=== PATIENT | female | born 1950 | race Caucasian/White ===

== ENCOUNTER 2019-10-13 07:58 | Outpatient (RCR) | payer OTHER, SELFPAY ==
[2019-10-15 06:27] LABS: Basophils Percent Auto 0.4 % (0.2-1.2); Eosinophils Absolute Auto 0.2 K/mm3 (0-0.3); Eosinophils Percent Auto 3.1 % (0-4.4); Hematocrit 32.9 % (37.0-47.0); Hemoglobin 10.3 g/dL (12.0-15.0); Immature Granulocyte Absolute 0.02 K/mm3 (0.00-0.031); Immature Granulocyte Percent A 0.3 % (0-0.5); Lymphocytes Absolute Auto 2.45 K/mm3 (0.9-3.2); Lymphocytes Percent Auto 36.2 % (18.3-44.2); Mean Corpuscular HGB Conc 31.3 g/dl (32-36); Mean Corpuscular Hemoglobin 23.6 pg (26-34); Mean Corpuscular Volume 75.5 fl (80-100); Mean Platelet Volume 9.4 fl (7.4-10.4); Monocytes Absolute Auto 0.7 K/mm3 (0.1-0.6); Monocytes Percent Auto 10.1 % (2.6-8.5); Neutrophils Absolute Auto 3.4 K/mm3 (1.3-6.7); Neutrophils Percent Auto 49.9 % (45.5-73.1); Platelet Count Result 318 k/mm3 (150-375); Red Blood Count 4.36 M/mm3 (4.2-5.4); Red Cell Distribution Width 18.7 % (11.5-14.5); White Blood Count 6.8 K/mm3 (4.5-10.0)
[2019-10-15 06:41] LABS: Alanine Aminotransferase 51 U/L (4-35); Alkaline Phosphatase 123 U/L (38-126); Aspartate Amino Transferase 41 U/L (14-36); Bilirubin,Total 0.2 mg/dL (0.2-1.3); Blood Urea Nitrogen 9 mg/dL (7-17); Calcium 9.4 mg/dL (8.4-10.2); Carbon Dioxide 25 mmol/L (22-30); Chloride 101 mmol/L (98-107); Cholesterol 102 mg/dL (0-200); Estimated Glomerular Filt Rate 55; Glucose 145 mg/dL (65-105); HDL Direct 30 mg/dL; Potassium 3.3 mmol/L (3.4-5.0); Sodium 139 mmol/L (137-145); Triglycerides 142 mg/dL (<150)
[2019-10-15 06:52] LABS: LDL Cholesterol Direct 54 mg/dL
[2019-10-15 09:14] LABS: Hemoglobin A1C 6.8 % (<5.7)
== END 2020-01-11 23:59 | disposition home or self-care (01) ==
LOC: CAMBRIDGE 07:58
DX: E78.2 Mixed hyperlipidemia (principal); E11.9 Type 2 diabetes mellitus without complications; E03.9 Hypothyroidism, unspecified; I10 Essential (primary) hypertension
CPT/HCPCS: 36415; 80053; 80061; 83036; 84443; 85025

== ENCOUNTER 2020-10-17 14:12 | Inpatient (IN) | payer OTHER, SELFPAY ==
[2020-10-17] VITALS (7 sets, daily range): BP systolic 141–157; BP diastolic 59–70; PULSE 71–82; RESP 18–28; TEMP 36.7–37.1; O2SAT 92–99; BMI 33.7; BMI 33.4
--- NOTE | ~2020-10-17 | XR_ITS ---
EXAMINATION: XR chest 1V portable DATE: 10/19/2020 06:10 INDICATION: Bilateral pleural effusions. Respiratory failure. TECHNIQUE: frontal view of the chest was obtained. COMPARISON: Chest radiograph and CT dated 10/17/2020 FINDINGS: Streaky opacities in the right midlung zone and at the bilateral lung bases. Small more patchy airspa ce opacity in the left lower lung zone. No pneumothorax or evident pleural effusion. Heart size is no rmal. Moderate-sized hiatal hernia. IMPRESSION: 1. Mild opacities in the right mid and bilateral lower lung zones which could represent atelectasis o r pneumonia. Reviewed, dictated and finalized at location A. OPERATOR IMPRESSION: 1. Mild opacities in the right mid and bilateral lower lung zones which could r epresent atelectasis or pneumonia.
--- NOTE | ~2020-10-17 | XR_ITS ---
EXAMINATION: XR chest 2V DATE: 10/17/2020 15:11 INDICATION: Shortness of breath TECHNIQUE: AP and lateral views of the chest are obtained. COMPARISON: 08/07/2019 FINDINGS: Small pleural effusions are present. There are airspace opacities of the lung bases. No pne umothorax is identified. The heart size is normal. There is a moderate-sized sliding hiatal hernia. T here is moderate thoracic spondylosis. IMPRESSION: 1. Small pleural effusions. 2. Minimal bibasilar airspace opacity, consistent with atelectasis versus pneumonia. Reviewed, dictated and finalized at location A. DYEING MACHINE LOADER IMPRESSION: 1. Small pleural effusions. 2. Minimal bibasilar airspace opacity, consistent with atelectasis versus pneum onia.
--- NOTE | ~2020-10-17 | CT_ITS ---
EXAMINATION: CTA chest PE protocol EXAM DATE: 10/17/2020 16:36 INDICATION: Shortness of breath and elevated d-dimer. TECHNIQUE: Spiral CTA of the chest (pulmonary arteries) was performed with 100 cc Omnipaque 350 intr avenous contrast injection. Images were acquired during the pulmonary arterial phase. Coronal maxi mum intensity projection 3D-reconstructions were created by the technologist on dedicated workstation . Axial, coronal and sagittal reformatted images were reviewed. The dose-length product (DLP) for t his examination was 963.26 mGy-cm. The exposure was tailored according to patient size (auto mA exp osure control), and iterative reconstruction (ASIR) was used as additional dose reduction technique. Comparison is made to prior examination from 12/24/2018. FINDINGS: Mild to moderate emphysema. There is some respiratory motion limiting evaluation of the bas ilar segmental pulmonary arteries. There are no intraluminal filling defects identified. Small to mod erate left, and small right pleural effusions. Heart is normal in size. There is pulmonary vascular c ongestion. There is increased basilar reticulation most likely pulmonary edema. Approximately 1 cm re gion of left upper lobe subsolid attenuation, could be edema or infection, but recommend one-month fo llow-up chest CT to exclude cancer. There is also some dependent atelectasis and possibly infection, clinical correlation. There is large gastroesophageal hiatal hernia. There are enlarged mediastinal lymph nodes, with one node or nodes m easuring 1.2 x 2.0 cm. These are new compared to previous examination. Small bilateral renal lesions statistically most likely cysts. Chronic L1 burst fracture unchanged. There are no osteoblastic or os teolytic lesions identified. IMPRESSION: 1. Pulmonary vascular congestion, and probable pulmonary edema. CHF exacerbation? 2. Small to moderate left, small right pleural effusions. Adjacent subsegmental posterior sulcal ate lectasis and probably pneumonia. 3. Indeterminate left upper lobe 1 cm nodular opacity. 4. Development of mediastinal lymphadenopathy, could be reactive. Lymphoma or metastatic disease not excludable. 5. Chronic L1 burst fracture. 6. Large gastroesophageal hiatal hernia. 7. Follow-up chest CT recommended in 1-3 months for the lymphadenopathy and left upper lobe nodular density. 8. No pulmonary emboli suspected. Reviewed, dictated and finalized at location B. RETE POINTER IMPRESSION: 1. Pulmonary vascular congestion, and probable pulmonary edema. CHF exacerbati on? 2. Small to moderate left, small right pleural effusions. Adjacent subsegmenta l posterior sulcal atelectasis and probably pneumonia. 3. Indeterminate left upper lobe 1 cm nodular opacity. 4. Development of mediastinal lymphadenopathy, could be reactive. Lymphoma or metastatic disease not excludable. 5. Chronic L1 burst fracture. 6. Large gastroesophageal hiatal hernia. 7. Follow-up chest CT recommended in 1-3 months for the lymphadenopathy and le ft upper lobe nodular density. 8. No pulmonary emboli suspected.
--- NOTE | 2020-10-17 14:13 | ECG_ITS ---
Measurements Intervals [place] Rate: 78 P: 59 [place]: 170 QRS: 9 QRSD: 89 T: 56 QT: 387 QTc: 443 Interpretive Statements SINUS RHYTHM BASELINE ARTIFACT- I, II, AVR, AVL, AVF, V1-V6 NORMAL ECG Electronically Signed On 10-17-2020 14:36:13 EXCHANGE ADMINISTRATOR by Rio Gannon D.O.
--- NOTE | 2020-10-17 14:56 | ED.SOB ---
HPI - SOB/Dyspnea General Chief Complaint: Shortness of Breath/Dyspnea Stated Complaint: DIFFICULTY BREATHING X1 WEEK Time Seen by Provider: 10/17/20 14:49 Source: patient and EMS Mode of arrival: EMS Limitations: no limitations History of Present Illness HPI Narrative: Patient is 70 years old white female came from [facility] with a chief complaint of shortness of breath over the last few days with hypoxia. The skilled nursing staff is telling me that the account leader staff been tested positive for Covid over the last few days. Including the manager of program.. Patient Covid test was negative 1-week ago, was scheduled to get a Covid test today, but came to the emergency room instead. Related Data Home Medications Medication Instructions Recorded Confirmed albuterol sulfate 90 mcg/actuation 1 puff INHALATION Q4H PRN 06/06/20 aerosol inhaler amlodipine 5 mg tablet 5 mg PO DAILY 06/06/20 atenolol 50 mg tablet 50 mg PO DAILY 06/06/20 buspirone 15 mg tablet 15 mg PO BID 06/06/20 citalopram 20 mg tablet 20 mg PO DAILY 06/06/20 fluoxetine 10 mg capsule 10 mg PO DAILY 06/06/20 fluticasone furoate 50 INHALATION 06/06/20 mcg/actuation blister powder for inhalation hydralazine 50 mg tablet 50 mg PO TID 06/06/20 metformin 1,000 mg tablet 1,000 mg PO DAILY 06/06/20 oxybutynin chloride 5 mg tablet 5 mg PO DAILY 06/06/20 pravastatin 40 mg tablet 40 mg PO DAILY 06/06/20 clonazepam 10/17/20 lactulose [Generlac] 10/17/20 metoclopramide HCl 10 mg PO BID 10/17/20 ranitidine HCl mg 10/17/20 trazodone 10/17/20 Allergies Allergy/AdvReac Type Severity Reaction Status Date / Time No Known Allergies Allergy Verified 10/17/20 18:00 Review of Systems Review of Systems: Narrative: CONSTITUTIONAL: Denies fever, chills, or sweats. EYES: Denies visual changes, redness, or discharge. ENT: Denies rhinorrhea, congestion, sore throat, or otalgia. CARDIOVASCULAR: Denies chest pain, palpitations, or edema. RESPIRATORY: Denies cough or dyspnea. GASTROINTESTINAL: Denies abdominal pain, nausea, vomiting, or diarrhea. GENITOURINARY: Denies dysuria or hematuria. SKIN: Denies rash or itching. MUSCULOSKELETAL: Denies back pain, joint pain, or myalgia. NEUROLOGIC: Denies headache, numbness, or weakness. PSYCHIATRIC: Denies anxiety or depression. PMFSH Past Medical History Medical History Acute sinusitis Acute urinary tract infection Anemia Anxiety Bipolar II disorder Bladder irritability Chest pain Colonoscopy causing post-procedural bleeding Constipation Deep venous thrombosis of lower extremity Essential hypertension GERD (gastroesophageal reflux disease) Hiatal hernia Hyperlipemia Hypothyroidism Irritable bowel syndrome with constipation Knee pain Liver function test abnormality Metabolic syndrome Mixed anxiety and depressive disorder Multiple fracture Multiple nodules of lung Nausea Occult blood in stools Recurrent urinary tract infection Renal failure syndrome Simple renal cyst Type 2 diabetes mellitus Family History Family History Other Diabetes mellitus Family history of alcoholism Family history of arthritis Family history of blood dyscrasia Family history of malignant neoplasm Family history of mental disorder Hypertension Social History Social History Smoking status: Never smoker Alcohol intake: never Exam Narrative: Exam Narrative: General appearance: Well-developed, well-nourished, restless, slight labored breathing Skin: Normal color Head: Normocephalic, nontraumatic Eyes: Clear conjunctiva ENT: Oropharynx normal, ears normal, nose normal Neck: Supp
[2020-10-17 14:58] LABS: Basophils Percent Auto 0.4 % (0.2-1.2); Eosinophils Absolute Auto 0.1 K/mm3 (0-0.3); Eosinophils Percent Auto 1.5 % (0-4.4); Hematocrit 31.2 % (37.0-47.0); Hemoglobin 9.7 g/dL (12.0-15.0); Immature Granulocyte Absolute 0.04 K/mm3 (0.00-0.031); Immature Granulocyte Percent A 0.5 % (0-0.5); Lymphocytes Absolute Auto 1.22 K/mm3 (0.9-3.2); Lymphocytes Percent Auto 14.8 % (18.3-44.2); Mean Corpuscular HGB Conc 31.1 g/dl (32-36); Mean Corpuscular Hemoglobin 25.3 pg (26-34); Mean Corpuscular Volume 81.3 fl (80-100); Monocytes Absolute Auto 0.7 K/mm3 (0.1-0.6); Monocytes Percent Auto 8.5 % (2.6-8.5); Neutrophils Absolute Auto 6.1 K/mm3 (1.3-6.7); Neutrophils Percent Auto 74.3 % (45.5-73.1); Platelet Count Result 326 k/mm3 (150-375); Red Blood Count 3.84 M/mm3 (4.2-5.4); Red Cell Distribution Width 18.4 % (11.5-14.5); White Blood Count 8.3 K/mm3 (4.5-10.0)
[2020-10-17 15:15] LABS: Anion Gap 11 mmol/L (8-16); Blood Urea Nitrogen 16 mg/dL (7-17); Calcium 8.8 mg/dL (8.4-10.2); Carbon Dioxide 19 mmol/L (22-30); Chloride 106 mmol/L (98-107); Estimated CRCL calculation 52 ml/min; Estimated Glomerular Filt Rate 49; Glucose 133 mg/dL (65-105); Potassium 3.9 mmol/L (3.4-5.0); Sodium 136 mmol/L (137-145)
[2020-10-17 15:17] LABS: Alveolar/Arterial O2 Gradient 45.1 mmHg; Base Excess ABG -7.1 mEq/l (+/-2.0); Device ROOM AIR; Fractional Inspired Oxygen 21 %; HCO3 ABG 16.4 mEq/l (22.0-26.0); Modified Allen's Test Pass; Oxygen Content ABG 13.9 %vol (16.0-22.0); Oxygen Saturation ABG 94.9 % (95.0-100.0); Oxyhemoglobin 92.9 % THb (90.0-100.0); PCO2 ABG 27.1 mmHg (35.0-45.0); PO2 ABG 72.2 mmHg (80.0-100.0); PO2 FiO2 Ratio Arterial Blood 3.44 %; Site Drawn RIGHT RADIAL; Total Hemoglobin 10.6 g/dL (12.0-18.0); pH ABG 7.401 (7.350-7.450)
[2020-10-17 16:00] LABS: Prothrombin Time 14.2 Seconds (11.1-14.7)
[2020-10-17 16:03] LABS: D Dimer 0.85 ug/mL (<0.48)
[2020-10-17 16:05] LABS: Alanine Aminotransferase 34 U/L (4-35); Albumin Level 3.9 g/dL (3.5-5.1); Alkaline Phosphatase 127 U/L (38-126); Aspartate Amino Transferase 46 U/L (14-36); Bilirubin,Total 0.4 mg/dL (0.2-1.3); CRP 0.9 mg/dL (<1.0)
[2020-10-17 16:21] LABS: Lactic Acid Reflex 3.8 mmol/L (0.7-2.1)
--- NOTE | 2020-10-17 16:30 | PM.IMHP ---
H&P: HPI History of Present Illness Date/Time: 10/17/20 16:30 Chief Complaint: Shortness of breath. Narrative: Marcela Rayo is a 70-year-old female with type 2 diabetes mellitus, hypertension, chronic anemia, and bipolar disorder who presented to the emergency department earlier today via EMS from [facility] for evaluation of shortness of breath. Over the past week or so she reports progressive shortness of breath, sinus congestion, orthopnea, and cough occasionally productive of clear phlegm. Multiple staff members at [facility] have tested positive for COVID-19 over the past weekend and she was sent in today for evaluation. On EMS arrival her SpO2 was 88% on room air and she was placed on 3 L nasal cannula. Imaging done in the emergency department showed findings consistent with possible congestive heart failure as well as pneumonia, and she is being admitted in this setting. She has no known history of coronary artery disease or congestive heart failure and denies exertional chest pain. She has not had nausea or vomiting. No fever, chills, or sweats. Review of Systems Review of Systems: Narrative: Twelve systems were reviewed with pertinent positives and negatives as per HPI. No headache. She denies anosmia and dysgeusia. No palpitations or racing heart. Mild orthopnea. No significant lower extremity edema. She denies PND. Appetite has been okay. No nausea, vomiting, or diarrhea. No dysuria. Since receiving Lasix in the emergency department she has urinated quite a bit. She believes her diabetes is fairly well controlled. No blurry vision, polydipsia, or polyuria. [facility] Past Medical History Medical History (Updated 10/17/20 @ 23:35 by Radha Wolff PA-C) Anxiety Bipolar II disorder Chronic anemia Essential hypertension Fracture Including fractures of the pelvis, right wrist, foot, and ankle. Gastroesophageal reflux disease Hiatal hernia History of deep venous thrombosis Hyperlipemia Hypothyroidism Irritable bowel syndrome with constipation Metabolic syndrome Mixed anxiety and depressive disorder Multiple nodules of lung Recurrent urinary tract infection Schizophrenia Type 2 diabetes mellitus Hemoglobin A1c was 6.8% in September 2019. Surgical History Surgical History (Updated 10/17/20 @ 23:24 by Radha Wolff PA-C) History of section History of tubal ligation Family History Family History Other Diabetes mellitus Family history of alcoholism Family history of arthritis Family history of blood dyscrasia Family history of malignant neoplasm Family history of mental disorder Hypertension Social History Social History (Updated 10/17/20 @ 23:25 by Radha Wolff PA-C) Social History: The patient is a resident of [facility]. Lifelong nonsmoker. No alcohol or illicit substance use. Her daughter Jing Marinelli is her healthcare power of box finisher and she wishes to be a full code. Substance use: never Gender identity (if verbalized by the patient): Female Spiritual care concerns: No Meds Home Medications and Allergies Home Medications Medication Instructions Recorded Confirmed Type albuterol sulfate 90 mcg/actuation 1 puff INHALATION Q4H PRN 06/06/20 History aerosol inhaler amlodipine 5 mg tablet 5 mg PO DAILY 06/06/20 History atenolol 50 mg tablet 50 mg PO DAILY 06/06/20 History buspirone 15 mg tablet 15 mg PO BID 06/06/20 History citalopram 20 mg tablet 20 mg PO DAILY 06/06/20 History fluoxetine 10 mg capsule 10 mg PO DAILY 06/06/20 History fluticasone furoate 50 INHALATION 06/06/20 History mcg/actuation blister powder for inhalation hydralazine 50 mg tablet 50 mg PO TID 06/06/20 History metformin 1,000 mg tablet 1,000 mg PO DAILY 06/06/20 History oxybutynin chloride 5 mg tablet 5 mg PO DAILY 06/06/20 History pravastatin 40 mg tablet 40 mg PO DAILY 06/06/20 Hi
[2020-10-17 17:45] LABS: NT Pro B Type Natriuretic Pept 1560 PG/ML (5-100)
[2020-10-17] MEDS: NITROGLYCERIN OINTMENT 1 INCH DOSE TRANSDERM (18:40)
[2020-10-17] MEDS: FUROSEMIDE INJ 40 MG/4 ML VIAL 60 MG IV PUSH (18:42)
[2020-10-17 19:06] LABS: Reflex Lactic Acid Yes or No Add Lactic
[2020-10-17 19:29] LABS: Add Urine Microscopic? YES; Appearance Urine Clear (Clear); Bilirubin Urine Negative (Negative); Blood Urine Negative (Negative); Color Urine Colorless (Yellow); Glucose Urine UA Negative (Negative); Ketones Urine Negative (Negative); Leukocyte Esterase Ur 3+ LEU/UL (Negative); Nitrate Urine Negative (Negative); Protein Urine Negative (Negative); RBC Urine 0-2 /hpf (0-2); Renal Epithelial Cells Urine Rare /hpf (None Seen); Specific Grav Ur 1.013 (1.001-1.035); Squamous Epithelial Cell Urine Occasional /hpf (Few); Urobilinogen Urine Negative mg/dL (<2.0); WBC Urine 21-30 /hpf
[2020-10-17 19:40] LABS: Lactic Acid 2.3 mmol/L (0.7-2.1)
[2020-10-17] MEDS: FUROSEMIDE INJ 40 MG/4 ML VIAL 20 MG IV PUSH (20:49)
--- NOTE | 2020-10-17 23:16 | ADMGEN ---
This patient, Marcela Rayo, was admitted to 3 [facility] Surg Room 311-01. Patient/family oriented to hospital policies and general routines including ID bracelet, bed and alarms, visiting hours, pain management, procedures, bathroom and other care routines, personal items, smoking policy, room service/diet, and visiting hours. Information on how to activate the Rapid Response Team has been discussed. Patient/Family are encouraged to report perceived risks to care and to ask questions if they do not understand what they are told or what they should do.
[2020-10-18] VITALS (8 sets, daily range): BP systolic 139–159; BP diastolic 62–80; PULSE 68–88; RESP 16–20; TEMP 36.8–37.1; O2SAT 90–98
[2020-10-18 06:29] LABS: Hemoglobin A1C 5.7 % (<5.7)
[2020-10-18 06:37] LABS: Anion Gap 10 mmol/L (8-16); Blood Urea Nitrogen 14 mg/dL (7-17); Calcium 8.5 mg/dL (8.4-10.2); Carbon Dioxide 26 mmol/L (22-30); Chloride 100 mmol/L (98-107); Estimated CRCL calculation 46 ml/min; Estimated Glomerular Filt Rate 45; Glucose 105 mg/dL (65-105); Magnesium 1.8 mg/dL (1.6-2.3); Sodium 136 mmol/L (137-145)
[2020-10-18] MEDS: POTASSIUM CHLORIDE 20 MEQ TABLET.ER PO (08:15)
[2020-10-18] MEDS: FUROSEMIDE INJ 40 MG/4 ML VIAL 20 MG IV PUSH ×2 (08:16→20:59)
[2020-10-18] MEDS: POTASSIUM CHLORIDE 20 MEQ TABLET PO (08:17)
[2020-10-18 08:27] LABS: Glucose Point of Care 106 (65-105)
[2020-10-18] MEDS: DOCUSATE SODIUM 100 MG CAPSULE PO (10:54)
[2020-10-18] MEDS: busPIRone HCL 10 MG TABLET 30 MG PO ×2 (10:54→17:17)
[2020-10-18] MEDS: metFORMIN HCL 500 MG TABLET 1000 MG PO ×2 (10:54→17:18)
[2020-10-18] MEDS: PANTOPRAZOLE 40 MG TABLET PO (10:54)
[2020-10-18] MEDS: CITALOPRAM HYDROBROMIDE 20 MG TABLET PO (10:54)
[2020-10-18] MEDS: atenoloL 50 MG TABLET PO (10:55)
[2020-10-18] MEDS: FLUoxetine HCL 10 MG CAPSULE PO (10:55)
[2020-10-18] MEDS: OXYBUTYNIN CHLORIDE 5 MG TABLET 10 MG PO (10:55)
[2020-10-18] MEDS: amLODIPine BESYLATE 5 MG TABLET PO (10:55)
[2020-10-18] MEDS: PRAVASTATIN SODIUM 20 MG TABLET 40 MG PO (10:55)
[2020-10-18] MEDS: hydrALAZINE HCL 50 MG TABLET PO ×2 (10:55→17:17)
[2020-10-18 12:27] LABS: Glucose Point of Care 114 (65-105)
--- NOTE | 2020-10-18 13:55 | PM.IMPN ---
Progress Note: A&P Assessment and Plan (1) Acute respiratory failure with hypoxia: Code(s): J96.01 - Acute respiratory failure with hypoxia Status: Acute Assessment and Plan: Suspect may be related to BRAULIO pleural effusion, possible pneumonia, COVID pending. Continue supplemental O2 and wean as tolerated to keep O2 saturations > 90%. (2) Bilateral pleural effusion: Code(s): J90 - Pleural effusion, not elsewhere classified Status: Acute Assessment and Plan: Noted on imaging with adjacent atelectasis and probable pneumonia. Continue diuresis with IV lasix and monitor electrolytes. Continue abx with azithro and rocephin for likely pneumonia while awaiting COVID results. Echocardiogram pending. Repeat chest XR in AM, consider thoracentesis if no improvement. (3) Chronic anemia: Code(s): D64.9 - Anemia, unspecified Status: Chronic Assessment and Plan: Chronic based on review of previous labs. No evidence for acute bleeding. Check iron panel, B12, folate tomorrow. Monitor CBC. (4) Type 2 diabetes mellitus: Qualifiers: Diabetes mellitus group home insulin use: with cuff setter use Diabetes mellitus complication status: without complication Qualified Code(s): E11.9 - Type 2 diabetes mellitus without complications; Z79.4 - dispatch clerk (current) use of insulin Code(s): E11.9 - Type 2 diabetes mellitus without complications Status: Chronic Assessment and Plan: Hgb A1c 5.7%; continue home metformin. Monitor with accu-cheks and cover with SSI. (5) Essential hypertension: Code(s): I10 - Essential (primary) hypertension Status: Chronic Assessment and Plan: Stable, last 139/62. Continue home norvasc, atenolol, hydralazine. (6) Psychiatric illness: Code(s): F99 - Mental disorder, not otherwise specified Status: Chronic Assessment and Plan: Continue her home regimen; citalopram, clonazepam, fluoxetine. (7) Pulmonary nodule: Code(s): R91.1 - Solitary pulmonary nodule Status: Acute Assessment and Plan: Indeterminate left upper lobe 1cm nodule. Recommend follow up CT in 1 to 3 months. (8) Acute hypokalemia: Code(s): E87.6 - Hypokalemia Status: Acute Assessment and Plan: K low at 3.0 this AM and replaced. Monitor K and mag and replace as needed. Subjective Date/time seen: 10/18/20 1200 Interval history: Ms. Rayo is a 70yo F admitted for acute respiratory failure. She tells me her shortness of breath is improved. She denies chest pain. Did not sleep much last night. Tolerated some breakfast without nausea or vomiting. Denies lower extremity swelling. Was a bit agitated with nursing this morning but seems improved this afternoon after getting her medications restarted. Review of Systems Review of Systems: All systems reviewed & are unremarkable except as noted in HPI and below Exam Narrative: Exam Narrative: General: Well-developed female resting comfortably supine in bed in no distress. HEENT: Normocephalic. EOMI. Sclerae anicteric. Oral mucosa moist. Neck: Supple. No lymphadenopathy. Respiratory: Diminished breath sounds BRAULIO ++. Respirations are even and nonlabored. She is speaking in full sentences. Cardiovascular: Regular rate and rhythm. Gastrointestinal: Abdomen is soft, nontender, and nondistended, bowel sounds present. Skin: Warm and dry. Extremities: 2+ radial and pedal pulses BRAULIO. No edema. Neurological: No focal neurologic deficits noted. Speech is clear. Objective Data Vital Signs Vital Signs: Last Vi
[2020-10-18 17:22] LABS: Glucose Point of Care 107 (65-105)
[2020-10-18 18:44] LABS: SARS-CoV-2 RNA PCR Negative
[2020-10-18] MEDS: MAGNESIUM OXIDE 200 MG TABLET PO (21:01)
[2020-10-18] MEDS: traZODone HCL 50 MG TABLET 100 MG PO (21:01)
[2020-10-18 21:14] LABS: Glucose Point of Care 116 (65-105)
[2020-10-19] VITALS (8 sets, daily range): BP systolic 131–142; BP diastolic 45–61; PULSE 70–88; RESP 16–20; TEMP 36.3–36.7; O2SAT 90–99
--- NOTE | 2020-10-19 | ECHO_ITS ---
Patient Info Name: Marcela Rayo Age: 70 years : 1950 Gender: Female Ht: 66 in Wt: 207 lbs BSA: 2.13 m2 HR: 75 bpm BP: 144 / 80 mmHg Heart Rhythm: Sinus Rhythm Technical Quality: Good Exam Date: 10/19/2020 8:15 AM Exam Location: [facility] Patient Status: Inpatient Admit Date: 10/17/2020 Staff Ordering Physician: Radha Wolff PA-C Rotary Adjuster: Tej Lucero RDCS, RT Attending Provider: Brianna Su PA-C Referring Physician: New GUEVARA; Exam Type: CA echo doppler color flow Study Info Indications I10 - Essential (primary) hypertension Complete two-dimensional, color flow and Doppler transthoracic echocardiogram is performed. Strain analysis performed. Summary 1. Complete two-dimensional, color flow and Doppler transthoracic echocardiogram is performed. 2. Left ventricular chamber dimension is normal. 3. Left ventricular systolic function is normal, estimated at 55-60%. 4. Left atrial chamber dimension is mildly enlarged. 5. Trivial jet mitral regurgitation otherwise no significant valvular disease. Left Ventricle Left ventricular chamber dimension is normal. Left ventricular systolic function is normal, estimated at 55-60%. The left ventricular diastolic function is normal. Right Ventricle Right ventricular chamber dimension is normal. Left Atria Left atrial chamber dimension is mildly enlarged. Right Atria Right atrial chamber dimension is normal. Aortic Valve The aortic valve is normal. Pulmonic Valve The pulmonic valve is normal. Mitral Valve The mitral valve has normal leaflets. There is trace mitral valve regurgitation. Tricuspid Valve The tricuspid valve leaflets are normal. Pericardium/Pleural The pericardium appears normal. Aorta The aortic root size at the sinus of Valsalva is normal. Left Ventricular Outflow Tract Name Value Normal LVOT 2D LVOT Diameter 1.9 cm LVOT Doppler LVOT Peak Gradient 4 mmHg LVOT Mean Gradient 2 mmHg LVOT VTI 24 cm LVOT VTI/AV VTI Ratio 0.7 LVOT Stroke Volume 66 ml LVOT CO 4.8 l/min LVOT CI 2.2 l/min/m2 Mitral Valve Name Value Normal MV Doppler MV Decel [place] 496 cm/s2 MV PHT 64 ms MV Area (PHT) 3.4 cm2 4.0-5.0 MV Diastolic Function MV E Peak Velocity 110 cm/s MV A Peak Velocity 95 cm/s MV E/A 1.2 MV Decel Time 222 ms
[2020-10-19 06:11] LABS: Basophils Percent Auto 0.5 % (0.2-1.2); Eosinophils Absolute Auto 0.4 K/mm3 (0-0.3); Eosinophils Percent Auto 4.5 % (0-4.4); Hematocrit 30.5 % (37.0-47.0); Hemoglobin 9.4 g/dL (12.0-15.0); Immature Granulocyte Absolute 0.03 K/mm3 (0.00-0.031); Immature Granulocyte Percent A 0.4 % (0-0.5); Lymphocytes Absolute Auto 1.92 K/mm3 (0.9-3.2); Mean Corpuscular HGB Conc 30.8 g/dl (32-36); Mean Corpuscular Volume 81.1 fl (80-100); Mean Platelet Volume 9.5 fl (7.4-10.4); Monocytes Absolute Auto 0.7 K/mm3 (0.1-0.6); Monocytes Percent Auto 8.1 % (2.6-8.5); Neutrophils Percent Auto 62.5 % (45.5-73.1); Platelet Count Result 291 k/mm3 (150-375); Red Blood Count 3.76 M/mm3 (4.2-5.4); Red Cell Distribution Width 18.1 % (11.5-14.5)
[2020-10-19 06:17] LABS: INR 1.1; Prothrombin Time 14.8 Seconds (11.1-14.7)
[2020-10-19 06:22] LABS: Alanine Aminotransferase 28 U/L (4-35); Albumin Level 3.7 g/dL (3.5-5.1); Alkaline Phosphatase 125 U/L (38-126); Anion Gap 10 mmol/L (8-16); Aspartate Amino Transferase 31 U/L (14-36); Bilirubin,Total 0.4 mg/dL (0.2-1.3); Blood Urea Nitrogen 14 mg/dL (7-17); Calcium 8.5 mg/dL (8.4-10.2); Carbon Dioxide 28 mmol/L (22-30); Chloride 101 mmol/L (98-107); Estimated CRCL calculation 46 ml/min; Estimated Glomerular Filt Rate 45; Glucose 106 mg/dL (65-105); Magnesium 1.9 mg/dL (1.6-2.3); Potassium 3.8 mmol/L (3.4-5.0); Sodium 139 mmol/L (137-145)
[2020-10-19 07:12] LABS: Iron 13 ug/dL (37-170)
[2020-10-19 07:21] LABS: Percent Iron Saturation 3 % (20-50)
[2020-10-19 08:13] LABS: Glucose Point of Care 117 (65-105)
[2020-10-19 08:23] LABS: Folic Acid 16.4 ng/mL (2.76->20)
[2020-10-19] MEDS: POTASSIUM CHLORIDE 20 MEQ TABLET.ER PO (08:43)
[2020-10-19] MEDS: MAGNESIUM OXIDE 200 MG TABLET PO (08:43)
[2020-10-19] MEDS: FLUoxetine HCL 10 MG CAPSULE PO (08:44)
[2020-10-19] MEDS: amLODIPine BESYLATE 5 MG TABLET PO (08:44)
[2020-10-19] MEDS: OXYBUTYNIN CHLORIDE 5 MG TABLET 10 MG PO (08:44)
[2020-10-19] MEDS: PANTOPRAZOLE 40 MG TABLET PO (08:44)
[2020-10-19] MEDS: PRAVASTATIN SODIUM 20 MG TABLET 40 MG PO (08:44)
[2020-10-19] MEDS: DOCUSATE SODIUM 100 MG CAPSULE PO (08:44)
[2020-10-19] MEDS: metFORMIN HCL 500 MG TABLET 1000 MG PO (08:44)
[2020-10-19] MEDS: atenoloL 50 MG TABLET PO (08:45)
[2020-10-19] MEDS: busPIRone HCL 10 MG TABLET 30 MG PO (08:45)
[2020-10-19] MEDS: CITALOPRAM HYDROBROMIDE 20 MG TABLET PO (08:45)
[2020-10-19] MEDS: FUROSEMIDE INJ 40 MG/4 ML VIAL 20 MG IV PUSH (08:45)
[2020-10-19] MEDS: hydrALAZINE HCL 50 MG TABLET PO ×2 (11:32→11:48)
[2020-10-19 11:37] LABS: Glucose Point of Care 127 (65-105)
--- NOTE | 2020-10-19 12:47 | PM.DS ---
DS: Admitting Diagnosis Admitting Diagnosis Admitting Diagnosis: Acute respiratory failure, pleural effusion, pneumonia DS: Discharge Diagnosis Discharge Diagnosis (1) Acute respiratory failure with hypoxia: Code(s): J96.01 - Acute respiratory failure with hypoxia Status: Acute Assessment and Plan: Date of Admission 10/17/20 Date of Discharge/DOS 10/19/20 Ms. Rayo is a 70yo F with history of bipolar disorder, hypertension, chronic anemia, and type-2 diabetes mellitus who presented to the ED from [facility] for evaluation of shortness of breath worsening over 1 week, noted to be 88% O2 on room air by EMS. Imaging demonstrated BRAULIO pleural effusions with a possible adjacent pneumonia. COVID negative. She was treated with IV azithromycin and rocephin for possible pneumonia. She has erythromycin based listed on allergy list however she tolerated azithromycin with no issues while hospitalized. She responded well to diuresis with IV lasix and repeat chest XR was improved without pleural effusions. She was able to be weaned off supplemental O2 after requiring up to 3L/min and was tolerating room air with adequate oxygen saturations on day of discharge. Blood pressures were stable maintained on her home antihypertensive regimen. Mood remained mostly stable on her psychiatric medication regimen without issue. She was hemodynamically stable for discharge back to assisted living on 10/19/20. Imaging did demonstrate a small lung nodule that should be followed up outpatient with repeat CT in 1 to 3 months. Suspect may be related to BRAULIO pleural effusion, possible pneumonia, COVID negative. Resolved, tolerating room air day of discharge. (2) Bilateral pleural effusion: Code(s): J90 - Pleural effusion, not elsewhere classified Status: Acute Assessment and Plan: Improved. Noted on imaging with adjacent atelectasis and probable pneumonia. Diuresis with IV lasix and monitor electrolytes. abx with azithro and rocephin for likely pneumonia. Echocardiogram normal, detailed below. (3) Chronic anemia: Code(s): D64.9 - Anemia, unspecified Status: Chronic Assessment and Plan: Chronic based on review of previous labs. No evidence for acute bleeding. Iron low, start oral supplementation. Monitor CBC. (4) Type 2 diabetes mellitus: Qualifiers: Diabetes mellitus assisted insulin use: with terminal manager use Diabetes mellitus complication status: without complication Qualified Code(s): E11.9 - Type 2 diabetes mellitus without complications; Z79.4 - superintendent container terminal (current) use of insulin Code(s): E11.9 - Type 2 diabetes mellitus without complications Status: Chronic Assessment and Plan: Hgb A1c 5.7%; continue home metformin. (5) Essential hypertension: Code(s): I10 - Essential (primary) hypertension Status: Chronic Assessment and Plan: Stable maintained on home norvasc, atenolol, hydralazine. (6) Psychiatric illness: Code(s): F99 - Mental disorder, not otherwise specified Status: Chronic Assessment and Plan: Continue her home regimen; citalopram, clonazepam, fluoxetine. (7) Pulmonary nodule: Code(s): R91.1 - Solitary pulmonary nodule Status: Acute Assessment and Plan: Indeterminate left upper lobe 1cm nodule. Recommend follow up CT in 1 to 3 months. (8) Acute hypokalemia: Code(s): E87.6 - Hypokalemia Status: Acute Assessment and Plan: K low and replaced, suspect secondary to IV diuresis. DS: S
[2020-10-19 22:37] LABS: Pneumococcal Antigen Urine Not Detected (Not Detected)
[2020-10-20 04:40] LABS: Legionella pneumophila Ag Ur Not Detected (Not Detected)
--- NOTE | 2020-10-20 15:53 | PC.NURSE ---
Received call from Ronit at [facility] ([phone]) regarding zithromax antibiotic on discharge instructions. I discussed this with Brianna and the patient had received the antibiotic here iv prior to discharge and did not have any reaction. The patient had vomiting listed as the reaction. OK for patient to receive zithromax per Brianna. Ronit aware.
== END 2020-10-19 16:10 | DRG 139 ==
LOC: ANHED 18:22 → ANH3MEDSUR 18:43
PROVIDERS: Physician Assistant; Admitting Provider Family Medicine; Emergency Provider Emergency Medicine; PCP Internal Medicine; Visit Provider Physician Assistant
DX: J18.9 Pneumonia, unspecified organism (principal); J91.8 Pleural effusion in other conditions classified elsewhere; J96.01 Acute respiratory failure with hypoxia; E11.9 Type 2 diabetes mellitus without complications; Z20.828 Contact with and (suspected) exposure to other viral communicable diseases; D64.9 Anemia, unspecified; I10 Essential (primary) hypertension; R91.1 Solitary pulmonary nodule; F99 Mental disorder, not otherwise specified; F31.81 Bipolar II disorder; E87.6 Hypokalemia; K21.9 Gastro-esophageal reflux disease without esophagitis; K46.9 Unspecified abdominal hernia without obstruction or gangrene; E78.5 Hyperlipidemia, unspecified; K58.1 Irritable bowel syndrome with constipation; F41.8 Other specified anxiety disorders; Z86.718 Personal history of other venous thrombosis and embolism
CPT/HCPCS: 36415; 36600; 71045; 71046; 71275; 80048; 80053; 80076; 81001; 82607; 82746; 82805; 83036; 83540; 83550; 83605; 83735; 83880; 84443; 85025; 85380; 85610; 85730; 86140; 87040; 87086; 87088; 87449; 87635; 87899; 93005; 93306; 96374; 99285; A9270; C9803; J0131; J0456; J0696; J1940; Q9967; U0003

== ENCOUNTER 2020-11-11 09:14 | Outpatient (CLI) | payer OTHER, SELFPAY | END 2020-11-11 09:15 | disposition home or self-care (01) | LOC: ANHAUDIO 09:16 | PROVIDERS: PCP Internal Medicine; Referring Provider Internal Medicine; Visit Provider Internal Medicine | DX: H91.90 Unspecified hearing loss, unspecified ear (principal) | CPT/HCPCS: 92553; 92555; 92567 ==

== ENCOUNTER 2020-12-15 12:57 | Outpatient (RCR) | payer OTHER, SELFPAY | END 2020-12-15 23:59 | disposition home or self-care (01) | LOC: ANHAUDIO 12:57 | PROVIDERS: PCP Internal Medicine; Visit Provider Internal Medicine | DX: Z46.1 Encounter for fitting and adjustment of hearing aid (principal) | CPT/HCPCS: V5160; V5261; V5264 ==

== ENCOUNTER 2021-02-14 08:35 | Outpatient (CLI) | payer OTHER, SELFPAY ==
--- NOTE | 2021-02-15 09:58 | P.NEURO_ITS ---
Neurology EEG Report General Information Date of Study: 02/14/21 TEST eeg DIAGNOSIS Memory loss CONDITION OF RECORDING awake with constant eye movements throughout the tracing EEG NUMBER [id number] CLINICAL HISTORY patient reported she does not know why she is having this particular test other than to make daughter happy EEG DESCRIPTION basic resting occipital frequency consists of low to medium voltage well- organized 8 to 10 hertz per second alpha admixed with multiple movements artifacts and eye movement artifacts. Hyperventilation not done .photic stimulation produced normal drive . Non paroxysmal. Nonfocal. Nonlateralizing. IMPRESSION No significant abnormalities noted
== END 2021-02-14 08:36 | disposition home or self-care (01) ==
LOC: ANHNEURO 08:35
PROVIDERS: PCP Internal Medicine; Visit Provider Psychiatry & Neurology Neurology
DX: R41.3 Other amnesia (principal)
CPT/HCPCS: 95816

== ENCOUNTER 2022-01-23 12:11 | Outpatient (CLI) | payer OTHER, SELFPAY ==
--- NOTE | ~2022-01-23 | CT_ITS ---
EXAMINATION:CT diagnostic chest wo con DATE: 01/23/2022 12:44 INDICATION: Multiple nodules of lung. TECHNIQUE: Computed tomography (CT) of the chest was performed without intravenous contrast. Automate d exposure control and iterative reconstruction technique were employed. The dose-length product (DLP ) was 170.76 mGy-cm. COMPARISON: Chest CT 10/17/2020 FINDINGS: There is mild atelectasis in the lungs. There is a 9 mm part-solid nodule in left upper lob e with interval improvement. There are mild peripheral groundglass opacities with septal thickening i n the lungs, likely chronic lung disease. No bronchiectasis or honeycombing. No pleural effusion. The heart size is normal. No pericardial effusion. There is a moderate-sized sliding hiatal hernia. Ther e is mild mediastinal lymphadenopathy. There are cysts in the kidneys measuring up to 9 mm on the lef t. There is moderate thoracic spondylosis. There is a chronic compression fracture of T6. There is a chronic burst fracture of L1. IMPRESSION: 1. Part-solid nodule in left lung upper lobe with interval improvement, likely benign. 2. Moderate-sized sliding hiatal hernia. 3. Mild mediastinal lymphadenopathy with interval improvement, likely reactive. Reviewed, dictated and finalized at location A.
== END 2022-01-23 12:12 | disposition home or self-care (01) ==
PROVIDERS: PCP Internal Medicine; Visit Provider Internal Medicine
DX: R91.8 Other nonspecific abnormal finding of lung field (principal); K44.9 Diaphragmatic hernia without obstruction or gangrene
CPT/HCPCS: 71250

== ENCOUNTER 2022-07-29 05:13 | Emergency (ER) | payer OTHER, SELFPAY ==
--- NOTE | ~2022-07-29 | CT_ITS ---
EXAMINATION: CT brain wo con DATE: 07/29/2022 05:58 INDICATION: Status post fall with head trauma. TECHNIQUE: Computed tomography (CT) of the head was performed without intravenous contrast. The dose- length product was 605.33 mGy-cm. Automated exposure control and iterative reconstruction technique w ere employed. COMPARISON: CT dated 07/06/2019 FINDINGS: Mild generalized atrophy. There are scattered mild periventricular and subcortical white ma tter changes, most likely related to small vessel ischemic disease (microangiopathy). No ventriculome jaqui or midline shift. Basilar cisterns are patent. No acute intracranial hemorrhage, infarction, mas s or mass effect. There is mucus or tension cyst in the left sphenoid sinus. Mastoids are pneumatized . No depressed skull fractures. IMPRESSION: 1. No acute intracranial abnormality. Reviewed, dictated and finalized at location A.
--- NOTE | ~2022-07-29 | XR_ITS ---
XR ankle RT min 3V 07/29/2022 06:21 Indication: Right ankle pain Procedure: 4 views right ankle Comparison: Comparison to multiple prior studies sequentially, with oldest reviewed study dated 12/30. Findings: There is a healed distal fibular fracture. There is an osteochondral defect medial aspect o f the talus. Osteopenia. There is a degenerative calcaneal enthesophyte. There is atherosclerosis. Mo derate osteoarthritis of the midfoot. Impression: 1: No acute fracture. 2: Osteochondral defect medial aspect of the talar dome. Reviewed, dictated and finalized at location A. Impression: 1: No acute fracture. 2: Osteochondral defect medial aspect of the talar dome.
--- NOTE | ~2022-07-29 | XR_ITS ---
XR knee RT min 4V 07/29/2022 06:21 Indication: Right knee pain Procedure: 4 views right knee Comparison: No prior studies for comparison. Findings: There is mild tricompartment osteoarthritis of the right knee. No fracture or traumatic mal alignment. No significant joint effusion. No radiopaque foreign bodies. Impression: 1: Mild osteoarthritis of the right knee. Reviewed, dictated and finalized at location A. Impression: 1: Mild osteoarthritis of the right knee.
[2022-07-29 05:10] VITALS: BP 183/101; PULSE 75; RESP 18; TEMP 37; O2SAT 95
--- NOTE | 2022-07-29 05:20 | ED.LOWEXIN ---
HPI - Extremity Injury (Lower) General Chief Complaint: Extremity Injury, Lower Stated Complaint: right knee and ankle pain s/p fall Time Seen by Provider: 07/29/22 05:17 History of Present Illness HPI Narrative: This is a 72-year-old female with past medical history of hypertension, hypothyroidism, brought in by EMS for right ankle and right knee pain after a fall. She states earlier this evening she was walking back from an, when she slipped in the grass with immediate right ankle and knee pain, both described as sharp, 8/10 and not radiating. She states she also struck her head on a car bumper without LOC. She has no other complaints today. Related Data Home Medications Medication Instructions Recorded Confirmed albuterol sulfate 90 mcg/actuation 2 puff inhalation Q4H PRN 06/06/20 01/31/22 aerosol inhaler Shortness Of Breath amlodipine 5 mg tablet 5 mg PO DAILY 06/06/20 01/31/22 fluoxetine 10 mg capsule 10 mg PO DAILY 06/06/20 01/31/22 fluticasone furoate 50 1 mcg inhalation DAILY 06/06/20 01/31/22 mcg/actuation blister powder for inhalation hydralazine 50 mg tablet 50 mg PO TID 06/06/20 01/31/22 metformin 1,000 mg tablet 1,000 mg PO BID 06/06/20 01/31/22 oxybutynin chloride 5 mg tablet 10 mg PO DAILY 06/06/20 01/31/22 pravastatin 40 mg tablet 40 mg PO DAILY 06/06/20 01/31/22 atenolol 50 mg tablet 50 mg PO TID 01/31/21 01/31/22 buspirone 15 mg tablet 15 mg PO BID 01/31/21 01/31/22 levothyroxine 25 mcg tablet 25 mcg PO DAILY 01/31/21 06/21/21 mecobalamin (vitamin B12) 1,000 1,000 mcg PO DAILY 01/31/21 01/31/22 mcg chewable tablet trazodone 100 mg tablet 200 mg PO QHS PRN 01/31/21 01/31/22 Allergies Allergy/AdvReac Type Severity Reaction Status Date / Time aspirin Allergy Unknown Unknown Verified 07/29/22 05:18 erythromycin base Allergy Vomiting Verified 07/29/22 05:18 [From Erythrocin] Review of Systems Review of Systems: CONSTITUTIONAL: Denies fever, chills, or sweats. CARDIOVASCULAR: Denies chest pain, palpitations, or edema. RESPIRATORY: Denies cough or dyspnea. GASTROINTESTINAL: Denies abdominal pain, nausea, vomiting, or diarrhea. GENITOURINARY: Denies dysuria or hematuria. SKIN: Denies rash or itching. MUSCULOSKELETAL: Right knee and ankle pain denies back pain, or myalgia. NEUROLOGIC: Denies headache, numbness, dizziness, or weakness. PSYCHIATRIC: Denies anxiety or depression. [facility] Past Medical History Medical History (Updated 07/29/22 @ 05:25 by Jas Franks MD) Anxiety Bipolar II disorder Chronic anemia Essential hypertension Fracture Including fractures of the pelvis, right wrist, foot, and ankle. Gastroesophageal reflux disease Hiatal hernia History of deep venous thrombosis Hyperlipemia Hypothyroidism Irritable bowel syndrome with constipation Metabolic syndrome Mixed anxiety and depressive disorder Multiple nodules of lung Obese Recurrent urinary tract infection Schizophrenia Type 2 diabetes mellitus Hemoglobin A1c was 6.8% in September 2019. Surgical History Surgical History History of section History of tubal ligation Family History Family History Other Diabetes mellitus Family history of alcoholism Family history of arthritis Family history of blood dyscrasia Family history of malignant neoplasm Family history of mental disorder Hypertension Social History Social History Social History: The patient is a resident of [facility]. Lifelong nonsmoker. No alcohol or illicit substance use. Her daughter Jing Marinelli is her healthcare power of corporate associate attorney and she wishes to be a full code. Alcohol intake: never Substance use: never Gender identity (if verbalized by the patient): Female Spiritual care concerns: No Exam Narrative: GENERAL: Well-appearing, well-nour
[2022-07-29] MEDS: oxyCODONE/ACETAMINOPHEN (*CRX) 5-325 MG TABLET 1 TABLET PO (05:29)
[2022-07-29] MEDS: hydrALAZINE HCL 50 MG TABLET PO (05:30)
== END 2022-07-29 07:19 ==
PROVIDERS: Emergency Provider Preventive Medicine Aerospace Medicine; PCP Internal Medicine
DX: S99.911A Unspecified injury of right ankle, initial encounter (principal); S89.91XA Unspecified injury of right lower leg, initial encounter; I10 Essential (primary) hypertension; E78.5 Hyperlipidemia, unspecified; E88.81 Metabolic syndrome and other insulin resistance; E11.9 Type 2 diabetes mellitus without complications; E03.9 Hypothyroidism, unspecified; K58.1 Irritable bowel syndrome with constipation; K21.9 Gastro-esophageal reflux disease without esophagitis; F41.8 Other specified anxiety disorders; F20.9 Schizophrenia, unspecified; F31.9 Bipolar disorder, unspecified; Z86.718 Personal history of other venous thrombosis and embolism; Z79.84 Long term (current) use of oral hypoglycemic drugs; Z87.440 Personal history of urinary (tract) infections; M17.31 Unilateral post-traumatic osteoarthritis, right knee; W01.0XXA Fall on same level from slipping, tripping and stumbling without subsequent striking against object, initial encounter
CPT/HCPCS: 70450; 73564; 73610; 99284; A9270

== ENCOUNTER 2023-03-11 19:13 | Inpatient (IN) | payer OTHER, SELFPAY ==
[2023-03-11] VITALS (16 sets, daily range): BP systolic 167–190; BP diastolic 88–107; PULSE 74–82; RESP 15–26; TEMP 36.9–37.3; O2SAT 88–97; BMI 37.6
--- NOTE | ~2023-03-11 | XR_ITS ---
XR chest 1V portable 03/13/2023 13:57 Indication: CHF. Shortness of breath. Procedure: AP portable chest Comparison: Comparison to multiple prior studies sequentially, with oldest reviewed study dated 07/28/2019. Findings: Large hiatal hernia. Heart size normal. No focal air space disease, pulmonary edema, pleura l effusion or suspected pneumothorax. No acute osseous abnormality. Impression: 1: No acute cardiopulmonary disease. 2: Large hiatal hernia. Reviewed, dictated and finalized at location B. Impression: 1: No acute cardiopulmonary disease. 2: Large hiatal hernia.
--- NOTE | ~2023-03-11 | XR_ITS ---
EXAMINATION: XR chest 1V portable Exam Date/Time: 03/11/2023 19:36 CDT HISTORY: dyspnea Comparison: 10/19/2020. RESULT: Lines, tubes, and devices: None. Lungs and pleura: Diffuse reticular opacities and Wm B lines. No effusion or focal consolidation . Mid right and bibasilar scar. Cardiomediastinal silhouette: Stable. Large hiatal hernia Other: No acute osseous or upper abdominal finding. IMPRESSION: Mild interstitial pulmonary edema. Reviewed, dictated and finalized at location K.
--- NOTE | 2023-03-11 19:23 | ECG_ITS ---
Measurements Intervals [place] Rate: 78 P: 74 GA: 177 QRS: 13 QRSD: 79 T: 44 QT: 401 QTc: 457 Interpretive Statements SINUS RHYTHM BASELINE WANDER- V1 NORMAL ECG COMPARED TO ECG 10/17/2020 14:16:55 NO SIGNIFICANT CHANGES Electronically Signed On 03-11-2023 21:37:09 CDT by Rio Gannon D.O.
--- NOTE | 2023-03-11 19:39 | ED.GENADULT ---
HPI - General Adult General Chief complaint: Shortness of Breath/Dyspnea Stated complaint: SOB, LOW O2 SATS History of Present Illness HPI narrative: This is a 72-year-old female from [facility] presenting ED for a low oxygen reading. Her oxygen levels at the [place] was found to be 82%. Patient is wearing bright blue nail Lithuanian. The patient is denying fevers chills chest pain difficulty breathing abdominal pain. patient denies history of heart failure Related Data Home Medications Medication Instructions Recorded Confirmed albuterol sulfate 90 mcg/actuation 2 puff inhalation Q4H PRN 06/06/20 01/31/22 aerosol inhaler Shortness Of Breath amlodipine 5 mg tablet 5 mg PO DAILY 06/06/20 01/31/22 fluoxetine 10 mg capsule 10 mg PO DAILY 06/06/20 01/31/22 fluticasone furoate 50 1 mcg inhalation DAILY 06/06/20 01/31/22 mcg/actuation blister powder for inhalation hydralazine 50 mg tablet 50 mg PO TID 06/06/20 01/31/22 metformin 1,000 mg tablet 1,000 mg PO BID 06/06/20 01/31/22 oxybutynin chloride 5 mg tablet 10 mg PO DAILY 06/06/20 01/31/22 pravastatin 40 mg tablet 40 mg PO DAILY 06/06/20 01/31/22 atenolol 50 mg tablet 50 mg PO TID 01/31/21 01/31/22 buspirone 15 mg tablet 15 mg PO BID 01/31/21 01/31/22 levothyroxine 25 mcg tablet 25 mcg PO DAILY 01/31/21 06/21/21 mecobalamin (vitamin B12) 1,000 1,000 mcg PO DAILY 01/31/21 01/31/22 mcg chewable tablet trazodone 100 mg tablet 200 mg PO QHS PRN 01/31/21 01/31/22 Allergies Allergy/AdvReac Type Severity Reaction Status Date / Time aspirin Allergy Unknown Unknown Verified 03/11/23 20:13 erythromycin base Allergy Vomiting Verified 03/11/23 20:13 [From Erythrocin] [facility] Past Medical History Medical History Anxiety Bipolar II disorder Chronic anemia Effusion of knee joint right Essential hypertension Fracture Including fractures of the pelvis, right wrist, foot, and ankle. Gastroesophageal reflux disease Hiatal hernia History of deep venous thrombosis Hyperlipemia Hypothyroidism Irritable bowel syndrome with constipation Metabolic syndrome Mixed anxiety and depressive disorder Multiple nodules of lung Obese Recurrent urinary tract infection Right knee DJD Right knee pain Schizophrenia Type 2 diabetes mellitus Hemoglobin A1c was 6.8% in September 2019. Surgical History Surgical History History of section History of tubal ligation Family History Family History Other Diabetes mellitus Family history of alcoholism Family history of arthritis Family history of blood dyscrasia Family history of malignant neoplasm Family history of mental disorder Hypertension Social History Social History Social History: The patient is a resident of [facility]. Lifelong nonsmoker. No alcohol or illicit substance use. Her daughter Jing Marinelli is her healthcare power of estate planning attorney and she wishes to be a full code. Smoking status: Never smoker Alcohol intake: never Substance use: never Gender identity (if verbalized by the patient): Female Spiritual care concerns: No Exam Narrative: APPEARANCE: No apparent distress. Head: atraumatic. EYES: EOMI, NOSE: Atraumatic NECK: Trachea midline RESPIRATORY: No increased rate of breathing , bibasilar crackles, CARDIOVASCULAR: RRR, +2 pitting edema of the lower extremities ABDOMINAL: Non-distended MUSCULOSKELETAl: No obvious deformities NEURO: Alert. Moving 4/4 extremities SKIN:: Warm, dry. Normal color PSYCHIATRIC: Normal affect Course Vital Signs Vital signs: Vital Signs Temperature 98.4 F 03/11/23 19:45 Pulse Rate 82 03/11/23 19:45 Respiratory Rate 26 H 03/11/23 19:45 Blood Pressure 190/88 H 03/11/23 19:45 Pulse Oximetry 91 03/11/23 19:45 Oxyge
[2023-03-11 19:56] LABS: Basophils Absolute Auto 0.1 K/mm3 (0.0-0.1); Basophils Percent Auto 0.5 % (0.2-1.2); Eosinophils Absolute Auto 0.1 K/mm3 (0-0.3); Eosinophils Percent Auto 0.6 % (0-4.4); Hemoglobin 12.7 g/dL (12.0-15.0); Immature Granulocyte Percent A 0.8 % (0-0.5); Lymphocytes Absolute Auto 1.25 K/mm3 (0.9-3.2); Lymphocytes Percent Auto 9.7 % (18.3-44.2); Mean Corpuscular HGB Conc 34.3 g/dl (32-36); Mean Corpuscular Hemoglobin 30.8 pg (26-34); Mean Corpuscular Volume 89.8 fl (80-100); Monocytes Percent Auto 7.9 % (2.6-8.5); Neutrophils Absolute Auto 10.3 K/mm3 (1.3-6.7); Neutrophils Percent Auto 80.5 % (45.5-73.1); Platelet Count Result 341 k/mm3 (150-375); Red Blood Count 4.12 M/mm3 (4.2-5.4); Red Cell Distribution Width 13.8 % (11.5-14.5); White Blood Count 12.8 K/mm3 (4.5-10.0)
[2023-03-11 20:09] LABS: Alanine Aminotransferase 38 U/L (6-35); Albumin Level 4.5 g/dL (3.5-5.1); Alkaline Phosphatase 100 U/L (38-126); Anion Gap 9 mmol/L (8-16); Aspartate Amino Transferase 37 U/L (14-36); Bilirubin,Total 0.5 mg/dL (0.2-1.3); Blood Urea Nitrogen 14 mg/dL (7-17); Calcium 8.9 mg/dL (8.4-10.2); Carbon Dioxide 26 mmol/L (22-30); Chloride 97 mmol/L (98-107); Estimated CRCL calculation 52 ml/min; Estimated Glomerular Filt Rate > 60; Glucose 121 mg/dL (65-110); Magnesium 1.8 mg/dL (1.6-2.3); Sodium 132 mmol/L (137-145)
[2023-03-11 20:17] LABS: NT Pro B Type Natriuretic Pept 2550 pg/mL (19.9-100); Troponin I < 0.012 ng/mL (0.000-0.034)
--- NOTE | 2023-03-11 20:33 | PC.NURSE ---
EDP aware of oxygen saturation. Respiratory contacted.
[2023-03-11 20:40] LABS: Influenza A QL RT-PCR Negative (Negative); Influenza B QL RT-PCR Negative (Negative); RSV RNA, RT-PCR Negative (Negative); SARS-CoV-2 RNA PCR Negative (Negative)
[2023-03-11] MEDS: FUROSEMIDE INJ 40 MG/4 ML VIAL IV PUSH (21:11)
[2023-03-11] MEDS: CLINDAMYCIN HCL 150 MG CAP 450 MG PO (23:13)
--- NOTE | 2023-03-11 23:36 | ADMGEN ---
This patient, Marcela Rayo, was admitted to Medical Room 242-01. Patient/family oriented to hospital policies and general routines including ID bracelet, bed and alarms, visiting hours, pain management, procedures, bathroom and other care routines, personal items, smoking policy, room service/diet, and visiting hours. Information on how to activate the Rapid Response Team has been discussed. Patient/Family are encouraged to report perceived risks to care and to ask questions if they do not understand what they are told or what they should do.
[2023-03-12] VITALS (12 sets, daily range): BP systolic 150–182; BP diastolic 63–85; PULSE 67–97; RESP 14–18; TEMP 36.1–37; O2SAT 91–98
--- NOTE | 2023-03-12 | ECHO_ITS ---
Patient Info Name: Marcela Rayo Age: 72 years : 1950 Gender: Female Ht: 60 in Wt: 192 lbs BSA: 1.97 m2 HR: 70 bpm BP: 165 / 83 mmHg Heart Rhythm: Sinus Rhythm Technical Quality: Fair Exam Date: 03/12/2023 3:06 PM Exam Location: [facility] Pulmonary Patient Status: Outpatient Admit Date: 03/11/2023 Staff Ordering Physician: Cirilo Awad MD Melter Operator: Juju Mills RDCS Attending Provider: Cirilo Awad MD Referring Physician: Delmi LI; Exam Type: CA echo doppler color flow Study Info Indications - chf Complete two-dimensional, color flow and Doppler transthoracic echocardiogram is performed. Summary 1. Complete two-dimensional, color flow and Doppler transthoracic echocardiogram is performed. 2. Left ventricular chamber dimension is normal. 3. Left ventricular systolic function is normal, estimated at 60-65%. 4. There is mildly increased left ventricular wall thickness. 5. The left ventricular diastolic function is grade I diastolic dysfunction. 6. Right ventricular systolic function is normal. 7. Left atrial chamber dimension is moderately enlarged. 8. There is mild mitral valve regurgitation. 9. There is mild tricuspid valve regurgitation. 10. There is trivial pericardial effusion. Left Ventricle Left ventricular chamber dimension is normal. Left ventricular systolic function is normal, estimated at 60-65%. There is mildly increased left ventricular wall thickness. The left ventricular diastolic function is grade I diastolic dysfunction. Right Ventricle Right ventricular chamber dimension is normal. Right ventricular systolic function is normal. Left Atria Left atrial chamber dimension is moderately enlarged. Right Atria Right atrial chamber dimension is normal. Atrial Septum Intact interatrial septum visualized by color flow imaging. Aortic Valve The aortic valve is probable trileaflet. There is no aortic valve stenosis. There is no aortic valve regurgitation. Pulmonic Valve The pulmonic valve is not well visualized. Mitral Valve There is mild mitral valve regurgitation. Tricuspid Valve There is mild tricuspid valve regurgitation. Pericardium/Pleural There is trivial pericardial effusion. Inferior Vena Cava Normal inferior vena cava with >50% collapse upon inspiration consistent with normal right atrial pressure, 3 mmHg. Aorta The aortic root size at the sinus of Valsalva is normal. Left Ventricular Outflow Tract Name Value Normal LVOT 2D LVOT Diameter 2.0 cm LVOT Doppler LVOT Peak Gradient 3 mmHg LVOT Mean Gradient 2 mmHg LVOT VTI 19 cm LVOT VTI/AV VTI Ratio 0.8 LVOT Stroke Volume 59 ml LVOT CO 4.0 l/min LVOT CI 2.0 l/min/m2 Pulmonic Valve Name Value Normal RVOT Doppler
--- NOTE | 2023-03-12 01:24 | PM.IMHP ---
H&P: HPI History of Present Illness Date/Time: 03/12/23 01:24 Chief Complaint: low oxygen saturation Narrative: This is a 72-year-old female with past medical history significant for morbid obesity, obstructive sleep apnea, on CPAP at home, hypertension, type diabetes mellitus, congestive heart failure, bipolar disorder, generalized anxiety disorder, resides at a [facility]. Patient was brought to the emergency room for evaluation due to pulse ox having low readings. At the time of my visit patient denied any discomfort or shortness of breath. Denies any cough, sputum production, nausea, vomiting, abdominal pain, diarrhea, leg swelling. Preliminary workup was significant for brain atretic peptide of 2550, tested and negative for COVID-19, influenza type A, influenza type B and RSV, a chest x-ray was reported as: EXAMINATION:? XR chest 1V portable Exam Date/Time:? 03/11/2023 19:36 CDT HISTORY: dyspnea ? Comparison:? 10/19/2020. RESULT: Lines, tubes, and devices:? None. Lungs and pleura:? Diffuse reticular opacities and Wm B lines. No effusion or focal consolidation. Mid right and bibasilar scar. Cardiomediastinal silhouette:? Stable. Large hiatal hernia Other:? No acute osseous or upper abdominal finding. ? IMPRESSION: Mild interstitial pulmonary edema. Review of Systems Review of Systems: low reading on pulse oximetry Constitutional: Constitutional: Denies chills, Denies fatigue, Denies fever(s), Denies malaise, Denies night sweats and Denies poor appetite Eyes: Eyes: Denies change in vision ENT: Denies dysphagia and Denies odynophagia Cardiovascular: Cardiovascular: Denies chest pain, Denies leg edema, Denies radiating jaw, neck or arm pain, Denies palpitations and Denies dyspnea Respiratory: Respiratory: Denies chest congestion, Denies cough and Denies excessive phlegm production Gastrointestinal: Gastrointestinal: Denies abdominal pain, Denies dyspepsia, Denies heartburn, Denies diarrhea, Denies nausea and Denies vomiting Genitourinary: Genitourinary: Denies dysuria Musculoskeletal: Musculoskeletal: Denies joint swelling and Denies limited range of motion Integumentary/Breasts: Skin/Breast: Denies rash Neurologic: Denies focal weakness and Denies Sensory deficit (Neuro) Psychiatric: Psychiatric: Reports no additional psychiatric complaints and Reports as per HPI Endocrine: Endocrine: Denies cold intolerance, Denies flushing, Denies heat intolerance, Denies polyphagia, Denies polydipsia and Denies palpitations Hematologic/Lymphatic: Hematologic/Lymphatic: Reports no additional hematologic/lymphatic complaints and Reports as per HPI Allergic/Immunologic: Allergic/Immunologic: Reports no additional allergic/immunologic complaints and Reports as per HPI PMFSH Past Medical History Medical History Anxiety Bipolar II disorder Chronic anemia Effusion of knee joint right Essential hypertension Fracture Including fractures of the pelvis, right wrist, foot, and ankle. Gastroesophageal reflux disease Hiatal hernia History of deep venous thrombosis Hyperlipemia Hypothyroidism Irritable bowel syndrome with constipation Metabolic syndrome Mixed anxiety and depressive disorder Multiple nodules of lung Obese Recurrent urinary tract infection Right knee DJD Right knee pain Schizophrenia Type 2 diabetes mellitus Hemoglobin A1c was 6.8% in September 2019. Surgical History Surgical History History of section History of tubal ligation Family History Family History Other Diabetes mellitus Family history of alcoholism Family history of arthritis Family history of blood dyscrasia Family history of malignant neoplasm Family history of mental disorder Hypertension Social History Social History (Review
[2023-03-12] MEDS: CLINDAMYCIN HCL 150 MG CAP 450 MG PO ×3 (06:04→20:16)
[2023-03-12] MEDS: LEVOTHYROXINE SODIUM 25 MCG TABLET PO (06:05)
[2023-03-12] MEDS: atenoloL 50 MG TABLET PO ×3 (06:05→20:15)
[2023-03-12] MEDS: HYDROcodone/acetaminophen (*CRX) 5-325 MG TABLET 1 TAB PO (06:07)
[2023-03-12 08:39] LABS: Glucose Point of Care 189 mg/dl (65-105)
[2023-03-12 09:00] LABS: Basophils Percent Auto 0.3 % (0.2-1.2); Eosinophils Percent Auto 0.4 % (0-4.4); Hematocrit 35.3 % (37.0-47.0); Hemoglobin 12.1 g/dL (12.0-15.0); Immature Granulocyte Absolute 0.04 K/mm3 (0.00-0.031); Immature Granulocyte Percent A 0.4 % (0-0.5); Lymphocytes Absolute Auto 1.07 K/mm3 (0.9-3.2); Mean Corpuscular HGB Conc 34.3 g/dl (32-36); Mean Corpuscular Hemoglobin 30.8 pg (26-34); Mean Corpuscular Volume 89.8 fl (80-100); Monocytes Absolute Auto 0.7 K/mm3 (0.1-0.6); Monocytes Percent Auto 8.3 % (2.6-8.5); Neutrophils Percent Auto 78.6 % (45.5-73.1); Platelet Count Result 288 k/mm3 (150-375); Red Blood Count 3.93 M/mm3 (4.2-5.4); Red Cell Distribution Width 13.6 % (11.5-14.5); White Blood Count 8.9 K/mm3 (4.5-10.0)
[2023-03-12 09:09] LABS: Alanine Aminotransferase 32 U/L (6-35); Albumin Level 4.1 g/dL (3.5-5.1); Alkaline Phosphatase 87 U/L (38-126); Anion Gap 11 mmol/L (8-16); Aspartate Amino Transferase 33 U/L (14-36); Bilirubin,Total 0.6 mg/dL (0.2-1.3); Blood Urea Nitrogen 12 mg/dL (7-17); Calcium 8.3 mg/dL (8.4-10.2); Carbon Dioxide 27 mmol/L (22-30); Chloride 95 mmol/L (98-107); Estimated CRCL calculation 50 ml/min; Estimated Glomerular Filt Rate > 60; Glucose 179 mg/dL (65-110); Potassium 3.2 mmol/L (3.4-5.0); Sodium 133 mmol/L (137-145)
[2023-03-12] MEDS: hydrALAZINE HCL 50 MG TABLET PO ×3 (09:49→18:32)
[2023-03-12] MEDS: busPIRone HCL 5 MG TABLET 15 MG PO ×2 (09:50→18:31)
[2023-03-12] MEDS: FAMOTIDINE 20 MG TABLET 40 MG PO ×2 (09:50→18:31)
[2023-03-12] MEDS: FUROSEMIDE INJ 40 MG/4 ML VIAL IV PUSH ×2 (09:50→18:31)
[2023-03-12] MEDS: ENOXAPARIN 40 MG/0.4 ML SYRINGE SUB-Q (09:51)
[2023-03-12] MEDS: CYANOCOBALAMIN 1,000 MCG TABLET 1000 MCG PO (09:52)
[2023-03-12] MEDS: FLUTICASONE PROPIONATE 0.05% NA SPR 16 GM BTL (*BKC) 2 SPRAY NASAL (09:52)
[2023-03-12] MEDS: DOCUSATE SODIUM 100 MG CAPSULE PO (09:52)
[2023-03-12] MEDS: oxyBUTYnin CHLORIDE 5 MG TABLET 10 MG PO (09:52)
[2023-03-12] MEDS: lisinopriL 10 MG TABLET PO (09:52)
[2023-03-12] MEDS: amLODIPine BESYLATE 5 MG TABLET PO (09:52)
[2023-03-12] MEDS: LACTULOSE 20 GM/30 ML UDC PO (09:53)
--- NOTE | 2023-03-12 12:01 | PM.IMPN ---
Progress Note: A&P Assessment and Plan (1) CHF (congestive heart failure): Code(s): I50.9 - Heart failure, unspecified Status: Acute Assessment and Plan: Patient presented with increased shortness of breath. Chest x-ray revealing Wm B lines and pulmonary edema. Patient requiring oxygen supplementation of 2L. Ween O2 to maintain >90%. 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 She was evaluated and found to have erythema and induration with drainage and her gluteal cleft POC ultrasound did not reveal any fluid collection Patient started on clindamycin 450 mg p.o. q.8 hours. Starting on 03/12/2023. Plan Patient with a past medical history of hypertension, anemia, GERD, neuropathy, chronic pain, schizophrenia, bipolar 2 disorder, IBS, hypothyroidism, B12 deficiency, hyperlipidemia and spastic bladder. Continue home medications. Time Spent With Patient Time with patient: Greater than 35 minutes Subjective Date/time seen: 03/12/23 12:01 Interval history: Patient lying in bed and is skittish to talk to me 1st but soon opens up. Patient is still requiring oxygen and states that she continues to have shortness of breath although it has improved since arrival. She denies lower extremity edema and cough. No body aches or chills and no active signs of infection at this time. Consider repeat chest x-ray in a day or 2 if patient's shortness of breath does not continue to improve. Review of Systems Review of Systems: All systems reviewed & are unremarkable except as noted in HPI and below Exam Narrative: GENERAL: Comfortable, no acute distress HENMT: moist mucous membranes EYES: EOM intact b/l NECK: no lymphadenopathy RESPIRATORY: Bibasilar crackles CARDIO: RRR GI: soft, nontender, bowel sounds present SKIN: no rashes EXTREMITIES: no edema, redness or tenderness Objective Data Vital Signs Vital Signs: Vital Signs - 24 hr 03/11/23 19:45 03/11/23 20:14 03/11/23 20:33 Temperature 98.4 F Pulse Rate 82 82 78 Respiratory Rate 26 H 16 Blood Pressure 190/88 H Pulse Oximetry 91 88 L Oxygen Delivery Room Air Oxygen Flow Rate 03/11/23 21:19 03/11/23 21:21 03/11/23 21:22 Temperature Pulse Rate 77 81 81 Respiratory Rate 15 19 21 H Blood Pressure 169/93 H Pulse Oximetry 96 95 96 Oxygen Delivery Oxygen Flow Rate 03/11/23 21:32 03/11/23 21:45 03/11/23 22:01 Temperature Pulse Rate 77 74 Respiratory Rate 21 H 24 H Blood Pressure 174/107 H Pulse Oximetry 91 97 Oxygen Delivery Oxygen Flow Rate 03/11/23 22:25 03/11/23 22:30 03/11/23 22:48 Temperature Pulse Rate 79 Respiratory Rate 22 H Blood Pressure Pulse Oximetry 90 96 Oxygen Delivery Oxygen Flow Rate 03/11/23 23:00 03/11/23 23:42 03/11/23 23:28 Temperature Pulse Rate 78 Respiratory Rate 16 16 Blood Pressure 176/94 H Pulse Oximetry 94 95 95 Oxygen De
[2023-03-12 12:26] LABS: Glucose Point of Care 199 mg/dl (65-105)
[2023-03-12] MEDS: SILVERGEL (ELTA) 45 ML 1 APPLIC TOPICAL (12:56)
[2023-03-12 16:14] LABS: Glucose Point of Care 127 mg/dl (65-105)
[2023-03-12] MEDS: POTASSIUM CHLORIDE 20 MEQ PACKET (FOR LIQUID) 40 MEQ PO (18:35)
[2023-03-12] MEDS: INSULIN ASPART (*BKC) 100 UNITS/ML SUB-Q (18:40)
[2023-03-12] MEDS: GABAPENTIN 100 MG CAPSULE PO (20:12)
[2023-03-12] MEDS: FLUoxetine HCL 10 MG CAPSULE 30 MG PO (20:13)
[2023-03-12] MEDS: traZODone HCL 50 MG TABLET 200 MG PO (20:13)
[2023-03-12] MEDS: PRAVASTATIN SODIUM 20 MG TABLET 40 MG PO (20:13)
[2023-03-12 20:25] LABS: Glucose Point of Care 131 mg/dl (65-105)
[2023-03-13] VITALS (9 sets, daily range): BP systolic 102–150; BP diastolic 58–92; PULSE 62–104; RESP 16–18; TEMP 36.2–36.8; O2SAT 93–97
[2023-03-13] MEDS: CLINDAMYCIN HCL 150 MG CAP 450 MG PO ×3 (05:13→21:02)
[2023-03-13] MEDS: atenoloL 50 MG TABLET PO ×3 (05:14→21:02)
[2023-03-13] MEDS: LEVOTHYROXINE SODIUM 25 MCG TABLET PO (05:14)
[2023-03-13 05:51] LABS: Basophils Percent Auto 0.4 % (0.2-1.2); Eosinophils Absolute Auto 0.2 K/mm3 (0-0.3); Hematocrit 37.6 % (37.0-47.0); Hemoglobin 12.7 g/dL (12.0-15.0); Immature Granulocyte Absolute 0.04 K/mm3 (0.00-0.031); Immature Granulocyte Percent A 0.5 % (0-0.5); Lymphocytes Absolute Auto 1.53 K/mm3 (0.9-3.2); Lymphocytes Percent Auto 19.3 % (18.3-44.2); Mean Corpuscular HGB Conc 33.8 g/dl (32-36); Mean Corpuscular Hemoglobin 30.8 pg (26-34); Mean Platelet Volume 9.1 fl (7.4-10.4); Monocytes Percent Auto 12.4 % (2.6-8.5); Neutrophils Absolute Auto 5.2 K/mm3 (1.3-6.7); Neutrophils Percent Auto 65.4 % (45.5-73.1); Platelet Count Result 307 k/mm3 (150-375); Red Blood Count 4.13 M/mm3 (4.2-5.4); Red Cell Distribution Width 13.9 % (11.5-14.5); White Blood Count 7.9 K/mm3 (4.5-10.0)
[2023-03-13 06:10] LABS: Alanine Aminotransferase 29 U/L (6-35); Albumin Level 3.9 g/dL (3.5-5.1); Alkaline Phosphatase 87 U/L (38-126); Anion Gap 7 mmol/L (8-16); Aspartate Amino Transferase 29 U/L (14-36); Bilirubin,Total 0.5 mg/dL (0.2-1.3); Blood Urea Nitrogen 16 mg/dL (7-17); Calcium 8.3 mg/dL (8.4-10.2); Carbon Dioxide 30 mmol/L (22-30); Chloride 95 mmol/L (98-107); Estimated CRCL calculation 38 ml/min; Estimated Glomerular Filt Rate 44; Glucose 109 mg/dL (65-110); Potassium 3.7 mmol/L (3.4-5.0); Sodium 132 mmol/L (137-145)
[2023-03-13] MEDS: FLUTICASONE PROPIONATE 0.05% NA SPR 16 GM BTL (*BKC) 2 SPRAY NASAL (08:26)
[2023-03-13] MEDS: ENOXAPARIN 40 MG/0.4 ML SYRINGE SUB-Q (08:26)
[2023-03-13] MEDS: FAMOTIDINE 20 MG TABLET 40 MG PO ×2 (08:26→17:10)
[2023-03-13] MEDS: oxyBUTYnin CHLORIDE 5 MG TABLET 10 MG PO (08:26)
[2023-03-13] MEDS: FUROSEMIDE INJ 40 MG/4 ML VIAL IV PUSH ×2 (08:26→17:10)
[2023-03-13] MEDS: CYANOCOBALAMIN 1,000 MCG TABLET 1000 MCG PO (08:27)
[2023-03-13] MEDS: busPIRone HCL 5 MG TABLET 15 MG PO ×2 (08:27→17:10)
[2023-03-13] MEDS: DOCUSATE SODIUM 100 MG CAPSULE PO (08:27)
[2023-03-13] MEDS: amLODIPine BESYLATE 5 MG TABLET PO (08:27)
[2023-03-13] MEDS: LACTULOSE 20 GM/30 ML UDC PO (08:30)
[2023-03-13 08:31] LABS: Glucose Point of Care 125 mg/dl (65-105)
[2023-03-13] MEDS: SILVERGEL (ELTA) 45 ML 1 APPLIC TOPICAL (08:37)
--- NOTE | 2023-03-13 10:08 | P.CDI_ITS ---
CDI Query Clarification Request Documented history of CHF. CHF noted on the assessment and plan. Elevated BNP on 03/11/23 lab work. Patient receiving Lasix. Patient with complaints of shortness of breath. Pulmonary edema noted on the 03/11 chest xray Please specify type and acuity of heart failure if known. * Acute * Chronic * Acute on Chronic * Unknown * Systolic * Diastolic * Combined Systolic and Diastolic * Unknown
[2023-03-13] MEDS: hydrALAZINE HCL 50 MG TABLET PO ×3 (10:09→17:10)
[2023-03-13] MEDS: lisinopriL 20 MG TABLET PO (10:43)
[2023-03-13 12:09] LABS: Glucose Point of Care 104 mg/dl (65-105)
--- NOTE | 2023-03-13 13:23 | PM.IMPN ---
Progress Note: A&P Assessment and Plan (1) CHF (congestive heart failure): Qualifiers: Heart failure type: combined systolic and diastolic Heart failure chronicity: chronic Qualified Code(s): I50.42 - Chronic combined systolic (congestive) and diastolic (congestive) heart failure Code(s): I50.9 - Heart failure, unspecified Status: Acute Assessment and Plan: Patient presented with increased shortness of breath. Chest x-ray revealing Wm B lines and pulmonary edema. Patient requiring oxygen supplementation of 2L. Ween O2 to maintain >90%. IV Lasix 40 mg BID Echocardiogram revealing EF of 55-60%, mildly enlarged left atrial chamber, trivial MR Daily intake and output, Daily weights 03/13 repeat chest x-ray ordered. Echocardiogram with EF of 60 65%, grade 1 diastolic dysfunction, mild LVH, mild valvular disease (2) Acute respiratory failure with hypoxia: Code(s): J96.01 - Acute respiratory failure with hypoxia Status: Acute Assessment and Plan: on supplemental oxygen by nasal cannula continue to monitor pulse oximeter (3) Type 2 diabetes mellitus: Qualifiers: Diabetes mellitus complication status: without complication Diabetes mellitus care home insulin use: with terminal operator use Qualified Code(s): E11.9 - Type 2 diabetes mellitus without complications; Z79.4 - intermediate manager (current) use of insulin Code(s): E11.9 - Type 2 diabetes mellitus without complications Status: Chronic Assessment and Plan: holding metformin insulin sliding scale as needed hypoglycemic protocol initiated (4) Boil of buttock: Code(s): L02.32 - Furuncle of buttock Status: Acute Assessment and Plan: Patient was having pain on her buttock. She was evaluated and found to have erythema and induration with drainage and her gluteal cleft POC ultrasound did not reveal any fluid collection Patient started on clindamycin 450 mg p.o. q.8 hours. Starting on 03/12/2023. Wound care consulted. Plan Patient with a past medical history of hypertension, anemia, GERD, neuropathy, chronic pain, schizophrenia, bipolar 2 disorder, IBS, hypothyroidism, B12 deficiency, hyperlipidemia and spastic bladder. Continue home medications. Subjective Date/time seen: 03/13/23 13:23 Interval history: Patient resting In bed doing well today. Patient shortness of breath at rest has improved although she still short of breath with ambulation. She denies cough chest pain, nausea vomiting. She is still requiring 2 L oxygen. Attempts have been made to wean patient down she has failed to these symptoms dropping into the mid 80s. Plan to repeat chest x-ray today. patient's creatinine did bump up to 1.2 today. If chest x-ray looks improved will wean down on Lasix use. Review of Systems Review of Systems: All systems reviewed & are unremarkable except as noted in HPI and below Exam Narrative: GENERAL: Comfortable, no acute distress HENMT: moist mucous membranes EYES: EOM intact b/l NECK: no lymphadenopathy RESPIRATORY: Clear to auscultation CARDIO: RRR GI: soft, nontender, bowel sounds present SKIN: no rashes EXTREMITIES: no edema, redness or tenderness Objective Data Vital Signs Vital Signs: Vital Signs - 24 hr 03/12/23 13:49 03/12/23 18:45 03/12/23 20:15 Temperature 97 F L Pulse Rate 97 68 70 Respiratory Rate 18 14 Blood Pressure 182/71 H 154/70 H Pulse Oximetry 91 97 Oxygen Delivery Oxygen Flow Rate Fraction of Inspired Oxygen 03/12/23 20:00 03/12/23 22:27 03/12/23 20:00 Temperature 97.5 F L Pulse Rate 67 69 Respiratory Rate 16 16 Blood Pressure 150/66 H Pulse Oximetry 97 94 97 Oxygen Delivery Nasal Cannula Nasal Cannula Oxygen Flow Rate 2 2 Fraction of Inspired Oxygen 28 03/13/23 05:14 03/13/23 06:00 03/13/23 09:53 Temperature 97.2 F L Pulse Rate 62 104 H Respirator
[2023-03-13] MEDS: HYOSCYAMINE SULFATE 0.125 MG TABLET PO (14:51)
[2023-03-13 17:06] LABS: Glucose Point of Care 172 mg/dl (65-105)
[2023-03-13] MEDS: INSULIN ASPART (*BKC) 100 UNITS/ML SUB-Q (17:10)
[2023-03-13] MEDS: FLUoxetine HCL 10 MG CAPSULE 30 MG PO (21:01)
[2023-03-13] MEDS: PRAVASTATIN SODIUM 20 MG TABLET 40 MG PO (21:01)
[2023-03-13] MEDS: traZODone HCL 50 MG TABLET 200 MG PO (21:01)
[2023-03-13] MEDS: GABAPENTIN 100 MG CAPSULE PO (21:02)
[2023-03-14 00:21] LABS: Glucose Point of Care 162 mg/dl (65-105)
[2023-03-14 05:14] VITALS: PULSE 70
[2023-03-14] MEDS: CLINDAMYCIN HCL 150 MG CAP 450 MG PO (05:14)
[2023-03-14] MEDS: atenoloL 50 MG TABLET PO (05:14)
[2023-03-14] MEDS: CALCIUM CARBONATE (TUMS) 500 MG (200 MG ELEMENTAL) PO (05:14)
[2023-03-14 05:20] LABS: Basophils Percent Auto 0.5 % (0.2-1.2); Eosinophils Absolute Auto 0.2 K/mm3 (0-0.3); Eosinophils Percent Auto 2.5 % (0-4.4); Hematocrit 37.9 % (37.0-47.0); Immature Granulocyte Absolute 0.04 K/mm3 (0.00-0.031); Immature Granulocyte Percent A 0.5 % (0-0.5); Lymphocytes Absolute Auto 1.53 K/mm3 (0.9-3.2); Mean Corpuscular HGB Conc 34.3 g/dl (32-36); Mean Corpuscular Hemoglobin 30.7 pg (26-34); Mean Corpuscular Volume 89.4 fl (80-100); Mean Platelet Volume 9.2 fl (7.4-10.4); Monocytes Percent Auto 12.1 % (2.6-8.5); Neutrophils Absolute Auto 5.3 K/mm3 (1.3-6.7); Neutrophils Percent Auto 65.4 % (45.5-73.1); Platelet Count Result 323 k/mm3 (150-375); Red Blood Count 4.24 M/mm3 (4.2-5.4); Red Cell Distribution Width 13.7 % (11.5-14.5)
[2023-03-14 05:40] LABS: Alanine Aminotransferase 28 U/L (6-35); Alkaline Phosphatase 89 U/L (38-126); Anion Gap 10 mmol/L (8-16); Aspartate Amino Transferase 26 U/L (14-36); Bilirubin,Total 0.4 mg/dL (0.2-1.3); Blood Urea Nitrogen 19 mg/dL (7-17); Calcium 8.4 mg/dL (8.4-10.2); Carbon Dioxide 25 mmol/L (22-30); Chloride 95 mmol/L (98-107); Estimated CRCL calculation 36 ml/min; Estimated Glomerular Filt Rate 49; Glucose 113 mg/dL (65-110); Potassium 3.5 mmol/L (3.4-5.0); Sodium 130 mmol/L (137-145)
[2023-03-14 05:41] LABS: NT Pro B Type Natriuretic Pept 604 pg/mL (19.9-100)
[2023-03-14 06:00] VITALS: BP 155/63; PULSE 57; RESP 20; TEMP 36.3; O2SAT 98
[2023-03-14] MEDS: LEVOTHYROXINE SODIUM 25 MCG TABLET PO (06:08)
[2023-03-14] MEDS: ACETAMINOPHEN 500 MG TABLET 1000 MG PO (07:52)
[2023-03-14 08:41] LABS: Glucose Point of Care 125 mg/dl (65-105)
[2023-03-14] MEDS: oxyBUTYnin CHLORIDE 5 MG TABLET 10 MG PO (09:02)
[2023-03-14] MEDS: hydrALAZINE HCL 50 MG TABLET PO (09:02)
[2023-03-14] MEDS: lisinopriL 20 MG TABLET PO (09:02)
[2023-03-14] MEDS: DOCUSATE SODIUM 100 MG CAPSULE PO (09:02)
[2023-03-14] MEDS: amLODIPine BESYLATE 5 MG TABLET PO (09:02)
[2023-03-14] MEDS: CYANOCOBALAMIN 1,000 MCG TABLET 1000 MCG PO (09:02)
[2023-03-14] MEDS: FUROSEMIDE 40 MG TABLET PO (09:02)
[2023-03-14] MEDS: busPIRone HCL 5 MG TABLET 15 MG PO (09:02)
[2023-03-14] MEDS: FLUTICASONE PROPIONATE 0.05% NA SPR 16 GM BTL (*BKC) 2 SPRAY NASAL (09:03)
[2023-03-14] MEDS: FAMOTIDINE 20 MG TABLET 40 MG PO (09:03)
[2023-03-14] MEDS: ENOXAPARIN 40 MG/0.4 ML SYRINGE SUB-Q (09:03)
[2023-03-14] MEDS: LACTULOSE 20 GM/30 ML UDC PO (09:03)
[2023-03-14] MEDS: SILVERGEL (ELTA) 45 ML 1 APPLIC TOPICAL (11:05)
--- NOTE | 2023-03-14 11:49 | PM.DS ---
DS: Admitting Diagnosis Discharge Date 03/14/23 Admitting Diagnosis CHF exacerbation DS: Discharge Diagnosis Discharge Diagnosis (1) CHF (congestive heart failure): Qualifiers: Heart failure chronicity: chronic Heart failure type: combined systolic and diastolic Qualified Code(s): I50.42 - Chronic combined systolic (congestive) and diastolic (congestive) heart failure Code(s): I50.9 - Heart failure, unspecified Status: Acute Assessment and Plan: Patient presented with increased shortness of breath. Chest x-ray revealing Wm B lines and pulmonary edema. Patient requiring oxygen supplementation of 2L and was eventually able to be weaned off oxygen.. IV Lasix 40 mg BID While in the hospital Daily intake and output, Daily weights Repeat chest x-ray revealing no acute cardiopulmonary process and a large hiatal hernia Echocardiogram with EF of 60 65%, grade 1 diastolic dysfunction, mild LVH, mild valvular disease (2) Acute respiratory failure with hypoxia: Code(s): J96.01 - Acute respiratory failure with hypoxia Status: Acute Assessment and Plan: on supplemental oxygen by nasal cannula continue to monitor pulse oximeter (3) Type 2 diabetes mellitus: Qualifiers: Diabetes mellitus retirement insulin use: with senior biostatistician/group leader use Diabetes mellitus complication status: without complication Qualified Code(s): E11.9 - Type 2 diabetes mellitus without complications; Z79.4 - group home (current) use of insulin Code(s): E11.9 - Type 2 diabetes mellitus without complications Status: Chronic Assessment and Plan: holding metformin insulin sliding scale as needed hypoglycemic protocol initiated (4) Boil of buttock: Code(s): L02.32 - Furuncle of buttock Status: Acute Assessment and Plan: Patient was having pain on her buttock. She was evaluated and found to have erythema and induration with drainage and her gluteal cleft POC ultrasound did not reveal any fluid collection Patient started on clindamycin 450 mg p.o. q.8 hours. Starting on 03/12/2023. Wound care consulted. Plan Patient with a past medical history of hypertension, anemia, GERD, neuropathy, chronic pain, schizophrenia, bipolar 2 disorder, IBS, hypothyroidism, B12 deficiency, hyperlipidemia and spastic bladder. Continue home medications. DS: Summary Hospital Course Hospital Course: This is a 72-year-old female with past medical history of EDEN on a CPAP at home, hypertension, diabetes, CHF, bipolar disorder, generalized anxiety disorder that currently lives at assisted living the presented to the ED on 03/12/2023 with chief complaint shortness of breath. Patient did not have a cough, lower extremity edema, abdominal pain nausea or vomiting. Her BNP was elevated at 2550. Patient tested negative for COVID and flu. patient requires supplemental oxygen have 2 L due to having oxygen saturation in the mid 80s on presentation. Patient does not normally wear oxygen at home. Chest x-ray revealing mild interstitial pulmonary edema with Wm B lines. Patient was admitted started on IV Lasix. echocardiogram revealing EF of 55-60% with mildly enlarged right atrial chamber and trivial MR. Patient was able to be weaned off her oxygen and her breath sounds improved. Patient had repeat x-ray on 03/13/2023 revealing no acute cardiopulmonary process. While in the ER patient complained of buttock pain and she was found to have erythema and induration with drainage of her gluteal cleft. Patient was started on clindamycin for her per 10 mg every 8 hours for total of 7 days. Wound care was consulted on the patient. Patient was able to be weaned off oxygen, lung sounds improved, labs and vital signs stabilize and she is medically cleared for discharge. Time Spent with Patient Time attestation: Total time spent providing and/or coordinating discharge serv
[2023-03-14 12:30] LABS: Glucose Point of Care 118 mg/dl (65-105)
== END 2023-03-14 13:45 | DRG 194 ==
LOC: ANHED 21:08 → ANH2MED 23:54
PROVIDERS: Admitting Provider Internal Medicine; Emergency Provider Emergency Medicine; PCP Internal Medicine; Visit Provider Internal Medicine Critical Care Medicine
DX: I11.0 Hypertensive heart disease with heart failure (principal); J96.01 Acute respiratory failure with hypoxia; E66.01 Morbid (severe) obesity due to excess calories; F20.9 Schizophrenia, unspecified; E11.9 Type 2 diabetes mellitus without complications; L02.32 Furuncle of buttock; I50.43 Acute on chronic combined systolic (congestive) and diastolic (congestive) heart failure; E03.9 Hypothyroidism, unspecified; E78.5 Hyperlipidemia, unspecified; K21.9 Gastro-esophageal reflux disease without esophagitis; K44.9 Diaphragmatic hernia without obstruction or gangrene; K58.1 Irritable bowel syndrome with constipation; M17.11 Unilateral primary osteoarthritis, right knee; G47.33 Obstructive sleep apnea (adult) (pediatric); F41.1 Generalized anxiety disorder; F31.9 Bipolar disorder, unspecified; Z20.822 Contact with and (suspected) exposure to COVID-19; Z86.718 Personal history of other venous thrombosis and embolism
CPT/HCPCS: 36415; 71045; 80053; 82948; 83735; 83880; 84484; 85025; 87637; 93005; 93306; 96372; 96374; 97161; 97165; 99285; A9270; G0378; G0379; J1650; J1815; J1940

== ENCOUNTER 2023-04-10 05:48 | Emergency (ER) | payer OTHER, SELFPAY ==
--- NOTE | ~2023-04-10 | CT_ITS ---
CT of the Abdomen and Pelvis: Indication: Abdominal pain Technique: 2.5 mm axial scans were obtained through the abdomen and pelvis following intravenous adm inistration of 100 cc of Omnipaque 350. Dose reduction technique was used on this scan by utilizing a utomated exposure control and iterative reconstruction technique. The dose-length product (DLP) was 8 79.81 mGy-cm. COMPARISON: 07/28/2019 Findings: Scans through the lung bases demonstrate moderate to large hiatal hernia, essentially unch anged. The liver, spleen, pancreas, gallbladder, and adrenal glands are within normal limits. Numerous small bilateral renal cysts are present. No evidence of aortic aneurysm. No lymphadenopathy. There is wall thickening and adjacent inflammatory change of the mid to distal sigmoid colon with und erlying diverticular disease, consistent with acute diverticulitis. No abscess or free air evident. Images through the pelvis were performed. Urinary bladder unremarkable. No adnexal mass seen. No asci isaak. Chronic compression fracture deformities of L1 and L4 present, unchanged. Impression: Acute sigmoid diverticulitis. No abscess or free air. Moderate to large hiatal hernia, unchanged. Knee Stable chronic compression fractures of L1 and L4. Reviewed, dictated and finalized at location . Impression: Acute sigmoid diverticulitis. No abscess or free air. Moderate to large hiatal hernia, unchanged. Knee Stable chronic compression fractures of L1 and L4.
--- NOTE | ~2023-04-10 | XR_ITS ---
Supine and upright views of the abdomen Clinical history: Abdominal pain, constipation Findings: Bowel gas pattern is nonspecific. No evidence for obstruction or free air. No abnormal mass lesion or calcification is seen. L1 compression fracture present. Chronic fracture deformities of th e right superior and inferior pubic rami noted. Impression: Nonspecific bowel gas pattern. Chronic L1 compression fracture and chronic fracture deformities of the right superior and inferior p ubic rami. Reviewed, dictated and finalized at location M. Impression: Nonspecific bowel gas pattern. Chronic L1 compression fracture and chronic fracture deformities of the right s uperior and inferior pubic rami.
[2023-04-10 05:23] VITALS: BP 164/85; PULSE 74; RESP 16; TEMP 36.3; O2SAT 96
--- NOTE | 2023-04-10 05:23 | ED.ABDPAIN ---
HPI - Abdominal Pain General Chief Complaint: Abdominal Pain <Kassy Acevedo MD - Last Filed: 04/10/23 07:22> Stated Complaint: abd pain <Kassy Acevedo MD - Last Filed: 04/10/23 07:22> Time Seen by Provider: 04/10/23 07:45 <Kassy Acevedo MD - Last Filed: 04/10/23 07:22> Source: patient and EMS <Kassy Acevedo MD - Last Filed: 04/10/23 07:22> Mode of arrival: EMS <Kassy Acevedo MD - Last Filed: 04/10/23 07:22> Limitations: no limitations <Kassy Acevedo MD - Last Filed: 04/10/23 07:22> History of Present Illness HPI narrative: The patient is a 72-year-old female with type 2 diabetes mellitus, hypertension, chronic anemia, and bipolar disorder presenting to the emergency department for evaluation of lower abdominal pain. Patient reports a 4-day history of worsening lower abdominal pain as well as dysuria, urinary frequency and urgency. Patient reports of burning sensation with urination. She denies upper abdominal pain, fever, chills, nausea or vomiting. She denies flank pain. Patient denies any recent constipation, states she had normal bowel movements yesterday. Denies diarrhea, black or bloody bowel movements. She denies malodorous urine. No known history of kidney stones. Patient denies any chest pain, cough, shortness of breath. She denies vaginal discharge or bleeding. <Kassy Acevedo MD - Last Filed: 04/10/23 07:22> Related Data Home Medications: Home Medications Medication Instructions Recorded Confirmed albuterol sulfate 90 mcg/actuation 2 puff inhalation Q4H PRN 06/06/20 03/11/23 aerosol inhaler Shortness Of Breath amlodipine 5 mg tablet 5 mg PO DAILY 06/06/20 03/11/23 fluoxetine 10 mg capsule 30 mg PO HS 06/06/20 03/12/23 fluticasone furoate 50 1 mcg inhalation BID 06/06/20 03/12/23 mcg/actuation blister powder for inhalation hydralazine 50 mg tablet 50 mg PO TID 06/06/20 03/12/23 metformin 1,000 mg tablet 1,000 mg PO BID 06/06/20 03/12/23 oxybutynin chloride 5 mg tablet 10 mg PO DAILY 06/06/20 03/12/23 pravastatin 40 mg tablet 40 mg PO HS 06/06/20 03/12/23 atenolol 50 mg tablet 50 mg PO TID 01/31/21 03/11/23 buspirone 15 mg tablet 15 mg PO BID 01/31/21 03/11/23 levothyroxine 25 mcg tablet 25 mcg PO DAILY 01/31/21 03/12/23 mecobalamin (vitamin B12) 1,000 1,000 mcg PO DAILY 01/31/21 03/12/23 mcg chewable tablet trazodone 100 mg tablet 200 mg PO QHS 01/31/21 03/12/23 gabapentin 100 mg capsule 100 mg PO HS 03/11/23 03/12/23 hydrocodone 5 mg-acetaminophen 325 1 tablet PO Q4H PRN Pain (Scale 03/11/23 03/12/23 mg tablet Score 4-6) hydroxyzine pamoate 25 mg capsule 25 mg PO HS PRN Sleep 03/11/23 03/12/23 ibuprofen 800 mg tablet 800 mg PO TID PRN Pain (Scale 03/11/23 03/12/23 Score 7-10) lactulose 10 gram/15 mL oral 30 ml PO BID PRN Constipation 03/11/23 03/11/23 solution (Enulose) lisinopril 10 mg tablet 10 mg PO DAILY 03/11/23 03/12/23 acetaminophen 500 mg tablet 1,000 mg PO Q8H PRN Pain (Scale 03/12/23 03/11/23 Score 1-3) metoclopramide HCl 10 mg tablet 10 mg PO BID 03/12/23 03/12/23 <Kassy Acevedo MD - Last Filed: 04/10/23 07:22> Allergies/Adverse Reactions: Allergies Allergy/AdvReac Type Severity Reaction Status Date / Time aspirin Allergy Unknown Unknown Verified 04/10/23 05:30 erythromycin base Allergy Vomiting Verified 04/10/23 05:30 [From Erythrocin] <Kassy Acevedo MD - Last Filed: 04/10/23 07:22> Review of Systems Review of Systems: CONSTITUTIONAL: Denies fever, chills, or sweats. EYES: Denies visual changes, redness, or discharge. ENT: Denies rhinorrhea, congestion, sore throat, or otalgia. CARDIOVASCULAR: Denies chest pain, palpitations, or edema. RESPIRATORY: Denies cough or dyspnea. GASTROINTESTINAL: Patient reports lower abdominal pain, denies nausea, vomiting or diarrhea GENITOURINARY: She reports dysuria without hematuria, reports urinary frequency and urgency SKIN: Denies rash or itch
[2023-04-10 05:52] LABS: Appearance Urine Clear (Clear); Bacteria Urine None Seen /hpf; Bilirubin Urine Negative (Negative); Blood Urine Negative (Negative); Color Urine Yellow (Yellow); Glucose Urine UA Negative (Negative); Ketones Urine Trace mg/dL (Negative); Leukocyte Esterase Ur 1+ LEU/UL (Negative); Nitrate Urine Negative (Negative); Protein Urine 2+ mg/dL (Negative); RBC Urine 0-2 /hpf (0-2); Specific Grav Ur 1.024 (1.001-1.035); Squamous Epithelial Cell Urine Occasional /hpf (Few)
[2023-04-10 06:00] LABS: Add Urine Microscopic? YES
[2023-04-10] MEDS: SODIUM CHLORIDE 0.9% IV 1,000 ML 999 ML IV CONT (06:19)
[2023-04-10] MEDS: ONDANSETRON INJ 4 MG/2 ML VIAL IV PUSH (06:20)
[2023-04-10] MEDS: MORPHINE SULFATE (*CRX) 4 MG/ML INJ IV PUSH (06:20)
[2023-04-10 06:28] LABS: Basophils Percent Auto 0.2 % (0.2-1.2); Eosinophils Percent Auto 0.2 % (0-4.4); Hematocrit 39.2 % (37.0-47.0); Hemoglobin 13.3 g/dL (12.0-15.0); Immature Granulocyte Absolute 0.04 K/mm3 (0.00-0.031); Immature Granulocyte Percent A 0.3 % (0-0.5); Lymphocytes Absolute Auto 0.87 K/mm3 (0.9-3.2); Lymphocytes Percent Auto 6.9 % (18.3-44.2); Mean Corpuscular HGB Conc 33.9 g/dl (32-36); Mean Corpuscular Hemoglobin 30.4 pg (26-34); Mean Corpuscular Volume 89.7 fl (80-100); Mean Platelet Volume 9.3 fl (7.4-10.4); Monocytes Absolute Auto 1.1 K/mm3 (0.1-0.6); Monocytes Percent Auto 8.9 % (2.6-8.5); Neutrophils Absolute Auto 10.5 K/mm3 (1.3-6.7); Neutrophils Percent Auto 83.5 % (45.5-73.1); Platelet Count Result 298 k/mm3 (150-375); Red Blood Count 4.37 M/mm3 (4.2-5.4); Red Cell Distribution Width 13.3 % (11.5-14.5); White Blood Count 12.5 K/mm3 (4.5-10.0)
[2023-04-10 06:38] LABS: Alanine Aminotransferase 20 U/L (6-35); Albumin Level 4.4 g/dL (3.5-5.1); Alkaline Phosphatase 90 U/L (38-126); Anion Gap 8 mmol/L (8-16); Aspartate Amino Transferase 25 U/L (14-36); Bilirubin,Total 0.5 mg/dL (0.2-1.3); Blood Urea Nitrogen 15 mg/dL (7-17); Calcium 8.8 mg/dL (8.4-10.2); Carbon Dioxide 25 mmol/L (22-30); Chloride 100 mmol/L (98-107); Estimated CRCL calculation 41 ml/min; Estimated Glomerular Filt Rate 40; Glucose 129 mg/dL (65-110); Lipase 121 U/L (23-300); Potassium 3.4 mmol/L (3.4-5.0); Sodium 133 mmol/L (137-145)
[2023-04-10 06:54] VITALS: BP 160/62; PULSE 68; RESP 20; O2SAT 96
== END 2023-04-10 08:24 ==
PROVIDERS: Emergency Medicine; Emergency Provider Emergency Medicine; PCP Internal Medicine
DX: K57.32 Diverticulitis of large intestine without perforation or abscess without bleeding (principal); E11.9 Type 2 diabetes mellitus without complications; I10 Essential (primary) hypertension; E78.5 Hyperlipidemia, unspecified; E88.81 Metabolic syndrome and other insulin resistance; D64.9 Anemia, unspecified; K21.9 Gastro-esophageal reflux disease without esophagitis; K58.1 Irritable bowel syndrome with constipation; M17.11 Unilateral primary osteoarthritis, right knee; F20.9 Schizophrenia, unspecified; F41.8 Other specified anxiety disorders; F31.81 Bipolar II disorder; Z87.440 Personal history of urinary (tract) infections; Z86.718 Personal history of other venous thrombosis and embolism; Z79.84 Long term (current) use of oral hypoglycemic drugs; K44.9 Diaphragmatic hernia without obstruction or gangrene
CPT/HCPCS: 36415; 74018; 74177; 80053; 81001; 83690; 85025; 87086; 96361; 96374; 96375; 99284; J2270; J2405; J7030; Q9967

== ENCOUNTER 2023-04-22 12:29 | Emergency (ER) | payer OTHER, SELFPAY ==
--- NOTE | ~2023-04-22 | CT_ITS ---
EXAMINATION: CT abdomen pelvis w con DATE: 04/22/2023 14:36 INDICATION: Left lower quadrant abdominal pain. Recent diverticulitis. TECHNIQUE: Computed tomography (CT) of the abdomen and pelvis was performed with 100 mL Omnipaque-350 intravenous contrast. Automated exposure control and iterative reconstruction technique were employe d. The dose-length product was 1025.90 mGy-cm. COMPARISON: 04/10/2023 FINDINGS: Again seen is a moderate to large sliding-type hiatal hernia. Tiny posterior layering right pleural e ffusion. Heart size is normal. No pericardial effusion. Liver, gallbladder, spleen, pancreas and righ t adrenal gland are normal. 1 cm left adrenal nodule most likely representing an adenoma. Numerous sm all bilateral renal cysts the largest on the right measuring 1.7 cm. Moderate diverticulosis along th e sigmoid colon. Persistent but decreased wall thickening and surrounding inflammatory stranding at t he mid sigmoid colon consistent with improving diverticulitis. No abscess or free intraperitoneal gas .. Trace amount of likely reactive free fluid in the pelvis. Small bowel and appendix are normal. Todd dder, anteverted uterus and bilateral adnexa are unremarkable. No pathologically enlarged abdominal o r pelvic lymphadenopathy. Severe lumbar and lower thoracic spondylosis with stable appearance of menhaden fishing crew member nagelia L1 and L4 burst fractures. IMPRESSION: 1. Decreased inflammatory changes consistent with improving sigmoid diverticulitis. No abscess or lincoln e intraperitoneal gas. 2. Moderate to large hiatal hernia. Reviewed, dictated and finalized at location B. IMPRESSION: 1. Decreased inflammatory changes consistent with improving sigmoid diverticuli tis. No abscess or free intraperitoneal gas. 2. Moderate to large hiatal hernia.
[2023-04-22 12:34] VITALS: BP 160/111; PULSE 88; RESP 16; TEMP 36.8; O2SAT 94
[2023-04-22 13:38] LABS: Basophils Absolute Auto 0.1 K/mm3 (0.0-0.1); Basophils Percent Auto 0.5 % (0.2-1.2); Eosinophils Absolute Auto 0.1 K/mm3 (0-0.3); Eosinophils Percent Auto 0.5 % (0-4.4); Hematocrit 36.5 % (37.0-47.0); Hemoglobin 12.2 g/dL (12.0-15.0); Immature Granulocyte Absolute 0.05 K/mm3 (0.00-0.031); Immature Granulocyte Percent A 0.5 % (0-0.5); Mean Corpuscular HGB Conc 33.4 g/dl (32-36); Mean Corpuscular Volume 89.7 fl (80-100); Monocytes Absolute Auto 0.6 K/mm3 (0.1-0.6); Monocytes Percent Auto 5.6 % (2.6-8.5); Neutrophils Absolute Auto 8.9 K/mm3 (1.3-6.7); Neutrophils Percent Auto 81.9 % (45.5-73.1); Platelet Count Result 331 k/mm3 (150-375); Red Blood Count 4.07 M/mm3 (4.2-5.4); Red Cell Distribution Width 13.5 % (11.5-14.5); White Blood Count 10.9 K/mm3 (4.5-10.0)
[2023-04-22 13:48] LABS: Alanine Aminotransferase 23 U/L (6-35); Alkaline Phosphatase 84 U/L (38-126); Anion Gap 10 mmol/L (8-16); Aspartate Amino Transferase 26 U/L (14-36); Bilirubin,Total 0.3 mg/dL (0.2-1.3); Blood Urea Nitrogen 11 mg/dL (7-17); Calcium 8.7 mg/dL (8.4-10.2); Carbon Dioxide 24 mmol/L (22-30); Chloride 100 mmol/L (98-107); Estimated CRCL calculation 43 ml/min; Estimated Glomerular Filt Rate 44; Glucose 108 mg/dL (65-110); Lipase 78 U/L (23-300); Potassium 3.7 mmol/L (3.4-5.0); Sodium 134 mmol/L (137-145)
--- NOTE | 2023-04-22 14:12 | ED.ABDPAIN ---
HPI - Abdominal Pain General Chief Complaint: Abdominal Pain Stated Complaint: abdominal pain Time Seen by Provider: 04/22/23 13:56 History of Present Illness HPI narrative: Patient is a 72-year-old female presenting with abdominal pain. Patient states that she was diagnosed with diverticulitis a couple of weeks ago. She was treated with antibiotics and pain pills and improved until 2 days ago when the pain returned. States that she has pain in her left and right lower quadrants as well as the suprapubic area. No dysuria. No vomiting or diarrhea. Denies further complaints. Related Data Home Medications Medication Instructions Recorded Confirmed albuterol sulfate 90 mcg/actuation 2 puff inhalation Q4H PRN 06/06/20 03/11/23 aerosol inhaler Shortness Of Breath amlodipine 5 mg tablet 5 mg PO DAILY 06/06/20 03/11/23 fluoxetine 10 mg capsule 30 mg PO HS 06/06/20 03/12/23 fluticasone furoate 50 1 mcg inhalation BID 06/06/20 03/12/23 mcg/actuation blister powder for inhalation hydralazine 50 mg tablet 50 mg PO TID 06/06/20 03/12/23 metformin 1,000 mg tablet 1,000 mg PO BID 06/06/20 03/12/23 oxybutynin chloride 5 mg tablet 10 mg PO DAILY 06/06/20 03/12/23 pravastatin 40 mg tablet 40 mg PO HS 06/06/20 03/12/23 atenolol 50 mg tablet 50 mg PO TID 01/31/21 03/11/23 buspirone 15 mg tablet 15 mg PO BID 01/31/21 03/11/23 levothyroxine 25 mcg tablet 25 mcg PO DAILY 01/31/21 03/12/23 mecobalamin (vitamin B12) 1,000 1,000 mcg PO DAILY 01/31/21 03/12/23 mcg chewable tablet trazodone 100 mg tablet 200 mg PO QHS 01/31/21 03/12/23 gabapentin 100 mg capsule 100 mg PO HS 03/11/23 03/12/23 hydrocodone 5 mg-acetaminophen 325 1 tablet PO Q4H PRN Pain (Scale 03/11/23 03/12/23 mg tablet Score 4-6) hydroxyzine pamoate 25 mg capsule 25 mg PO HS PRN Sleep 03/11/23 03/12/23 ibuprofen 800 mg tablet 800 mg PO TID PRN Pain (Scale 03/11/23 03/12/23 Score 7-10) lactulose 10 gram/15 mL oral 30 ml PO BID PRN Constipation 03/11/23 03/11/23 solution (Enulose) lisinopril 10 mg tablet 10 mg PO DAILY 03/11/23 03/12/23 acetaminophen 500 mg tablet 1,000 mg PO Q8H PRN Pain (Scale 03/12/23 03/11/23 Score 1-3) metoclopramide HCl 10 mg tablet 10 mg PO BID 03/12/23 03/12/23 Allergies Allergy/AdvReac Type Severity Reaction Status Date / Time aspirin Allergy Unknown Unknown Verified 04/22/23 13:47 erythromycin base Allergy Vomiting Verified 04/22/23 13:47 [From Erythrocin] Review of Systems Review of Systems: All systems reviewed & are unremarkable except as noted in HPI and below PMFSH Past Medical History Medical History Anxiety Bipolar II disorder Chronic anemia Effusion of knee joint right Essential hypertension Fracture Including fractures of the pelvis, right wrist, foot, and ankle. Gastroesophageal reflux disease Hiatal hernia History of deep venous thrombosis Hyperlipemia Hypothyroidism Irritable bowel syndrome with constipation Metabolic syndrome Mixed anxiety and depressive disorder Multiple nodules of lung Obese Recurrent urinary tract infection Right knee DJD Right knee pain Schizophrenia Type 2 diabetes mellitus Hemoglobin A1c was 6.8% in September 2019. Surgical History Surgical History History of section History of tubal ligation Family History Family History Other Diabetes mellitus Family history of alcoholism Family history of arthritis Family history of blood dyscrasia Family history of malignant neoplasm Family history of mental disorder Hypertension Social History Social History Social History: The patient is a resident of [facility]. Lifelong nonsmoker. No alcohol or illicit substance use. Her daughter Jing Marinelli is her healthcare power of associate attorney and she
[2023-04-22] MEDS: KETOROLAC 15 MG/ML VIAL (*BKC) IV PUSH (14:24)
[2023-04-22] MEDS: SODIUM CHLORIDE 0.9% IV 1,000 ML 999 ML IV CONT (14:24)
[2023-04-22] MEDS: MORPHINE SULFATE (*CRX) 2 MG/ML INJ IV PUSH (14:24)
[2023-04-22 14:26] LABS: Add Urine Microscopic? YES; Appearance Urine Cloudy (Clear); Bacteria Urine None Seen /hpf; Bilirubin Urine Negative (Negative); Blood Urine Negative (Negative); Color Urine Yellow (Yellow); Glucose Urine UA Negative (Negative); Ketones Urine Negative (Negative); Leukocyte Esterase Ur 1+ LEU/UL (Negative); Need Manual Microscopic Reviewed; Nitrate Urine Negative (Negative); Non Pathogenic Casts 0-2; Protein Urine Negative (Negative); RBC Urine 0-2 /hpf (0-2); Specific Grav Ur 1.006 (1.001-1.035); Squamous Epithelial Cell Urine None seen /hpf (Few); Urobilinogen Urine 0.2 mg/dL (<2.0); WBC Urine 0-5 /hpf; pH Urine 7.5 (5.0-9.0)
[2023-04-22 15:39] VITALS: BP 166/77; PULSE 73; RESP 18; O2SAT 95
[2023-04-22] MEDS: FAMOTIDINE 20 MG TABLET PO (15:56)
== END 2023-04-22 17:09 ==
PROVIDERS: Emergency Medicine; Emergency Provider Emergency Medicine; PCP Internal Medicine
DX: K57.32 Diverticulitis of large intestine without perforation or abscess without bleeding (principal); I10 Essential (primary) hypertension; E11.9 Type 2 diabetes mellitus without complications; E78.5 Hyperlipidemia, unspecified; E03.9 Hypothyroidism, unspecified; E88.81 Metabolic syndrome and other insulin resistance; D64.9 Anemia, unspecified; K21.9 Gastro-esophageal reflux disease without esophagitis; K44.9 Diaphragmatic hernia without obstruction or gangrene; K58.1 Irritable bowel syndrome with constipation; M17.11 Unilateral primary osteoarthritis, right knee; F31.81 Bipolar II disorder; F20.9 Schizophrenia, unspecified; F41.9 Anxiety disorder, unspecified; Z86.718 Personal history of other venous thrombosis and embolism; Z87.440 Personal history of urinary (tract) infections; Z79.84 Long term (current) use of oral hypoglycemic drugs
CPT/HCPCS: 36415; 74177; 80053; 81001; 83690; 85025; 96361; 96374; 96375; 99284; A9270; J1885; J2270; J7030; Q9967

== ENCOUNTER 2023-04-30 01:41 | Inpatient (IN) | payer OTHER, SELFPAY ==
[2023-04-30] VITALS (22 sets, daily range): BP systolic 142–184; BP diastolic 61–84; PULSE 64–80; RESP 13–20; TEMP 36.3–37; O2SAT 83–98
--- NOTE | ~2023-04-30 | XR_ITS ---
Clinical Indication: Shortness of breath PA and lateral views of the chest: Comparison: 03/13/2023 Findings: Mild bibasilar haziness is present. Possible COPD. Cardiomediastinal silhouette is within normal limits. Compression fracture of L1 noted. Impression: Probable minimal bibasilar pulmonary edema. Suspected underlying COPD. L1 compression fracture. Reviewed, dictated and finalized at location . Impression: Probable minimal bibasilar pulmonary edema. Suspected underlying COPD. L1 compression fracture.
--- NOTE | ~2023-04-30 | XR_ITS ---
Portable chest x-ray Comparison: 04/30/2023 Clinical History: Shortness of breath Findings: Lungs are clear, without focal consolidation or pleural effusion. Cardiomediastinal silho uette is stable. Bones and soft tissues are unremarkable. Impression: Clear lungs. Reviewed, dictated and finalized at location . Impression: Clear lungs.
--- NOTE | 2023-04-30 01:49 | ECG_ITS ---
Measurements Intervals [place] Rate: 67 P: 96 [place]: 172 QRS: 26 QRSD: 90 T: 49 QT: 424 QTc: 450 Interpretive Statements SINUS RHYTHM BASELINE ARTIFACT- I, III, AVR, AVL NORMAL ECG COMPARED TO ECG 03/11/2023 20:11:22 NO SIGNIFICANT CHANGES Electronically Signed On 04-30-2023 6:56:20 CDT by Rio Gannon D.O.
[2023-04-30 01:58] LABS: Basophils Percent Auto 0.6 % (0.2-1.2); Eosinophils Absolute Auto 0.1 K/mm3 (0-0.3); Eosinophils Percent Auto 1.3 % (0-4.4); Hematocrit 34.6 % (37.0-47.0); Hemoglobin 11.5 g/dL (12.0-15.0); Immature Granulocyte Absolute 0.02 K/mm3 (0.00-0.031); Immature Granulocyte Percent A 0.3 % (0-0.5); Lymphocytes Absolute Auto 1.21 K/mm3 (0.9-3.2); Lymphocytes Percent Auto 17.3 % (18.3-44.2); Mean Corpuscular HGB Conc 33.2 g/dl (32-36); Mean Corpuscular Hemoglobin 29.9 pg (26-34); Mean Corpuscular Volume 90.1 fl (80-100); Mean Platelet Volume 9.1 fl (7.4-10.4); Monocytes Absolute Auto 0.7 K/mm3 (0.1-0.6); Monocytes Percent Auto 10.3 % (2.6-8.5); Neutrophils Absolute Auto 4.9 K/mm3 (1.3-6.7); Neutrophils Percent Auto 70.2 % (45.5-73.1); Platelet Count Result 286 k/mm3 (150-375); Red Blood Count 3.84 M/mm3 (4.2-5.4); Red Cell Distribution Width 13.9 % (11.5-14.5)
[2023-04-30 02:08] LABS: Alanine Aminotransferase 27 U/L (6-35); Albumin Level 3.8 g/dL (3.5-5.1); Alkaline Phosphatase 87 U/L (38-126); Anion Gap 5 mmol/L (8-16); Aspartate Amino Transferase 29 U/L (14-36); Bilirubin,Total 0.5 mg/dL (0.2-1.3); Blood Urea Nitrogen 14 mg/dL (7-17); Carbon Dioxide 25 mmol/L (22-30); Chloride 103 mmol/L (98-107); Estimated CRCL calculation 48 ml/min; Estimated Glomerular Filt Rate 49; Glucose 110 mg/dL (65-110); Potassium 3.4 mmol/L (3.4-5.0); Sodium 133 mmol/L (137-145)
--- NOTE | 2023-04-30 02:15 | ED.GENADULT ---
HPI - General Adult General Chief complaint: Shortness of Breath/Dyspnea Stated complaint: short of breath Time Seen by Provider: 04/30/23 01:54 History of Present Illness HPI narrative: Patient 73-year-old female who presents the emergency department chief complaint of shortness of breath. The patient reports that she has prior history of congestive heart failure reports that she was recently in the hospital and was discharged after being diuresed in the hospital the patient states she is currently not on any diuretic and reports that she started having increasing shortness of breath and her oxygen levels were somewhat low today the patient reports that she has had no weight gain reports no peripheral edema Related Data Home Medications Medication Instructions Recorded Confirmed albuterol sulfate 90 mcg/actuation 2 puff inhalation Q4H PRN 06/06/20 03/11/23 aerosol inhaler Shortness Of Breath amlodipine 5 mg tablet 5 mg PO DAILY 06/06/20 03/11/23 fluoxetine 10 mg capsule 30 mg PO HS 06/06/20 03/12/23 fluticasone furoate 50 1 mcg inhalation BID 06/06/20 03/12/23 mcg/actuation blister powder for inhalation hydralazine 50 mg tablet 50 mg PO TID 06/06/20 03/12/23 metformin 1,000 mg tablet 1,000 mg PO BID 06/06/20 03/12/23 oxybutynin chloride 5 mg tablet 10 mg PO DAILY 06/06/20 03/12/23 pravastatin 40 mg tablet 40 mg PO HS 06/06/20 03/12/23 atenolol 50 mg tablet 50 mg PO TID 01/31/21 03/11/23 buspirone 15 mg tablet 15 mg PO BID 01/31/21 03/11/23 levothyroxine 25 mcg tablet 25 mcg PO DAILY 01/31/21 03/12/23 mecobalamin (vitamin B12) 1,000 1,000 mcg PO DAILY 01/31/21 03/12/23 mcg chewable tablet trazodone 100 mg tablet 200 mg PO QHS 01/31/21 03/12/23 gabapentin 100 mg capsule 100 mg PO HS 03/11/23 03/12/23 hydrocodone 5 mg-acetaminophen 325 1 tablet PO Q4H PRN Pain (Scale 03/11/23 03/12/23 mg tablet Score 4-6) hydroxyzine pamoate 25 mg capsule 25 mg PO HS PRN Sleep 03/11/23 03/12/23 ibuprofen 800 mg tablet 800 mg PO TID PRN Pain (Scale 03/11/23 03/12/23 Score 7-10) lactulose 10 gram/15 mL oral 30 ml PO BID PRN Constipation 03/11/23 03/11/23 solution (Enulose) lisinopril 10 mg tablet 10 mg PO DAILY 03/11/23 03/12/23 acetaminophen 500 mg tablet 1,000 mg PO Q8H PRN Pain (Scale 03/12/23 03/11/23 Score 1-3) metoclopramide HCl 10 mg tablet 10 mg PO BID 03/12/23 03/12/23 Allergies Allergy/AdvReac Type Severity Reaction Status Date / Time aspirin Allergy Unknown Unknown Verified 04/30/23 01:50 erythromycin base Allergy Vomiting Verified 04/30/23 01:50 [From Erythrocin] Review of Systems Review of Systems: A 10 system review of systems was completed on the patient and is negative except for what is stated in the HPI. Nursing and ancillary documentation was reviewed. [facility] Past Medical History Medical History Anxiety Bipolar II disorder Chronic anemia Effusion of knee joint right Essential hypertension Fracture Including fractures of the pelvis, right wrist, foot, and ankle. Gastroesophageal reflux disease Hiatal hernia History of deep venous thrombosis Hyperlipemia Hypothyroidism Irritable bowel syndrome with constipation Metabolic syndrome Mixed anxiety and depressive disorder Multiple nodules of lung Obese Recurrent urinary tract infection Right knee DJD Right knee pain Schizophrenia Type 2 diabetes mellitus Hemoglobin A1c was 6.8% in September 2019. Surgical History Surgical History History of section History of tubal ligation Family History Family History Other Diabetes mellitus Family history of alcoholism Family history of arthritis Family history of blood dyscrasia Family history of malignant neoplasm Family history of mental disorder Hypertension Social History Social Hist
[2023-04-30 02:32] LABS: Appearance Urine Clear (Clear); Bacteria Urine None Seen /hpf; Bilirubin Urine Negative (Negative); Blood Urine Negative (Negative); Color Urine Yellow (Yellow); Glucose Urine UA Negative (Negative); Ketones Urine Negative (Negative); Lactic Acid Reflex 1.4 mmol/L (0.7-2.0); Leukocyte Esterase Ur Negative LEU/UL (Negative); Nitrate Urine Negative (Negative); Non Pathogenic Casts 0-2; Protein Urine 1+ mg/dL (Negative); RBC Urine 0-2 /hpf (0-2); Specific Grav Ur 1.006 (1.001-1.035); Squamous Epithelial Cell Urine None seen /hpf (Few); Urobilinogen Urine 0.2 mg/dL (<2.0); WBC Urine 0-5 /hpf; pH Urine 7.5 (5.0-9.0)
[2023-04-30 02:34] LABS: INR 1.1; Magnesium 1.6 mg/dL (1.6-2.3); Prothrombin Time 14.4 Seconds (11.1-14.7)
[2023-04-30 02:35] LABS: Partial Thromboplastin Time 31.1 SECONDS (22.3-36.8)
[2023-04-30 02:36] LABS: Add Urine Microscopic? YES
[2023-04-30 02:47] LABS: NT Pro B Type Natriuretic Pept 2320 pg/mL (19.9-100); Troponin I < 0.012 ng/mL (0.000-0.034)
[2023-04-30 02:55] LABS: Procalcitonin 0.1 ng/mL
[2023-04-30] MEDS: FUROSEMIDE INJ 40 MG/4 ML VIAL IV PUSH ×3 (03:05→20:35)
[2023-04-30 05:42] LABS: Troponin I 0.016 ng/mL (0.000-0.034)
--- NOTE | 2023-04-30 06:45 | ADMGEN ---
This patient, Marcela Rayo, was admitted to [facility] Surg Room 321-01. Patient/family oriented to hospital policies and general routines including ID bracelet, bed and alarms, visiting hours, pain management, procedures, bathroom and other care routines, personal items, smoking policy, room service/diet, and visiting hours. Information on how to activate the Rapid Response Team has been discussed. Patient/Family are encouraged to report perceived risks to care and to ask questions if they do not understand what they are told or what they should do.
[2023-04-30] MEDS: ACETAMINOPHEN 500 MG TABLET 1000 MG PO (10:19)
[2023-04-30] MEDS: LACTULOSE 20 GM/30 ML UDC 30 GM PO (10:20)
[2023-04-30] MEDS: METOCLOPRAMIDE HCL 10 MG TABLET PO (10:21)
[2023-04-30] MEDS: hydrALAZINE HCL 50 MG TABLET PO ×3 (10:21→17:19)
[2023-04-30] MEDS: CYANOCOBALAMIN 1,000 MCG TABLET 1000 MCG PO (10:21)
[2023-04-30] MEDS: oxyBUTYnin CHLORIDE 5 MG TABLET 10 MG PO (10:22)
[2023-04-30] MEDS: FLUoxetine HCL 20 MG CAPSULE PO (10:22)
[2023-04-30] MEDS: LEVOTHYROXINE SODIUM 25 MCG TABLET PO (10:22)
[2023-04-30] MEDS: metFORMIN HCL 500 MG TABLET 1000 MG PO ×2 (10:22→17:19)
[2023-04-30] MEDS: busPIRone HCL 5 MG TABLET 15 MG PO ×2 (10:22→17:19)
[2023-04-30] MEDS: FAMOTIDINE 20 MG TABLET PO ×2 (10:22→20:34)
[2023-04-30] MEDS: DOCUSATE SODIUM 100 MG CAPSULE PO (10:23)
[2023-04-30] MEDS: amLODIPine BESYLATE 5 MG TABLET PO (10:23)
[2023-04-30] MEDS: FERROUS SULFATE 324 MG TABLET PO (10:23)
[2023-04-30] MEDS: ENOXAPARIN 40 MG/0.4 ML SYRINGE SUB-Q (10:23)
[2023-04-30] MEDS: lisinopriL 10 MG TABLET PO (10:23)
[2023-04-30] MEDS: FLUTICASONE PROPIONATE 0.05% NA SPR 16 GM BTL (*BKC) 1 SPRAY NASAL ×2 (10:24→20:34)
[2023-04-30] MEDS: POTASSIUM CHLORIDE 20 MEQ PACKET (FOR LIQUID) 40 MEQ PO (10:32)
[2023-04-30] MEDS: ALBUTEROL SULFATE (*SP) AEROSOL 1 PUFF 2 PUFF INHALATION (10:41)
--- NOTE | 2023-04-30 13:09 | PM.IMHP ---
H&P: HPI History of Present Illness Date/Time: 04/30/23 13:09 Chief Complaint: shortness of breath Narrative: ED-HPI narrative: Patient 73-year-old female who presents the emergency department chief complaint of shortness of breath.? The patient reports that she has prior history of congestive heart failure reports that she was recently in the hospital and was discharged after being diuresed in the hospital the patient states she is currently not on any diuretic and reports that she started having increasing shortness of breath and her oxygen levels were somewhat low today the patient reports that she has had no weight gain reports no peripheral edema patient presented with C/O shortness of breath with history of diastolic congestive heart failure most likely patient has acute on chronic diastolic congstive heart failure, patient has not been taking any diruetics and had been drinking more fluids at home, patient wasl started on Lasix 40mg IV BID and stats feels better compared to when she arrived, will continue to diurese the patient and monitor, Will have PT/OT evaluate the patient, patient admitted as observation status Review of Systems Review of Systems: A 10 system review of systems was completed on the patient and is negative except for what is stated in the HPI. Nursing and ancillary documentation was reviewed. [facility] Past Medical History Medical History Anxiety Bipolar II disorder Chronic anemia Effusion of knee joint right Essential hypertension Fracture Including fractures of the pelvis, right wrist, foot, and ankle. Gastroesophageal reflux disease Hiatal hernia History of deep venous thrombosis Hyperlipemia Hypothyroidism Irritable bowel syndrome with constipation Metabolic syndrome Mixed anxiety and depressive disorder Multiple nodules of lung Obese Recurrent urinary tract infection Right knee DJD Right knee pain Schizophrenia Type 2 diabetes mellitus Hemoglobin A1c was 6.8% in September 2019. Surgical History Surgical History History of section History of tubal ligation Family History Family History Other Diabetes mellitus Family history of alcoholism Family history of arthritis Family history of blood dyscrasia Family history of malignant neoplasm Family history of mental disorder Hypertension Social History Social History Social History: The patient is a resident of [facility]. Lifelong nonsmoker. No alcohol or illicit substance use. Her daughter Jing Marinelli is her healthcare power of mass spectroscopist and she wishes to be a full code. Smoking status: Never smoker Second hand tobacco smoke exposure: No Alcohol intake: never Substance use: never Lack of Transportation: No Lack of Food: Never True Current Housing: I Have Housing Concerned About Future Housing: No Difficulty Paying Gas/Electric Bills: No Difficulty Paying for Meds: No Currently Unemployed: No Education: High School Diploma/GED Difficulty w/ Childcare or Family Care: No Gender identity (if verbalized by the patient): Female Spiritual care concerns: No Meds Home Medications and Allergies Home Medications Medication Instructions Recorded Confirmed Type albuterol sulfate 90 mcg/actuation 2 puff inhalation Q4H PRN 06/06/20 04/30/23 History aerosol inhaler Shortness Of Breath amlodipine 5 mg tablet 5 mg PO DAILY 06/06/20 04/30/23 History fluoxetine 10 mg capsule 30 mg PO HS 06/06/20 04/30/23 History fluticasone furoate 50 1 inh inhalation BID 06/06/20 04/30/23 History mcg/actuation blister powder for inhalation hydralazine 50 mg tablet 50 mg PO TID 06/06/20 04/30/23 History metformin 1,000 mg tablet 1,000 mg
[2023-04-30] MEDS: atenoloL 50 MG TABLET PO ×2 (14:03→21:20)
[2023-04-30] MEDS: CALCIUM CARBONATE (TUMS) 500 MG (200 MG ELEMENTAL) 1000 MG PO (15:14)
[2023-04-30] MEDS: FLUoxetine HCL 10 MG CAPSULE 30 MG PO (20:34)
[2023-04-30] MEDS: traZODone HCL 50 MG TABLET 200 MG PO (20:34)
[2023-04-30] MEDS: GABAPENTIN 100 MG CAPSULE PO (20:34)
[2023-04-30] MEDS: PRAVASTATIN SODIUM 20 MG TABLET 40 MG PO (20:35)
--- NOTE | 2023-04-30 22:31 | PC.NURSE ---
Addendum entered by Aster Mcgovern RN 04/30/23 22:32: transferred to Med surg 323 from IMU 205 Original Note: This patient, Marcela Rayo, was admitted to 3 Med Surg Room 321-01. Patient/family oriented to hospital policies and general routines including ID bracelet, bed and alarms, visiting hours, pain management, procedures, bathroom and other care routines, personal items, smoking policy, room service/diet, and visiting hours. Information on how to activate the Rapid Response Team has been discussed. Patient/Family are encouraged to report perceived risks to care and to ask questions if they do not understand what they are told or what they should do.
--- NOTE | 2023-04-30 22:32 | PC.NURSE ---
This patient, Marcela Rayo, was transferred to [facility] Room 321-01 from IMU 205. Patient/family oriented to hospital policies and general routines including ID bracelet, bed and alarms, visiting hours, pain management, procedures, bathroom and other care routines, personal items, smoking policy, room service/diet, and visiting hours. Information on how to activate the Rapid Response Team has been discussed. Patient/Family are encouraged to report perceived risks to care and to ask questions if they do not understand what they are told or what they should do.
[2023-05-01] VITALS (9 sets, daily range): BP systolic 141–185; BP diastolic 68–83; PULSE 60–69; RESP 16–20; TEMP 36.1–36.6; O2SAT 95–97
[2023-05-01] MEDS: atenoloL 50 MG TABLET PO ×3 (05:02→20:22)
[2023-05-01] MEDS: LEVOTHYROXINE SODIUM 25 MCG TABLET PO (06:05)
[2023-05-01 06:41] LABS: Hematocrit 36.6 % (37.0-47.0); Hemoglobin 12.1 g/dL (12.0-15.0); Mean Corpuscular HGB Conc 33.1 g/dl (32-36); Mean Corpuscular Hemoglobin 29.8 pg (26-34); Mean Corpuscular Volume 90.1 fl (80-100); Platelet Count Result 287 k/mm3 (150-375); Red Blood Count 4.06 M/mm3 (4.2-5.4); Red Cell Distribution Width 14.1 % (11.5-14.5); White Blood Count 6.3 K/mm3 (4.5-10.0)
[2023-05-01 06:48] LABS: Sodium 132 mmol/L (137-145)
[2023-05-01 06:49] LABS: Anion Gap 4 mmol/L (8-16); Blood Urea Nitrogen 17 mg/dL (7-17); Calcium 9.2 mg/dL (8.4-10.2); Carbon Dioxide 31 mmol/L (22-30); Chloride 97 mmol/L (98-107); Estimated CRCL calculation 44 ml/min; Estimated Glomerular Filt Rate 44; Glucose 106 mg/dL (65-110); Magnesium 1.7 mg/dL (1.6-2.3); Potassium 3.5 mmol/L (3.4-5.0)
[2023-05-01] MEDS: oxyBUTYnin CHLORIDE 5 MG TABLET 10 MG PO (08:17)
[2023-05-01] MEDS: FERROUS SULFATE 324 MG TABLET PO (08:17)
[2023-05-01] MEDS: busPIRone HCL 5 MG TABLET 15 MG PO ×2 (08:17→16:40)
[2023-05-01] MEDS: FLUoxetine HCL 20 MG CAPSULE PO (08:17)
[2023-05-01] MEDS: DOCUSATE SODIUM 100 MG CAPSULE PO (08:17)
[2023-05-01] MEDS: lisinopriL 10 MG TABLET PO (08:17)
[2023-05-01] MEDS: FAMOTIDINE 20 MG TABLET PO ×2 (08:17→20:15)
[2023-05-01] MEDS: hydrALAZINE HCL 50 MG TABLET PO ×3 (08:18→16:40)
[2023-05-01] MEDS: FUROSEMIDE INJ 40 MG/4 ML VIAL IV PUSH ×2 (08:18→20:14)
[2023-05-01] MEDS: metFORMIN HCL 500 MG TABLET 1000 MG PO ×2 (08:18→16:41)
[2023-05-01] MEDS: amLODIPine BESYLATE 5 MG TABLET PO (08:18)
[2023-05-01] MEDS: ENOXAPARIN 40 MG/0.4 ML SYRINGE SUB-Q (08:18)
[2023-05-01] MEDS: CYANOCOBALAMIN 1,000 MCG TABLET 1000 MCG PO (08:18)
[2023-05-01] MEDS: FLUTICASONE PROPIONATE 0.05% NA SPR 16 GM BTL (*BKC) 1 SPRAY NASAL ×2 (08:19→20:14)
[2023-05-01] MEDS: POTASSIUM CHLORIDE 20 MEQ PACKET (FOR LIQUID) 40 MEQ PO (09:00)
--- NOTE | 2023-05-01 12:21 | WPDPN ---
Progress Note: A&P Assessment and Plan (1) Acute on chronic diastolic (congestive) heart failure: Code(s): I50.33 - Acute on chronic diastolic (congestive) heart failure Status: Acute Assessment and Plan: ED-HPI narrative: Patient 73-year-old female who presents the emergency department chief complaint of shortness of breath.? The patient reports that she has prior history of congestive heart failure reports that she was recently in the hospital and was discharged after being diuresed in the hospital the patient states she is currently not on any diuretic and reports that she started having increasing shortness of breath and her oxygen levels were somewhat low today the patient reports that she has had no weight gain reports no peripheral edema 05/01/2023 interval history: patient presented with C/O shortness of breath with history of diastolic congestive heart failure most likely patient has acute on chronic diastolic congstive heart failure, patient has not been taking any diruetics and had been drinking more fluids at home, patient was started on Lasix 40mg IV BID and stats feels better compared to when she arrived, patient net urine out put is not significant and she is still short of breath, will place patient on fluids restriction, will continue to diurese the patient and monitor, Will have PT/OT evaluate the patient, (2) Bipolar II disorder: Code(s): F31.81 - Bipolar II disorder Status: Chronic Assessment and Plan: will continue home regimen and monitor (3) GERD (gastroesophageal reflux disease): Code(s): K21.9 - Gastro-esophageal reflux disease without esophagitis Status: Acute Assessment and Plan: will continue PPI (4) Essential hypertension: Code(s): I10 - Essential (primary) hypertension Status: Chronic Assessment and Plan: will continue home regimen and monitor (5) Type 2 diabetes mellitus: Qualifiers: Diabetes mellitus custodial insulin use: with custodial use Diabetes mellitus complication status: without complication Qualified Code(s): E11.9 - Type 2 diabetes mellitus without complications; Z79.4 - terminal gauger (current) use of insulin Code(s): E11.9 - Type 2 diabetes mellitus without complications Status: Chronic Assessment and Plan: will continue home regimen and monitor with sliding scale Subjective Date/time seen: 05/01/23 12:21 Interval history: ED-HPI narrative: Patient 73-year-old female who presents the emergency department chief complaint of shortness of breath.? The patient reports that she has prior history of congestive heart failure reports that she was recently in the hospital and was discharged after being diuresed in the hospital the patient states she is currently not on any diuretic and reports that she started having increasing shortness of breath and her oxygen levels were somewhat low today the patient reports that she has had no weight gain reports no peripheral edema 05/01/2023 interval history: patient presented with C/O shortness of breath with history of diastolic congestive heart failure most likely patient has acute on chronic diastolic congstive heart failure, patient has not been taking any diruetics and had been drinking more fluids at home, patient was started on Lasix 40mg IV BID and stats feels better compared to when she arrived, patient net urine out put is not significant and she is still short of breath, will place patient on fluids restriction, will continue to diurese the patient and monitor, Will have PT/OT evaluate the patient, Review of Systems Review of Systems: A 10 system review of systems was completed on the patient and is negative except for what is stated in the HPI. Nursing and ancillary documentation was reviewed. Exam Narrative: morbidly obese Patient is comfortable, NAD HEENT: eyes are clear and none icteric LUNGS: bilateral fair a
[2023-05-01] MEDS: traZODone HCL 50 MG TABLET 200 MG PO (20:14)
[2023-05-01] MEDS: GABAPENTIN 100 MG CAPSULE PO (20:15)
[2023-05-01] MEDS: FLUoxetine HCL 10 MG CAPSULE 30 MG PO (20:18)
[2023-05-01] MEDS: PRAVASTATIN SODIUM 20 MG TABLET 40 MG PO (20:19)
[2023-05-02] VITALS (7 sets, daily range): BP systolic 139–187; BP diastolic 60–76; PULSE 63–81; RESP 14–18; TEMP 36.3–36.6; O2SAT 92–97
[2023-05-02] MEDS: atenoloL 50 MG TABLET PO ×3 (06:01→20:12)
[2023-05-02] MEDS: LEVOTHYROXINE SODIUM 25 MCG TABLET PO (06:02)
[2023-05-02 06:32] LABS: Hematocrit 37.4 % (37.0-47.0); Hemoglobin 12.3 g/dL (12.0-15.0); Mean Corpuscular HGB Conc 32.9 g/dl (32-36); Mean Corpuscular Volume 91.2 fl (80-100); Mean Platelet Volume 9.1 fl (7.4-10.4); Platelet Count Result 294 k/mm3 (150-375); White Blood Count 7.2 K/mm3 (4.5-10.0)
[2023-05-02 06:55] LABS: Anion Gap 4 mmol/L (8-16); Blood Urea Nitrogen 19 mg/dL (7-17); Calcium 8.9 mg/dL (8.4-10.2); Carbon Dioxide 30 mmol/L (22-30); Chloride 96 mmol/L (98-107); Estimated CRCL calculation 48 ml/min; Estimated Glomerular Filt Rate 49; Glucose 96 mg/dL (65-110); Magnesium 1.7 mg/dL (1.6-2.3); Potassium 3.6 mmol/L (3.4-5.0); Sodium 130 mmol/L (137-145)
[2023-05-02] MEDS: ENOXAPARIN 40 MG/0.4 ML SYRINGE SUB-Q (09:11)
[2023-05-02] MEDS: hydrALAZINE HCL 50 MG TABLET PO ×3 (09:11→17:43)
[2023-05-02] MEDS: busPIRone HCL 5 MG TABLET 15 MG PO ×2 (09:11→17:43)
[2023-05-02] MEDS: metFORMIN HCL 500 MG TABLET 1000 MG PO ×2 (09:11→17:43)
[2023-05-02] MEDS: FAMOTIDINE 20 MG TABLET PO ×2 (09:12→20:11)
[2023-05-02] MEDS: oxyBUTYnin CHLORIDE 5 MG TABLET 10 MG PO (09:12)
[2023-05-02] MEDS: FERROUS SULFATE 324 MG TABLET PO (09:12)
[2023-05-02] MEDS: amLODIPine BESYLATE 5 MG TABLET PO (09:12)
[2023-05-02] MEDS: FLUoxetine HCL 20 MG CAPSULE PO (09:12)
[2023-05-02] MEDS: FUROSEMIDE INJ 40 MG/4 ML VIAL IV PUSH ×2 (09:12→20:05)
[2023-05-02] MEDS: DOCUSATE SODIUM 100 MG CAPSULE PO (09:12)
[2023-05-02] MEDS: FLUTICASONE PROPIONATE 0.05% NA SPR 16 GM BTL (*BKC) 1 SPRAY NASAL ×2 (09:13→20:11)
[2023-05-02] MEDS: CYANOCOBALAMIN 1,000 MCG TABLET 1000 MCG PO (09:13)
[2023-05-02] MEDS: lisinopriL 10 MG TABLET PO (09:13)
--- NOTE | 2023-05-02 13:12 | WPDPN ---
Progress Note: A&P Assessment and Plan (1) Acute on chronic diastolic (congestive) heart failure: Code(s): I50.33 - Acute on chronic diastolic (congestive) heart failure Status: Acute Assessment and Plan: ED-HPI narrative: Patient 73-year-old female who presents the emergency department chief complaint of shortness of breath.? The patient reports that she has prior history of congestive heart failure reports that she was recently in the hospital and was discharged after being diuresed in the hospital the patient states she is currently not on any diuretic and reports that she started having increasing shortness of breath and her oxygen levels were somewhat low today the patient reports that she has had no weight gain reports no peripheral edema 05/02/2023 interval history: patient presented with C/O shortness of breath with history of diastolic congestive heart failure most likely patient has acute on chronic diastolic congstive heart failure, patient has not been taking any diruetics and had been drinking more fluids at home, patient was started on Lasix 40mg IV BID and stats feels better compared to when she arrived, patient net urine out put is not significant and she is still short of breath, placed patient on fluids restriction, patient is requiring oxygen and gets short of breath with exertion, will continue to diurese the patient and monitor, Will have PT/OT evaluate the patient, (2) Bipolar II disorder: Code(s): F31.81 - Bipolar II disorder Status: Chronic Assessment and Plan: will continue home regimen and monitor (3) GERD (gastroesophageal reflux disease): Code(s): K21.9 - Gastro-esophageal reflux disease without esophagitis Status: Acute Assessment and Plan: will continue PPI (4) Essential hypertension: Code(s): I10 - Essential (primary) hypertension Status: Chronic Assessment and Plan: will continue home regimen and monitor (5) Type 2 diabetes mellitus: Qualifiers: Diabetes mellitus jail insulin use: with intermediate manager use Diabetes mellitus complication status: without complication Qualified Code(s): E11.9 - Type 2 diabetes mellitus without complications; Z79.4 - assisted (current) use of insulin Code(s): E11.9 - Type 2 diabetes mellitus without complications Status: Chronic Assessment and Plan: will continue home regimen and monitor with sliding scale Subjective Date/time seen: 05/02/23 13:13 Interval history: ED-HPI narrative: Patient 73-year-old female who presents the emergency department chief complaint of shortness of breath.? The patient reports that she has prior history of congestive heart failure reports that she was recently in the hospital and was discharged after being diuresed in the hospital the patient states she is currently not on any diuretic and reports that she started having increasing shortness of breath and her oxygen levels were somewhat low today the patient reports that she has had no weight gain reports no peripheral edema 05/02/2023 interval history: patient presented with C/O shortness of breath with history of diastolic congestive heart failure most likely patient has acute on chronic diastolic congstive heart failure, patient has not been taking any diruetics and had been drinking more fluids at home, patient was started on Lasix 40mg IV BID and stats feels better compared to when she arrived, patient net urine out put is not significant and she is still short of breath, placed patient on fluids restriction, patient is requiring oxygen and gets short of breath with exertion, will continue to diurese the patient and monitor, Will have PT/OT evaluate the patient, Review of Systems Review of Systems: A 10 system review of systems was completed on the patient and is negative except for what is stated in the HPI. Nursing and ancillary documentation was reviewed. Exam
--- NOTE | 2023-05-02 13:40 | PCPTNOTE ---
On 05/02/23, the student, ALIREZA Hernández, provided care and completed [facility] documentation on this patient. I have reviewed the student's documentation and agree with the findings.
[2023-05-02] MEDS: FLUoxetine HCL 10 MG CAPSULE 30 MG PO (20:11)
[2023-05-02] MEDS: traZODone HCL 50 MG TABLET 200 MG PO (20:12)
[2023-05-02] MEDS: GABAPENTIN 100 MG CAPSULE PO (20:12)
[2023-05-02] MEDS: PRAVASTATIN SODIUM 20 MG TABLET 40 MG PO (20:12)
[2023-05-03] VITALS (10 sets, daily range): BP systolic 151; BP diastolic 71; PULSE 60–89; RESP 18; TEMP 36; O2SAT 86–99
[2023-05-03] MEDS: atenoloL 50 MG TABLET PO (06:12)
[2023-05-03] MEDS: LEVOTHYROXINE SODIUM 25 MCG TABLET PO (06:12)
[2023-05-03 06:30] LABS: Hematocrit 36.6 % (37.0-47.0); Hemoglobin 12.2 g/dL (12.0-15.0); Mean Corpuscular HGB Conc 33.3 g/dl (32-36); Mean Corpuscular Hemoglobin 30.1 pg (26-34); Mean Corpuscular Volume 90.4 fl (80-100); Mean Platelet Volume 8.9 fl (7.4-10.4); Platelet Count Result 290 k/mm3 (150-375); Red Blood Count 4.05 M/mm3 (4.2-5.4); Red Cell Distribution Width 14.1 % (11.5-14.5); White Blood Count 6.8 K/mm3 (4.5-10.0)
[2023-05-03 06:42] LABS: Anion Gap 7 mmol/L (8-16); Blood Urea Nitrogen 25 mg/dL (7-17); Calcium 9.1 mg/dL (8.4-10.2); Carbon Dioxide 26 mmol/L (22-30); Chloride 98 mmol/L (98-107); Estimated CRCL calculation 44 ml/min; Estimated Glomerular Filt Rate 44; Glucose 97 mg/dL (65-110); Magnesium 1.9 mg/dL (1.6-2.3); Sodium 131 mmol/L (137-145)
[2023-05-03] MEDS: CALCIUM CARBONATE (TUMS) 500 MG (200 MG ELEMENTAL) 400 MG PO (06:49)
[2023-05-03] MEDS: FLUTICASONE PROPIONATE 0.05% NA SPR 16 GM BTL (*BKC) 1 SPRAY NASAL (08:39)
[2023-05-03] MEDS: lisinopriL 10 MG TABLET PO (08:40)
[2023-05-03] MEDS: FUROSEMIDE INJ 40 MG/4 ML VIAL IV PUSH (08:40)
[2023-05-03] MEDS: DOCUSATE SODIUM 100 MG CAPSULE PO (08:40)
[2023-05-03] MEDS: FERROUS SULFATE 324 MG TABLET PO (08:40)
[2023-05-03] MEDS: oxyBUTYnin CHLORIDE 5 MG TABLET 10 MG PO (08:40)
[2023-05-03] MEDS: busPIRone HCL 5 MG TABLET 15 MG PO (08:40)
[2023-05-03] MEDS: FAMOTIDINE 20 MG TABLET PO (08:41)
[2023-05-03] MEDS: hydrALAZINE HCL 50 MG TABLET PO ×2 (08:41→13:05)
[2023-05-03] MEDS: metFORMIN HCL 500 MG TABLET 1000 MG PO (08:41)
[2023-05-03] MEDS: ENOXAPARIN 40 MG/0.4 ML SYRINGE SUB-Q (08:41)
[2023-05-03] MEDS: CYANOCOBALAMIN 1,000 MCG TABLET 1000 MCG PO (08:41)
[2023-05-03] MEDS: FLUoxetine HCL 20 MG CAPSULE PO (08:42)
[2023-05-03] MEDS: amLODIPine BESYLATE 5 MG TABLET PO (08:42)
--- NOTE | 2023-05-03 11:17 | HOMEO2EVAL ---
Evaluation was performed at [facility] Home Oxygen Evaluation RC: Home Oxygen (O2) Evaluation Start: 05/03/23 10:30 Freq: ONCE Status: Active Protocol: RPE Activity Type Activity Date Activity User E-sign Co-sign Detail Recorded Client Recorded Date Recorded By Document 05/03/23 10:45 [email or web address] [email or web address] 05/03/23 11:17 DJO Document 05/03/23 10:50 [email or web address] [email or web address] 05/03/23 11:17 DJO Document 05/03/23 10:55 [email or web address] [email or web address] 05/03/23 11:17 DJO Document 05/03/23 11:00 [email or web address] [email or web address] 05/03/23 11:17 DJO Document 05/03/23 11:15 [email or web address] [email or web address] 05/03/23 11:17 DJO 05/03/23 05/03/23 05/03/23 10:45 10:50 10:55 Home O2 Evaluation [Oxygen] -Test Phase Resting Exercise Exercise -Oxygen Delivery Room Air Room Air Nasal Cannula -Oxygen Flow Rate (L/min) 1 [Pulse Oximetry] -Pulse Oximetry (90-100 %) 94 86 L 88 L [Pulse Rate] -Pulse Rate (60-100 beats/min) 83 89 88 [Evaluation] -Activity Tolerance [Exercise] -Ambulation Distance (feet) -Ambulation Distance (meters) [Charges] -Treatment Charges O2 Evaluation - Inpatient 05/03/23 05/03/23 11:00 11:15 Home O2 Evaluation [Oxygen] -Test Phase Exercise Resting -Oxygen Delivery Nasal Cannula Room Air -Oxygen Flow Rate (L/min) 2 [Pulse Oximetry] -Pulse Oximetry (90-100 %) 91 93 [Pulse Rate] -Pulse Rate (60-100 beats/min) 87 77 [Evaluation] -Activity Tolerance Good [Exercise] -Ambulation Distance (feet) 750 -Ambulation Distance (meters) 228.58 [Charges] -Treatment Charges
--- NOTE | 2023-05-03 11:19 | PM.DS ---
DS: Admitting Diagnosis Discharge Date 05/03/2023 Admitting Diagnosis shortness of breath DS: Discharge Diagnosis Discharge Diagnosis (1) Acute on chronic diastolic (congestive) heart failure: Code(s): I50.33 - Acute on chronic diastolic (congestive) heart failure Status: Acute Assessment and Plan: ED-HPI narrative: Patient 73-year-old female who presents the emergency department chief complaint of shortness of breath.? The patient reports that she has prior history of congestive heart failure reports that she was recently in the hospital and was discharged after being diuresed in the hospital the patient states she is currently not on any diuretic and reports that she started having increasing shortness of breath and her oxygen levels were somewhat low today the patient reports that she has had no weight gain reports no peripheral edema 05/02/2023 interval history: patient presented with C/O shortness of breath with history of diastolic congestive heart failure most likely patient has acute on chronic diastolic congstive heart failure, patient has not been taking any diruetics and had been drinking more fluids at home, patient was started on Lasix 40mg IV BID and stats feels better compared to when she arrived, patient net urine out put is not significant and she is still short of breath, placed patient on fluids restriction, patient is requiring oxygen and gets short of breath with exertion, will continue to diurese the patient and monitor, Will have PT/OT evaluate the patient, (2) Bipolar II disorder: Code(s): F31.81 - Bipolar II disorder Status: Chronic Assessment and Plan: will continue home regimen and monitor (3) GERD (gastroesophageal reflux disease): Code(s): K21.9 - Gastro-esophageal reflux disease without esophagitis Status: Acute Assessment and Plan: will continue PPI (4) Essential hypertension: Code(s): I10 - Essential (primary) hypertension Status: Chronic Assessment and Plan: will continue home regimen and monitor (5) Type 2 diabetes mellitus: Qualifiers: Diabetes mellitus 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 The patient reports that she has prior history of congestive heart failure reports that she was recently in the hospital and was discharged after being diuresed in the hospital the patient states she is currently not on any diuretic and reports that she started having increasing shortness of breath and her oxygen levels were somewhat low today the patient reports that she has had no weight gain reports no peripheral edema patient presented with C/O shortness of breath with history of diastolic congestive heart failure most likely patient has acute on chronic diastolic congstive heart failure, patient has not been taking any diruetics and had been drinking more fluids at home, patient wasl started on Lasix 40mg IV BID and stats feels better compared to when she arrived, will continue to diurese the patient and monitor,? Will have PT/OT evaluate the patient, Hospital Course: patient presented with C/O shortness of breath with history of diastolic congestive heart failure most likely patient has acute on chronic diastolic congstive heart failure, patient has not been taking any diruetics and had been drinking more fluids at home, patient was started on Lasix 40mg
--- NOTE | 2023-05-03 12:47 | PCRCNOTE ---
HOME OXYGEN SET UP WITH [facility]. PHONE NUMBER [phone]. TANK IN ROOM FOR DISCHARGE.
== END 2023-05-03 13:50 | DRG 194 ==
LOC: ANHED 03:26 → ANH3MEDSUR 06:39
PROVIDERS: Admitting Provider Internal Medicine; Emergency Provider Emergency Medicine; PCP Internal Medicine; Visit Provider Family Medicine
DX: I11.0 Hypertensive heart disease with heart failure (principal); E11.9 Type 2 diabetes mellitus without complications; E03.9 Hypothyroidism, unspecified; I50.33 Acute on chronic diastolic (congestive) heart failure; E78.5 Hyperlipidemia, unspecified; K21.9 Gastro-esophageal reflux disease without esophagitis; K44.9 Diaphragmatic hernia without obstruction or gangrene; K58.1 Irritable bowel syndrome with constipation; M17.11 Unilateral primary osteoarthritis, right knee; Z86.718 Personal history of other venous thrombosis and embolism; F41.9 Anxiety disorder, unspecified
CPT/HCPCS: 36415; 71045; 71046; 80048; 80053; 81001; 83605; 83735; 83880; 84145; 84484; 85025; 85027; 85610; 85730; 93005; 94618; 96372; 96374; 96376; 97161; 97165; 99285; A9270; G0378; G0379; J1650; J1940

== ENCOUNTER 2023-08-28 14:19 | Inpatient (IN) | payer MEDICAID, SELFPAY ==
[2023-08-28] VITALS (11 sets, daily range): BP systolic 149–179; BP diastolic 79–91; PULSE 71–87; RESP 16–24; TEMP 36.6–37; O2SAT 88–98; BMI 30.4
--- NOTE | ~2023-08-28 | XR_ITS ---
EXAMINATION: XR chest 1V portable DATE: 08/28/2023 16:15 INDICATION: Shortness of breath. TECHNIQUE: A single frontal view of the chest was obtained. COMPARISON: Chest single view 05/02/2023 FINDINGS: The patient is rotated to her right. There are interstitial opacities in right lung and lef t lower lung zone. No pleural effusion or pneumothorax. The heart size is normal. There is a large hi atal hernia. IMPRESSION: 1. Interstitial opacities in right lung and left lower lung zone, consistent with mild atelectasis ve rsus mild pulmonary edema versus atypical pneumonia. 2. Large hiatal hernia. Reviewed, dictated and finalized at location E. [employer] IMPRESSION: 1. Interstitial opacities in right lung and left lower lung zone, consistent wi th mild atelectasis versus mild pulmonary edema versus atypical pneumonia. 2. Large hiatal hernia.
--- NOTE | 2023-08-28 15:41 | PC.NURSE ---
Patient assisted to bathroom by this RN. Patient request supplemental oxygen be discontinued. Patient stated, I don't need it .
[2023-08-28] MEDS: IPRATROPIUM BR 0.02% INH SOLN 0.5 MG/2.5 ML VIAL INHALATION (16:17)
[2023-08-28] MEDS: ALBUTEROL SULFATE NEB 2.5 MG/3 ML INH INHALATION ×2 (16:17→23:26)
[2023-08-28 17:00] LABS: Basophils Percent Auto 0.5 % (0.2-1.2); Eosinophils Percent Auto 0.1 % (0-4.4); Hematocrit 32.6 % (37.0-47.0); Hemoglobin 10.6 g/dL (12.0-15.0); Immature Granulocyte Absolute 0.07 K/mm3 (0.00-0.031); Immature Granulocyte Percent A 0.8 % (0-0.5); Lymphocytes Absolute Auto 0.63 K/mm3 (0.9-3.2); Lymphocytes Percent Auto 7.2 % (18.3-44.2); Mean Corpuscular HGB Conc 32.5 g/dl (32-36); Mean Corpuscular Hemoglobin 29.7 pg (26-34); Mean Corpuscular Volume 91.3 fl (80-100); Mean Platelet Volume 9.2 fl (7.4-10.4); Monocytes Absolute Auto 0.6 K/mm3 (0.1-0.6); Monocytes Percent Auto 7.2 % (2.6-8.5); Neutrophils Absolute Auto 7.4 K/mm3 (1.3-6.7); Neutrophils Percent Auto 84.2 % (45.5-73.1); Platelet Count Result 217 k/mm3 (150-375); Red Blood Count 3.57 M/mm3 (4.2-5.4); White Blood Count 8.7 K/mm3 (4.5-10.0)
[2023-08-28 17:11] LABS: INR 1.1; Prothrombin Time 14.9 Seconds (11.1-14.7)
[2023-08-28 17:12] LABS: Partial Thromboplastin Time 26.1 SECONDS (22.3-36.8)
--- NOTE | 2023-08-28 17:25 | ED.SOB ---
HPI - SOB/Dyspnea General Chief Complaint: Shortness of Breath/Dyspnea Stated Complaint: COVID+ 08/28 Time Seen by Provider: 08/28/23 16:00 History of Present Illness HPI Narrative: Patient is a 73-year-old female who presents ER with reports of viral illness 2 days ago patient began having cough. She then developed headache and fevers and chills. Today she has been more short of breath. She has a prescription for oxygen at home that she is to wear at night. She is currently satting 87 to 88% on room air. No chest pain or chest pressure. Patient was diagnosed as COVID-positive. Related Data Home Medications Medication Instructions Recorded Confirmed albuterol sulfate 90 mcg/actuation 2 puff inhalation Q4H PRN 06/06/20 04/30/23 aerosol inhaler Shortness Of Breath amlodipine 5 mg tablet 5 mg PO DAILY 06/06/20 04/30/23 fluoxetine 10 mg capsule 30 mg PO HS 06/06/20 04/30/23 fluticasone furoate 50 1 inh inhalation BID 06/06/20 04/30/23 mcg/actuation blister powder for inhalation hydralazine 50 mg tablet 50 mg PO TID 06/06/20 04/30/23 metformin 1,000 mg tablet 1,000 mg PO BID 06/06/20 04/30/23 oxybutynin chloride 5 mg tablet 10 mg PO DAILY 06/06/20 04/30/23 pravastatin 40 mg tablet 40 mg PO HS 06/06/20 04/30/23 atenolol 50 mg tablet 50 mg PO TID 01/31/21 04/30/23 buspirone 15 mg tablet 15 mg PO BID 01/31/21 04/30/23 levothyroxine 25 mcg tablet 25 mcg PO DAILY 01/31/21 04/30/23 mecobalamin (vitamin B12) 1,000 1,000 mcg PO DAILY 01/31/21 04/30/23 mcg chewable tablet trazodone 100 mg tablet 200 mg PO QHS 01/31/21 04/30/23 gabapentin 100 mg capsule 100 mg PO HS 03/11/23 04/30/23 hydrocodone 5 mg-acetaminophen 325 1 tablet PO Q4H PRN Pain (Scale 03/11/23 04/30/23 mg tablet Score 4-6) hydroxyzine pamoate 25 mg capsule 25 mg PO HS PRN Sleep 03/11/23 04/30/23 ibuprofen 800 mg tablet 800 mg PO TID PRN Pain (Scale 03/11/23 04/30/23 Score 7-10) lactulose 10 gram/15 mL oral 30 ml PO BID PRN Constipation 03/11/23 04/30/23 solution (Enulose) lisinopril 10 mg tablet 10 mg PO DAILY 03/11/23 04/30/23 acetaminophen 500 mg tablet 1,000 mg PO BID PRN Pain (Scale 03/12/23 04/30/23 Score 1-3) calcium carbonate 500 mg calcium 1,000 mg PO PRN PRN Indigestion 04/30/23 04/30/23 (1,250 mg) chewable tablet ferrous sulfate 325 mg (65 mg 325 mg PO DAILY 04/30/23 04/30/23 iron) tablet fluoxetine 20 mg capsule 20 mg PO BID 04/30/23 04/30/23 hyoscyamine sulfate 0.125 mg tablet 0.125 mg PO QID PRN dyspepsia 04/30/23 04/30/23 Allergies Allergy/AdvReac Type Severity Reaction Status Date / Time aspirin Allergy Unknown Unknown Verified 08/28/23 15:59 erythromycin base Allergy Vomiting Verified 08/28/23 15:59 [From Erythrocin] Review of Systems Review of Systems: All systems reviewed & are unremarkable except as noted in HPI and below Constitutional: Constitutional: Reports chills, Reports fatigue and Reports fever(s) ENT: Reports nasal congestion and Reports sore throat Cardiovascular: Cardiovascular: Denies chest pain, Denies rapid heart rate and Denies radiating jaw, neck or arm pain Respiratory: Respiratory: Reports cough, Reports dyspnea and Denies wheezing Gastrointestinal: Gastrointestinal: Reports no additional gastrointestinal complaints Genitourinary: Genitourinary: Reports no additional female genitourinary complaints Musculoskeletal: Musculoskeletal: Reports no additional musculoskeletal complaints [facility] Past Medical History Medical History Anxiety Bipolar II disorder Chronic anemia Effusion of knee joint right Essential hypertension Fracture Including fractures of the pelvis, right wrist, foot, and ankle. Gastroesophageal reflux disease Hiatal hernia History of deep venous thrombosis Hyperlipemia Hypothyroidism Irritable bowel syndrome with constipation Metabolic syndrome Mixed anxiety and depressive disorder Multiple nodules of lung Obese R
[2023-08-28 18:06] LABS: Alanine Aminotransferase 30 U/L (6-35); Albumin Level 4.1 g/dL (3.5-5.1); Alkaline Phosphatase 88 U/L (38-126); Anion Gap 7 mmol/L (8-16); Aspartate Amino Transferase 29 U/L (14-36); Bilirubin,Total 0.7 mg/dL (0.2-1.3); Blood Urea Nitrogen 16 mg/dL (7-17); Calcium 8.8 mg/dL (8.4-10.2); Carbon Dioxide 28 mmol/L (22-30); Chloride 99 mmol/L (98-107); Estimated CRCL calculation 40 ml/min; Estimated Glomerular Filt Rate 40; Glucose 113 mg/dL (65-110); Potassium 2.7 mmol/L (3.4-5.0); Sodium 134 mmol/L (137-145)
[2023-08-28 18:08] LABS: NT Pro B Type Natriuretic Pept 5850 pg/mL (19.9-100)
[2023-08-28] MEDS: POTASSIUM CHLORIDE 20 MEQ ER TABLET 40 MEQ PO (18:38)
[2023-08-28] MEDS: MORPHINE SULFATE (*CRX) 2 MG/ML INJ IV PUSH (18:38)
--- NOTE | 2023-08-28 18:41 | PC.NURSE ---
This RN went into room to give pt meds. Pt was eating with all of her leads and oxygen off and is refusing to allow me to place them on while she eats.
--- NOTE | 2023-08-28 20:08 | PM.IMHP ---
H&P: HPI History of Present Illness Date/Time: 08/28/23 20:08 Chief Complaint: Generalized weakness Narrative: Or this is a 73-year-old female with past medical history significant for COPD/asthma, hypertension, anxiety, neuropathy, type diabetes mellitus, hypertension, hypothyroidism, bipolar disorder, GERD. Patient presents to the emergency room due to generalized body aches and pains malaise poor appetite cough shortness of breath chills fevers. Patient states that she tested positive for COVID. Preliminary workup was significant for chest x-ray with infiltrates. Patient has been admitted for further evaluation management and treatment. EXAMINATION: CT abdomen pelvis w con INDICATION: Generalized abdominal pain TECHNIQUE: Computed tomographic images of the abdomen and pelvis were obtained after the administration of 100 cc of Omnipaque 350 intravenous contrast. The dose-length product (DLP) was 1007.98 mGy-cm. Automated exposure control and iterative reconstruction technique were employed. COMPARISON: 07/30/2015 FINDINGS: Minimal dependent atelectasis is present in the lung bases. The heart size is normal. The gallbladder is surgically absent. There is mild enlargement of the common bile duct and central intrahepatic ducts which is likely due to post cholecystectomy state. Calcified coronary artery atherosclerosis is noted. There is a posterior diverticulum of the gastric fundus. The liver, spleen, pancreas, and adrenal glands are normal. There is severe atrophy of the right kidney and moderate atrophy of the left kidney. There is calcified atherosclerosis of the aorta and many of the other arteries. There is mild left hydroureter with a possible soft tissue lesion at the distal ureter near the ureterovesicular junction. There is a left inguinal hernia containing a short segment of nonobstructed small bowel. Colonic diverticulosis is present without evidence of diverticulitis. There is a small amount of soft tissue inflammation overlying the left hip. There is severe thoracic and lumbar spondylosis.? There is vertebroplasty change at L5. IMPRESSION: 1. No CT correlate for the patient's symptoms. 2. Left inguinal hernia containing a short segment of nonobstructed small bowel. 3. Mild left hydroureter with possible soft tissue lesion at the ureterovesicular junction. Review of Systems Review of Systems: Fevers, rigors, chills generalized body aches and pains, generalized malaise shortness of breath cough tested positive for COVID Constitutional: Constitutional: Reports chills, Reports fatigue, Reports fever(s), Reports malaise and Reports weakness Eyes: Eyes: Denies change in vision ENT: Denies dysphagia, Denies vertigo, Denies dizziness and Denies odynophagia Cardiovascular: Cardiovascular: Denies chest pain, Denies radiating jaw, neck or arm pain and Denies palpitations Respiratory: Respiratory: Reports cough and Reports dyspnea Gastrointestinal: Gastrointestinal: Denies abdominal pain, Denies dyspepsia, Denies heartburn, Denies diarrhea, Denies nausea and Denies vomiting Genitourinary: Genitourinary: Denies dysuria Musculoskeletal: Musculoskeletal: Reports myalgias and Reports muscle weakness Integumentary/Breasts: Skin/Breast: Denies rash Neurologic: Denies focal weakness and Denies Sensory deficit (Neuro) Psychiatric: Psychiatric: Reports no additional psychiatric complaints and Reports as per HPI Endocrine: Endocrine: Denies cold intolerance, Denies flushing, Denies heat intolerance, Denies polyphagia, Denies polydipsia and Denies palpitations Hematologic/Lymphatic: Hematologic/Lymphatic: Reports no additional hematologic/lymphatic complaints and Reports as per HPI Allergic/Immunologic: Allergic/Immunologic: Reports no additional allergic/immunologic complaints and Reports as per HPI [facility] Past Medical History Medical History Anxiety Bipolar
[2023-08-28] MEDS: HYDROcodone/acetaminophen (*CRX) 5-325 MG TABLET 1 TAB PO (21:53)
--- NOTE | 2023-08-28 21:57 | ADMGEN ---
This patient, Marcela Rayo, was admitted to Medical Room 344-01. Patient/family oriented to hospital policies and general routines including ID bracelet, bed and alarms, visiting hours, pain management, procedures, bathroom and other care routines, personal items, smoking policy, room service/diet, and visiting hours. Information on how to activate the Rapid Response Team has been discussed. Patient/Family are encouraged to report perceived risks to care and to ask questions if they do not understand what they are told or what they should do.
[2023-08-29] VITALS (15 sets, daily range): BP systolic 140–149; BP diastolic 64–82; PULSE 66–87; RESP 16–18; TEMP 36.5–37.2; O2SAT 92–95
[2023-08-29] MEDS: cefTRIAXone 2 GM/NS 100 ML 2 GM/100 ML BAG IVPB (03:21)
[2023-08-29] MEDS: AZITHROMYCIN 500 MG/NS 250 ML 500 MG/250 ML BAG 250 MG IVPB (03:24)
[2023-08-29] MEDS: hydrALAZINE HCL 50 MG TABLET PO ×3 (05:43→22:00)
[2023-08-29] MEDS: LEVOTHYROXINE SODIUM 25 MCG TABLET PO (05:43)
[2023-08-29] MEDS: HYDROcodone/acetaminophen (*CRX) 5-325 MG TABLET 1 TAB PO ×2 (05:43→17:32)
[2023-08-29] MEDS: ALBUTEROL SULFATE (*SP) AEROSOL 1 PUFF 2 PUFF INHALATION ×3 (07:45→21:40)
[2023-08-29 08:32] LABS: Glucose Point of Care 110 mg/dl (65-105)
[2023-08-29 09:13] LABS: Basophils Percent Auto 0.4 % (0.2-1.2); Eosinophils Absolute Auto 0.2 K/mm3 (0-0.3); Eosinophils Percent Auto 2.7 % (0-4.4); Hematocrit 28.6 % (37.0-47.0); Immature Granulocyte Absolute 0.03 K/mm3 (0.00-0.031); Immature Granulocyte Percent A 0.5 % (0-0.5); Lymphocytes Absolute Auto 0.66 K/mm3 (0.9-3.2); Mean Corpuscular HGB Conc 31.5 g/dl (32-36); Mean Corpuscular Hemoglobin 28.9 pg (26-34); Mean Platelet Volume 8.9 fl (7.4-10.4); Monocytes Absolute Auto 0.6 K/mm3 (0.1-0.6); Neutrophils Absolute Auto 4.1 K/mm3 (1.3-6.7); Neutrophils Percent Auto 74.4 % (45.5-73.1); Platelet Count Result 175 k/mm3 (150-375); Red Blood Count 3.11 M/mm3 (4.2-5.4); Red Cell Distribution Width 15.1 % (11.5-14.5); White Blood Count 5.5 K/mm3 (4.5-10.0)
[2023-08-29 09:25] LABS: Alanine Aminotransferase 26 U/L (6-35); Albumin Level 3.7 g/dL (3.5-5.1); Alkaline Phosphatase 72 U/L (38-126); Anion Gap 8 mmol/L (8-16); Aspartate Amino Transferase 32 U/L (14-36); Bilirubin,Total 0.5 mg/dL (0.2-1.3); Blood Urea Nitrogen 14 mg/dL (7-17); Calcium 8.5 mg/dL (8.4-10.2); Carbon Dioxide 26 mmol/L (22-30); Chloride 100 mmol/L (98-107); Estimated CRCL calculation 38 ml/min; Estimated Glomerular Filt Rate 37; Glucose 106 mg/dL (65-110); Potassium 2.8 mmol/L (3.4-5.0); Sodium 134 mmol/L (137-145)
[2023-08-29] MEDS: lisinopriL 10 MG TABLET PO (09:49)
[2023-08-29] MEDS: oxyBUTYnin CHLORIDE 5 MG TABLET 10 MG PO (09:49)
[2023-08-29] MEDS: DOCUSATE SODIUM 100 MG CAPSULE PO (09:50)
[2023-08-29] MEDS: amLODIPine BESYLATE 5 MG TABLET PO (09:50)
[2023-08-29 11:28] LABS: Iron 25 ug/dL (37-170)
[2023-08-29 11:36] LABS: Transferrin 232 mg/dL (206-381)
[2023-08-29 11:38] LABS: Percent Iron Saturation 8 % (20-50)
[2023-08-29] MEDS: POTASSIUM CHLORIDE INJ 40 MEQ in SODIUM CHLORIDE 0.9% IV 500 ML 130 MEQ IVPB (11:39)
[2023-08-29] MEDS: busPIRone HCL 5 MG TABLET 15 MG PO ×2 (11:39→17:31)
[2023-08-29] MEDS: FAMOTIDINE 20 MG TABLET 40 MG PO ×2 (11:40→17:31)
[2023-08-29] MEDS: ENOXAPARIN 40 MG/0.4 ML SYRINGE SUB-Q (11:43)
[2023-08-29 12:37] LABS: Folic Acid > 20.0 ng/mL (2.76->20); Vitamin B12 > 1000.0 pg/mL (239-931)
[2023-08-29] MEDS: FUROSEMIDE INJ 40 MG/4 ML VIAL IV PUSH (13:03)
[2023-08-29] MEDS: atenoloL 50 MG TABLET PO ×2 (13:04→17:30)
[2023-08-29] MEDS: POTASSIUM CHLORIDE 20 MEQ ER TABLET PO (13:04)
[2023-08-29 13:11] LABS: Glucose Point of Care 134 mg/dl (65-105)
--- NOTE | 2023-08-29 14:20 | PM.IMPN ---
Progress Note: A&P Assessment and Plan (1) Pneumonia due to 2019-nCoV: Code(s): U07.1 - COVID-19; J12.82 - Pneumonia due to coronavirus disease 2019 Status: Acute Assessment and Plan: Patient is started on Rocephin and Zithromax for antibacterial and typical coverage. Consider remdesivir as needed. Dexamethasone 6 mg daily. Breathing treatments scheduled. (2) Hypokalemia: Code(s): E87.6 - Hypokalemia Status: Acute Assessment and Plan: Replace as needed Add daily potassium (3) GERD (gastroesophageal reflux disease): Code(s): K21.9 - Gastro-esophageal reflux disease without esophagitis Status: Acute Assessment and Plan: On PPI (4) Bipolar II disorder: Code(s): F31.81 - Bipolar II disorder Status: Chronic Assessment and Plan: Patient is on buspirone, fluoxetine, trazodone. (5) Type 2 diabetes mellitus: Qualifiers: Diabetes mellitus extermination supervisor insulin use: with extermination supervisor use Diabetes mellitus complication status: without complication Qualified Code(s): E11.9 - Type 2 diabetes mellitus without complications; Z79.4 - long term care social worker (current) use of insulin Code(s): E11.9 - Type 2 diabetes mellitus without complications Status: Chronic Assessment and Plan: Holding metformin Insulin sliding scale as needed Subjective Date/time seen: 08/29/23 14:20 Interval history: Patient doing well today. She has some mild discomfort with breathing the could be related to CHF or COVID symptoms. She does not appear in acute CHF exacerbation. Plan to continue replace her potassium. Plan to check potassium 1 hour after infusion. She denies chest pain, nausea, vomiting, diarrhea and lower extremity edema. She does have a cough but it is chronic. Exam Narrative: GENERAL: Comfortable, no acute distress HENMT: moist mucous membranes EYES: EOM intact b/l NECK: no lymphadenopathy RESPIRATORY: clear to auscultation CARDIO: RRR GI: soft, nontender, bowel sounds present SKIN: no rashes EXTREMITIES: no edema, redness or tenderness Objective Data Vital Signs Vital Signs: Vital Signs - 24 hr 08/28/23 14:35 08/28/23 15:54 08/28/23 15:57 Temperature 98.6 F Pulse Rate 82 74 Respiratory Rate 20 18 Blood Pressure 149/79 H 173/91 H Pulse Oximetry 98 88 L 96 Oxygen Delivery Nasal Cannula Oxygen Flow Rate 4 08/28/23 16:01 08/28/23 16:06 08/28/23 16:17 Temperature Pulse Rate 71 Respiratory Rate 16 Blood Pressure Pulse Oximetry 92 Oxygen Delivery Room Air Nasal Cannula Oxygen Flow Rate 2 08/28/23 16:27 08/28/23 20:07 08/28/23 21:08 Temperature 97.8 F Pulse Rate 71 87 79 Respiratory Rate 17 19 24 H Blood Pressure 179/85 H Pulse Oximetry 90 94 Oxygen Delivery Oxygen Flow Rate 08/28/23 23:00 08/29/23 00:00 08/28/23 23:30 Temperature Pulse Rate 78 83 Respiratory Rate Blood Pressure Pulse Oximetry 94 Oxygen Delivery Nasal Cannula Oxygen Flow Rate 2 08/28/23 23:30 08/29/23 04:16 08/29/23 04:00 Temperature 97.9 F Pulse Rate 79 67 68 Respiratory Rate 18 18 Blood Pressure 149/82 H Pulse Oximetry 95 Oxygen Delivery Oxygen Flow Rate 08/29/23 05:06 08/29/23 05:18 08/28/23 23:43 Temperature Pulse Rate 66 67 82 Respiratory Rate 18 18 18 Blood Pressure Pulse Oximetry Oxygen Delivery Oxygen Flow Rate 08/29/23 07:47 08/29/23 08:00 08/29/23 08:00 Temperature Pulse Rate 71 67 Respiratory Rate 18 Blood Pressure Pulse Oximetry 95 95 Oxygen Delivery Nasal Cannula Nasal Cannula Oxygen Flow Rate 2 2 08/29/23 13:04 08/29/23 12:00 08/29/23 14:00 Temperature 98.9 F Pulse Rate 67 78 87 Respiratory Rate 16 Blood Pressure 145/64 H Pulse Oximetry 92 Oxygen Delivery Oxygen Flow Rate Intake/Output Intake/Output: Intake & Output 08/26/23
[2023-08-29 14:48] LABS: SARS-CoV-2 RNA PCR Positive (Negative)
[2023-08-29] MEDS: LACTULOSE 20 GM/30 ML UDC PO (15:49)
[2023-08-29 17:06] LABS: Potassium 3.5 mmol/L (3.4-5.0)
[2023-08-29 17:28] LABS: Glucose Point of Care 138 mg/dl (65-105)
[2023-08-29] MEDS: GABAPENTIN 100 MG CAPSULE PO (22:00)
[2023-08-29] MEDS: traZODone HCL 50 MG TABLET 200 MG PO ×2 (22:36)
[2023-08-30] VITALS (12 sets, daily range): BP systolic 134–153; BP diastolic 60–88; PULSE 61–81; RESP 16–18; TEMP 36.1–36.6; O2SAT 94–98
[2023-08-30] MEDS: cefTRIAXone 2 GM/NS 100 ML 2 GM/100 ML BAG IVPB (03:30)
--- NOTE | 2023-08-30 03:57 | PCRCNOTE ---
Patient refused her 0200 mdi due to not wanting to be awakened. RN aware.
[2023-08-30] MEDS: LEVOTHYROXINE SODIUM 25 MCG TABLET PO (04:54)
[2023-08-30] MEDS: AZITHROMYCIN 500 MG/NS 250 ML 500 MG/250 ML BAG 250 MG IVPB (04:54)
[2023-08-30] MEDS: hydrALAZINE HCL 50 MG TABLET PO ×3 (04:54→20:26)
[2023-08-30 05:52] LABS: Basophils Percent Auto 0.2 % (0.2-1.2); Hematocrit 28.8 % (37.0-47.0); Hemoglobin 8.9 g/dL (12.0-15.0); Immature Granulocyte Absolute 0.02 K/mm3 (0.00-0.031); Immature Granulocyte Percent A 0.4 % (0-0.5); Lymphocytes Absolute Auto 0.91 K/mm3 (0.9-3.2); Lymphocytes Percent Auto 20.2 % (18.3-44.2); Mean Corpuscular HGB Conc 30.9 g/dl (32-36); Mean Corpuscular Hemoglobin 29.4 pg (26-34); Mean Platelet Volume 9.2 fl (7.4-10.4); Monocytes Absolute Auto 0.6 K/mm3 (0.1-0.6); Monocytes Percent Auto 13.1 % (2.6-8.5); Neutrophils Percent Auto 66.1 % (45.5-73.1); Platelet Count Result 166 k/mm3 (150-375); Red Blood Count 3.03 M/mm3 (4.2-5.4); Red Cell Distribution Width 14.8 % (11.5-14.5); White Blood Count 4.5 K/mm3 (4.5-10.0)
[2023-08-30 06:02] LABS: Alanine Aminotransferase 28 U/L (6-35); Albumin Level 3.4 g/dL (3.5-5.1); Alkaline Phosphatase 68 U/L (38-126); Anion Gap 9 mmol/L (8-16); Aspartate Amino Transferase 31 U/L (14-36); Bilirubin,Total 0.3 mg/dL (0.2-1.3); Blood Urea Nitrogen 19 mg/dL (7-17); Calcium 8.3 mg/dL (8.4-10.2); Carbon Dioxide 24 mmol/L (22-30); Chloride 106 mmol/L (98-107); Estimated CRCL calculation 35 ml/min; Estimated Glomerular Filt Rate 34; Glucose 105 mg/dL (65-110); Potassium 3.1 mmol/L (3.4-5.0); Sodium 139 mmol/L (137-145)
[2023-08-30] MEDS: ALBUTEROL SULFATE (*SP) AEROSOL 1 PUFF 2 PUFF INHALATION ×3 (08:04→20:33)
[2023-08-30 09:08] LABS: Glucose Point of Care 107 mg/dl (65-105)
[2023-08-30] MEDS: DOCUSATE SODIUM 100 MG CAPSULE PO (10:13)
[2023-08-30] MEDS: FAMOTIDINE 20 MG TABLET 40 MG PO ×2 (10:13→17:25)
[2023-08-30] MEDS: busPIRone HCL 5 MG TABLET 15 MG PO ×2 (10:13→17:25)
[2023-08-30] MEDS: amLODIPine BESYLATE 5 MG TABLET PO (10:13)
[2023-08-30] MEDS: FLUoxetine HCL 20 MG CAPSULE PO (10:13)
[2023-08-30] MEDS: oxyBUTYnin CHLORIDE 5 MG TABLET 10 MG PO (10:13)
[2023-08-30] MEDS: ENOXAPARIN 40 MG/0.4 ML SYRINGE SUB-Q (10:14)
[2023-08-30] MEDS: POTASSIUM CHLORIDE 20 MEQ ER TABLET 40 MEQ PO (10:14)
[2023-08-30] MEDS: POTASSIUM CHLORIDE 20 MEQ ER TABLET PO (10:15)
[2023-08-30] MEDS: atenoloL 50 MG TABLET PO ×3 (10:16→17:24)
--- NOTE | 2023-08-30 11:53 | PC.NURSE ---
OK to DC tele peer hospitalist
[2023-08-30] MEDS: LACTULOSE 20 GM/30 ML UDC PO (12:23)
[2023-08-30 12:46] LABS: Glucose Point of Care 132 mg/dl (65-105)
--- NOTE | 2023-08-30 15:12 | PM.IMPN ---
Progress Note: A&P Assessment and Plan (1) Pneumonia due to 2019-nCoV: Code(s): U07.1 - COVID-19; J12.82 - Pneumonia due to coronavirus disease 2019 Status: Acute Assessment and Plan: Azithromycin and Rocephin decelerated to p.o. azithromycin and Augmentin. Dexamethasone 6 mg daily. Remdesivir was not started due to patient not requiring an increase of oxygen demand. Breathing treatments scheduled. (2) Hypokalemia: Code(s): E87.6 - Hypokalemia Status: Acute Assessment and Plan: Replace as needed Add daily potassium (3) GERD (gastroesophageal reflux disease): Code(s): K21.9 - Gastro-esophageal reflux disease without esophagitis Status: Acute Assessment and Plan: On PPI (4) Bipolar II disorder: Code(s): F31.81 - Bipolar II disorder Status: Chronic Assessment and Plan: Patient is on buspirone, fluoxetine, trazodone. (5) Type 2 diabetes mellitus: Qualifiers: Diabetes mellitus complication status: without complication Diabetes mellitus snf insulin use: with snf use Qualified Code(s): E11.9 - Type 2 diabetes mellitus without complications; Z79.4 - intermediate (current) use of insulin Code(s): E11.9 - Type 2 diabetes mellitus without complications Status: Chronic Assessment and Plan: Holding metformin Insulin sliding scale as needed Subjective Date/time seen: 08/30/23 15:12 Interval history: Patient doing well today but states she is still having some difficulty with shortness of breath. She is on her home O2 settings. If she continues to do well will likely discharge her home tomorrow. She still has cough but is not having any increased oxygen demands. No sputum production thus far. Exam Narrative: GENERAL: Comfortable, no acute distress HENMT: moist mucous membranes EYES: EOM intact b/l NECK: no lymphadenopathy RESPIRATORY: clear to auscultation CARDIO: RRR GI: soft, nontender, bowel sounds present SKIN: no rashes EXTREMITIES: no edema, redness or tenderness Objective Data Vital Signs Vital Signs: Vital Signs - 24 hr 08/29/23 16:00 08/29/23 17:30 08/29/23 22:00 Temperature 97.7 F Pulse Rate 77 77 72 Respiratory Rate 18 Blood Pressure 140/79 Pulse Oximetry 95 Oxygen Delivery Oxygen Flow Rate 08/29/23 20:00 08/30/23 00:00 08/29/23 21:40 Temperature Pulse Rate 69 61 Respiratory Rate Blood Pressure Pulse Oximetry 95 Oxygen Delivery Nasal Cannula Oxygen Flow Rate 2 08/30/23 04:43 08/30/23 04:00 08/30/23 08:05 Temperature 97 F L Pulse Rate 67 65 Respiratory Rate 16 Blood Pressure 150/71 H Pulse Oximetry 98 95 Oxygen Delivery Nasal Cannula Oxygen Flow Rate 2 08/30/23 10:16 08/30/23 08:00 08/30/23 13:27 Temperature Pulse Rate 74 77 81 Respiratory Rate 16 Blood Pressure 153/88 H Pulse Oximetry 94 Oxygen Delivery Oxygen Flow Rate 08/30/23 13:29 Temperature Pulse Rate 81 Respiratory Rate Blood Pressure Pulse Oximetry Oxygen Delivery Oxygen Flow Rate Intake/Output Intake/Output: Intake & Output 08/27/23 08/28/23 08/29/23 08/30/23 23:59 23:59 23:59 23:59 Intake Total 5000 1100 Balance 5000 1100 Meds/Results Medications: Active Medications Generic Name Dose Route Start Last Admin Trade Name Freq PRN Reason Stop Dose Admin Acetaminophen 650 mg 08/28/23 18:07 Acetaminophen 325 Mg Tablet PO Q4H PRN Mild Pain (1-3) or Fever Hydrocodone Bitart/Acetaminophen 1 tab 08/29/23 02:32 08/29/23 17:32 Hydrocodone/Acetaminophen (*Crx) 5-325 Mg Tablet PO 1 tab Q4H PRN Administration Pain (Scale Score 4-6) Albuterol 2 puff 08/29/23 08:00 08/30/23 14:10 Albuterol Sulfate (*Sp) Aerosol 1 Puff INHALATION 2 puff Q6HRT DONG Administration Amlodipine Besylate 5 mg 08/29/23 09:00 08/30/23 1
[2023-08-30 17:36] LABS: Glucose Point of Care 137 mg/dl (65-105)
[2023-08-30] MEDS: GABAPENTIN 100 MG CAPSULE PO (20:26)
[2023-08-30] MEDS: FLUoxetine HCL 10 MG CAPSULE 30 MG PO (20:26)
[2023-08-30] MEDS: traZODone HCL 50 MG TABLET 200 MG PO (20:26)
[2023-08-30] MEDS: AMOXICILLIN/CLAVULANATE K 875-125 MG TAB 1 TABLET PO (20:27)
[2023-08-30 21:51] LABS: Glucose Point of Care 158 mg/dl (65-105)
[2023-08-31] MEDS: ALBUTEROL SULFATE (*SP) AEROSOL 1 PUFF 2 PUFF INHALATION ×2 (03:12→06:24)
[2023-08-31 04:59] VITALS: BP 157/84; PULSE 60; RESP 18; TEMP 36.4; O2SAT 96
[2023-08-31] MEDS: LEVOTHYROXINE SODIUM 25 MCG TABLET PO (05:22)
[2023-08-31] MEDS: hydrALAZINE HCL 50 MG TABLET PO (05:22)
[2023-08-31 05:30] LABS: Hematocrit 31.5 % (37.0-47.0); Hemoglobin 9.8 g/dL (12.0-15.0); Mean Corpuscular HGB Conc 31.1 g/dl (32-36); Mean Corpuscular Hemoglobin 29.2 pg (26-34); Mean Corpuscular Volume 93.8 fl (80-100); Mean Platelet Volume 9.4 fl (7.4-10.4); Platelet Count Result 203 k/mm3 (150-375); Red Blood Count 3.36 M/mm3 (4.2-5.4); Red Cell Distribution Width 14.6 % (11.5-14.5)
[2023-08-31 05:48] LABS: Anion Gap 8 mmol/L (8-16); Blood Urea Nitrogen 25 mg/dL (7-17); Calcium 8.7 mg/dL (8.4-10.2); Carbon Dioxide 23 mmol/L (22-30); Chloride 108 mmol/L (98-107); Estimated CRCL calculation 38 ml/min; Estimated Glomerular Filt Rate 37; Glucose 107 mg/dL (65-110); Sodium 139 mmol/L (137-145)
[2023-08-31 08:01] VITALS: O2SAT 96
[2023-08-31 08:35] LABS: Glucose Point of Care 94 mg/dl (65-105)
[2023-08-31] MEDS: POTASSIUM CHLORIDE 20 MEQ ER TABLET PO (09:21)
[2023-08-31] MEDS: ENOXAPARIN 40 MG/0.4 ML SYRINGE SUB-Q (09:21)
[2023-08-31 09:22] VITALS: PULSE 68
[2023-08-31] MEDS: atenoloL 50 MG TABLET PO (09:22)
[2023-08-31] MEDS: FAMOTIDINE 20 MG TABLET 40 MG PO (09:22)
[2023-08-31] MEDS: FLUoxetine HCL 20 MG CAPSULE PO (09:22)
[2023-08-31] MEDS: AMOXICILLIN/CLAVULANATE K 875-125 MG TAB 1 TABLET PO (09:22)
[2023-08-31] MEDS: oxyBUTYnin CHLORIDE 5 MG TABLET 10 MG PO (09:22)
[2023-08-31] MEDS: amLODIPine BESYLATE 5 MG TABLET PO (09:22)
[2023-08-31] MEDS: busPIRone HCL 5 MG TABLET 15 MG PO (09:22)
[2023-08-31] MEDS: DOCUSATE SODIUM 100 MG CAPSULE PO (09:22)
[2023-08-31] MEDS: AZITHROMYCIN 250 MG TABLET PO (09:34)
--- NOTE | 2023-08-31 10:47 | PM.DS ---
DS: Admitting Diagnosis Discharge Date 08/31/23 Admitting Diagnosis COVID-19 DS: Discharge Diagnosis Discharge Diagnosis (1) Pneumonia due to 2019-nCoV: Code(s): U07.1 - COVID-19; J12.82 - Pneumonia due to coronavirus disease 2019 Status: Acute (2) Hypokalemia: Code(s): E87.6 - Hypokalemia Status: Acute (3) GERD (gastroesophageal reflux disease): Code(s): K21.9 - Gastro-esophageal reflux disease without esophagitis Status: Acute (4) Bipolar II disorder: Code(s): F31.81 - Bipolar II disorder Status: Chronic (5) Type 2 diabetes mellitus: Qualifiers: Diabetes mellitus manager terminal insulin use: with manager terminal use Diabetes mellitus complication status: without complication Qualified Code(s): E11.9 - Type 2 diabetes mellitus without complications; Z79.4 - half-way (current) use of insulin Code(s): E11.9 - Type 2 diabetes mellitus without complications Status: Chronic DS: Summary Hospital Course Hospital Course: This is a 73-year-old female with past medical history of COPD/asthma, hypertension, anxiety, neuropathy, diabetes, hypertension, hypothyroidism, bipolar disorder GERD the presents to the ED on 08/28/2023 due to body aches, chills, poor appetite, cough, shortness of breath and fever. She tested positive for COVID-19 on 08/27/2023 and her symptoms began the next day. Patient wears 2 L of oxygen at night although it is prescribed to be worn 24/7 she is only compliant at night. She did not require any increased oxygen demand thus remdesivir was not started. She was started on dexamethasone due to her history of COPD. chest x-ray suspicious for pneumonia and she was started on Rocephin and azithromycin. Upon arrival she was also found to have hypokalemia with a potassium of 2.5. Potassium was replaced as necessary. Patient does take Lasix daily and would benefit from a daily potassium replacement. advised that she follow-up with labs in approximately 1 week. Patient's cough and shortness of breath improved during hospital stay. Labs and vital signs are stable and she is medically clear for discharge at this time. Time Spent with Patient Time attestation: Total time spent providing and/or coordinating discharge services: Exam Narrative: GENERAL: Comfortable, no acute distress HENNJ: moist mucous membranes EYES: EOM intact b/l NECK: no lymphadenopathy RESPIRATORY: clear to auscultation CARDIO: RRR GI: soft, nontender, bowel sounds present SKIN: no rashes EXTREMITIES: no edema, redness or tenderness DS: Data Data Completed and Pending Labs on day of discharge: Labs from last 24 hours 08/31/23 08/31/23 08/30/23 08:32 05:23 20:25 WBC 5.0 RBC 3.36 L Hgb 9.8 L Hct 31.5 L MCV 93.8 MCH 29.2 MCHC 31.1 L RDW 14.6 H Plt Count 203 MPV 9.4 Sodium 139 Potassium 4.0 Chloride 108 H Carbon Dioxide 23 Anion Gap 8 BUN 25 H Creatinine 1.40 H Estim Creat Clear Calc 38 Estimated GFR 37 L Glucose 107 POC Capillary Glucose 94 158 H Calcium 8.7 08/30/23 08/30/23 17:30 12:44 WBC RBC Hgb Hct MCV MCH MCHC RDW Plt Count MPV Sodium Potassium Chloride Carbon Dioxide Anion Gap BUN Creatinine Estim Creat Clear Calc Estimated GFR Glucose POC Capillary Glucose 137 H 132 H Calcium Discharge Plan Discharge Attending physician on discharge: Skip Morfin Discharging Clinician: Aileen Melendez Patient Disposition: NH Detention/Asst Living Activity: as tolerated Diet: heart healthy Discharge Instructions: Take all medications as prescribed even if feeling better Remember to stay quarantined 09/02/2023 Wear a mask in public, and stay away from large crowds Eat well balanced meals and stay hydrated Keep active, but do not over do it No running marathons, riding your bike, or any other activity t
--- NOTE | 2023-08-31 11:28 | PC.NURSE ---
Rn Home Health spoke with the patients daughter, Jing to inform her of patients plan to take a cab at discharge. The daughter agreed with that plan. Rn Home Health gave patient instructions to apple picker prescriptions at [facility] before returning to [place].
[2023-08-31 12:25] LABS: Glucose Point of Care 139 mg/dl (65-105)
== END 2023-08-31 14:00 | DRG 137 ==
LOC: ANHED 18:12 → ANH3MED 20:36
PROVIDERS: Admitting Provider Hospitalist; Emergency Provider Emergency Medicine; PCP Internal Medicine; Visit Provider Internal Medicine Critical Care Medicine
DX: U07.1 COVID-19 (principal); J12.82 Pneumonia due to coronavirus disease 2019; E11.42 Type 2 diabetes mellitus with diabetic polyneuropathy; R09.02 Hypoxemia; E87.6 Hypokalemia; K21.9 Gastro-esophageal reflux disease without esophagitis; F31.81 Bipolar II disorder; J44.0 Chronic obstructive pulmonary disease with (acute) lower respiratory infection; F41.9 Anxiety disorder, unspecified; E03.9 Hypothyroidism, unspecified; I10 Essential (primary) hypertension; F20.9 Schizophrenia, unspecified; E66.9 Obesity, unspecified; E78.5 Hyperlipidemia, unspecified; K44.9 Diaphragmatic hernia without obstruction or gangrene; K58.1 Irritable bowel syndrome with constipation; E88.810 Metabolic syndrome; Z79.4 Long term (current) use of insulin; Z68.30 Body mass index [BMI] 30.0-30.9, adult; Z86.718 Personal history of other venous thrombosis and embolism
CPT/HCPCS: 36415; 71045; 80048; 80053; 82607; 82728; 82746; 82948; 83540; 83550; 83880; 84132; 84466; 85025; 85027; 85610; 85730; 87635; 94640; 99285; A9270; J0456; J0696; J1100; J1650; J1940; J2270; J3480; J7040

== ENCOUNTER 2023-11-12 12:09 | Outpatient (CLI) | payer OTHER, SELFPAY ==
--- NOTE | 2023-11-12 16:10 | WPDPFTINT ---
PFT Procedure Performed PFT Procedure Performed Plethysmography (Lung Vol) Diffusing Cap (DLCO) Flow Vol Loop Spirometry w/o Bronchodil PFT Interpretation Lung volumes were measured with the body plethysmography method. The diminished lung volumes are indicative of restrictive respiratory disease. Spirometry showed normal expiratory flow rates and a normal FEV1 to FVC ratio of 87%. No post bronchodilator study carried out. Lung diffusion capacity was moderately reduced at 50% predicted. The diminished lung diffusion capacity paired with a normal alveolar volume, as calculated by the DLCO/VA ratio, could be related to a pulmonary vascular abnormality such as pulmonary hypertension, or anemia. Clinical correlation advised. Impression: Mild restrictive respiratory disease. Moderately reduced lung diffusion capacity. Pulmonary function tests were interpreted according to the ERS/ATS recommendations published in 2021. Pulmonary Function Tests (PFTs) play a crucial role in evaluating respiratory function and offering insights into respiratory physiology. However, they may not always accurately diagnose specific clinical conditions. Similarly, normal PFT results do not necessarily rule out the presence of a lung disease or condition. Therefore, the diagnostic utility of PFTs should be approached with caution, as the results in isolation do not yield absolute determinations.
== END 2023-11-12 12:10 | disposition home or self-care (01) ==
LOC: ANHPFT 12:09
PROVIDERS: PCP Internal Medicine; Visit Provider Internal Medicine Cardiovascular Disease
DX: I27.20 Pulmonary hypertension, unspecified (principal); R06.02 Shortness of breath; R94.2 Abnormal results of pulmonary function studies
CPT/HCPCS: 94375; 94726; 94729

== ENCOUNTER 2024-01-15 12:07 | Outpatient (CLI) | payer OTHER, SELFPAY ==
--- NOTE | ~2024-01-15 | NM_ITS ---
NM lung vent and perfusion INDICATION: Dyspnea TECHNIQUE: The patient inhaled aerosolized 10 mCi xenon-133. Following ventilation scan, 5. mCi Tc 9 9m MAA was injected intravenously for perfusion images. Multiple images were then acquired. COMPARISON: Chest x-ray dated 01/15/2024 FINDINGS: The comparison chest radiograph demonstrates no pulmonary infiltrates or pleural fluid. Th e perfusion scan is normal. The aerosol in images show uniform deposition throughout the lungs. IMPRESSION: 1: Normal ventilation and perfusion images. Reviewed, dictated and finalized at location L.
--- NOTE | ~2024-01-15 | XR_ITS ---
EXAMINATION: XR chest 2V 01/15/2024 12:32 INDICATION: Pulmonary hypertension. Shortness of breath with exertion. PROCEDURE: PA and lateral views the chest COMPARISON: No prior studies for comparison. FINDINGS: The lungs are clear. The cardiomediastinal silhouette is within normal limits. There are no pleural effusions. There is no pneumothorax suspected. Large hiatal hernia. IMPRESSION: 1: NO ACUTE CARDIOPULMONARY DISEASE. Reviewed, dictated and finalized at location B.
== END 2024-01-15 12:08 | disposition home or self-care (01) ==
PROVIDERS: PCP Internal Medicine; Visit Provider Internal Medicine Pulmonary Disease
DX: J98.4 Other disorders of lung (principal); I27.20 Pulmonary hypertension, unspecified
CPT/HCPCS: 71046; 78582; A9540; A9558

== ENCOUNTER 2024-01-16 12:11 | Outpatient (CLI) | payer OTHER, SELFPAY ==
[2024-01-16 13:00] VITALS: PULSE 72; O2SAT 94
[2024-01-16 13:05] VITALS: PULSE 96; O2SAT 87
[2024-01-16 13:06] VITALS: O2SAT 88
[2024-01-16 13:07] VITALS: PULSE 92; O2SAT 92
[2024-01-16 13:15] VITALS: PULSE 78; O2SAT 93
--- NOTE | 2024-01-16 15:06 | HOMEO2EVAL ---
Evaluation was performed at [facility] Home Oxygen Evaluation RC: Home Oxygen (O2) Evaluation Start: 01/16/24 14:52 Freq: Status: Active Protocol: RPE Activity Type Activity Date Activity User E-sign Co-sign Detail Recorded Client Recorded Date Recorded By Document 01/16/24 13:00 ZULEMA [email or web address] 01/16/24 15:06 ZULEMA Document 01/16/24 13:05 ZULEMA [email or web address] 01/16/24 15:06 ZULEMA Document 01/16/24 13:06 ZULEMA [email or web address] 01/16/24 15:06 ZULEMA Document 01/16/24 13:07 ZULEMA [email or web address] 01/16/24 15:06 ZULEMA Document 01/16/24 13:15 ZULEMA [email or web address] 01/16/24 15:06 ZULEMA 01/16/24 01/16/24 01/16/24 13:00 13:05 13:06 Home O2 Evaluation [Oxygen] -Test Phase Resting Exercise Exercise -Oxygen Delivery Room Air Room Air Nasal Cannula -Oxygen Flow Rate (L/min) 1 [Pulse Oximetry] -Pulse Oximetry (90-100 %) 94 87 L 88 L [Pulse Rate] -Pulse Rate (60-100 beats/min) 72 96 [Comments] -Home Oxygen Evaluation Comments [Charges] -Evaluation Charges O2 Evaluation by Pulmonary 01/16/24 01/16/24 13:07 13:15 Home O2 Evaluation [Oxygen] -Test Phase Exercise Resting -Oxygen Delivery Nasal Cannula Room Air -Oxygen Flow Rate (L/min) 2 [Pulse Oximetry] -Pulse Oximetry (90-100 %) 92 93 [Pulse Rate] -Pulse Rate (60-100 beats/min) 92 78 [Comments] -Home Oxygen Evaluation Comments Pt requires 2 L home o2 with activity/ exertion [Charges] -Evaluation Charges
--- NOTE | 2024-01-16 15:07 | PCRCNOTE ---
Home O2 eval faxed to office staff
--- NOTE | 2024-01-16 15:07 | PCRCNOTE ---
Pt refused ABG
== END 2024-01-16 12:12 | disposition home or self-care (01) ==
LOC: ANHPFT 12:12
PROVIDERS: PCP Internal Medicine; Visit Provider Internal Medicine Pulmonary Disease
DX: J98.4 Other disorders of lung (principal)
CPT/HCPCS: 94618

== ENCOUNTER 2024-01-21 13:03 | Outpatient (CLI) | payer OTHER, SELFPAY ==
--- NOTE | ~2024-01-21 | CT_ITS ---
CT Scan of the Chest without Contrast: Clinical Indication: Disorder of lung Technique: Contiguous sections were acquired throughout the chest without intravenous contrast. Dose reduction technique was used on this scan by utilizing automated exposure control and iterative recon struction technique. The dose-length product (DLP) was 560.26 mGy-cm. COMPARISON: 01/23/2022 Findings: Single mildly enlarged AP window lymph node measures 12 mm in short axis (axial image 47). Additional shotty lymph nodes are not frankly enlarged, and are similar to prior exam otherwise. No aortic aneu rysm. Moderate to large hiatal hernia present. There is no evidence of pleural or pericardial effusion. Stable vague groundglass opacity in the peripheral left upper lobe. Probable mild emphysema. Images through the upper abdomen reveal no abnormalities. Chronic severe L1 compression fracture note d, unchanged. Impression: Stable vague groundglass opacity in the left upper lobe. Stability over this time interval suggests b enignity. Minimal emphysema. Mildly mediastinal lymphadenopathy, as above, nonspecific, though likely reactive/chronic in nature. Moderate to large hiatal hernia. Reviewed, dictated and finalized at location . Impression: Stable vague groundglass opacity in the left upper lobe. Stability over this ti me interval suggests benignity. Minimal emphysema. Mildly mediastinal lymphadenopathy, as above, nonspecific, though likely reacti ve/chronic in nature. Moderate to large hiatal hernia.
== END 2024-01-21 13:04 | disposition home or self-care (01) ==
PROVIDERS: PCP Internal Medicine; Visit Provider Internal Medicine Pulmonary Disease
DX: J98.4 Other disorders of lung (principal); K44.9 Diaphragmatic hernia without obstruction or gangrene
CPT/HCPCS: 71250

== ENCOUNTER 2024-02-25 15:54 | Observation (INO) | payer OTHER, SELFPAY ==
[2024-02-25] VITALS (10 sets, daily range): BP systolic 168–182; BP diastolic 81–87; PULSE 63–85; RESP 17–27; TEMP 37.3; O2SAT 96–100
--- NOTE | ~2024-02-25 | NM_ITS ---
EXAMINATION: NM cherry stress w perfusion DATE: 02/26/2024 11:58 INDICATION: Chest pain. TECHNIQUE: Rest images were obtained following intravenous administration of 9.7 mCi Tc99m tetrofosmi n (Myoview). The patient was infused intravenously with Lexiscan (regadenoson). Then, 33 mCi Tc99m te trofosmin (Myoview) was administered intravenously, and stress images were obtained. Data was reconst ructed into short axis and horizontal and vertical long axis SPECT images. Gated SPECT images were al so obtained. COMPARISON: Myocardial perfusion imaging 07/08/2015 FINDINGS: There is no definite reversible or fixed perfusion abnormality to suggest ischemia or infar ction. There is no segmental wall motion abnormality. Left ventricular ejection fraction measures 6 2%. IMPRESSION: 1. No definite ischemia or infarct. 2. Normal left ventricular ejection fraction measuring 62%. Reviewed, dictated and finalized at location A.
--- NOTE | ~2024-02-25 | XR_ITS ---
EXAMINATION: XR chest 2V DATE: 02/25/2024 16:28 INDICATION: Chest pain and dizziness TECHNIQUE: PA and lateral views of the chest were obtained. COMPARISON: Chest radiograph dated 01/15/[address] dated 01/21/2024 FINDINGS: Hyperexpansion lungs consistent with mild emphysema better appreciated on prior CT. No focal airspace opacities, pulmonary edema, pleural effusion or pneumothorax. Heart size is normal. Retrocardiac opa city corresponding to a moderate to large sliding-type hiatal hernia. Mild thoracic spondylosis with chronic mild anterior wedging of a couple mid thoracic vertebral bodies. IMPRESSION: 1. Mild emphysema. No acute cardiopulmonary disease. 2. Moderate to large hiatal hernia. Reviewed, dictated and finalized at location A.
--- NOTE | 2024-02-25 16:02 | ECG_ITS ---
SEE SCANNED COPY FOR CONFIRMED REPORT MTDD
[2024-02-25 16:35] LABS: Basophils Absolute Auto 0.1 K/mm3 (0.0-0.1); Basophils Percent Auto 0.6 % (0.2-1.2); Eosinophils Absolute Auto 0.1 K/mm3 (0-0.3); Eosinophils Percent Auto 1.6 % (0-4.4); Hematocrit 37.7 % (37.0-47.0); Hemoglobin 11.9 g/dL (12.0-15.0); Immature Granulocyte Absolute 0.06 K/mm3 (0.00-0.031); Immature Granulocyte Percent A 0.7 % (0-0.5); Lymphocytes Absolute Auto 1.67 K/mm3 (0.9-3.2); Lymphocytes Percent Auto 19.5 % (18.3-44.2); Mean Corpuscular HGB Conc 31.6 g/dl (32-36); Mean Corpuscular Hemoglobin 28.3 pg (26-34); Mean Corpuscular Volume 89.8 fl (80-100); Mean Platelet Volume 9.3 fl (7.4-10.4); Monocytes Absolute Auto 0.7 K/mm3 (0.1-0.6); Monocytes Percent Auto 7.8 % (2.6-8.5); Neutrophils Percent Auto 69.8 % (45.5-73.1); Platelet Count Result 281 k/mm3 (150-375); Red Cell Distribution Width 15.7 % (11.5-14.5); White Blood Count 8.6 K/mm3 (4.5-10.0)
--- NOTE | 2024-02-25 16:36 | ED.CHESTPAIN ---
HPI - Chest Pain General Chief Complaint: Chest Pain Stated Complaint: CP Time Seen by Provider: 02/25/24 16:27 History of Present Illness HPI narrative: Patient is a 73-year-old female with history of CHF, HTN here with chest pain. She states that she was in the bathroom brushing her hair at her assisted living facility when she began to feel suddenly short of breath, having chest pain and lightheadedness. Chest pain was 8/10, located midsternally an radiated into her bilateral shoulder blades. She did receive nitroglycerin from EMS and the pain is now gone. She does note that she uses occasional oxygen as needed and at night. Currently denies any shortness of breath. No recent cough, congestion, fever, chills. No sick contacts. She notes that she did have a prior stress test several years ago, no prior cardiac catheterization, no known history of IN. Related Data Home Medications Medication Instructions Recorded Confirmed albuterol sulfate 90 mcg/actuation 2 puff inhalation Q4H PRN 06/06/20 01/06/24 aerosol inhaler Shortness Of Breath amlodipine 5 mg tablet 5 mg PO DAILY 06/06/20 01/06/24 fluoxetine 10 mg capsule 30 mg PO HS 06/06/20 01/06/24 fluticasone furoate 50 1 inh inhalation BID 06/06/20 01/06/24 mcg/actuation blister powder for inhalation hydralazine 50 mg tablet 50 mg PO TID 06/06/20 01/06/24 oxybutynin chloride 5 mg tablet 10 mg PO DAILY 06/06/20 01/06/24 pravastatin 40 mg tablet 40 mg PO HS 06/06/20 01/06/24 atenolol 50 mg tablet 50 mg PO TID 01/31/21 01/06/24 buspirone 15 mg tablet 15 mg PO BID 01/31/21 01/06/24 levothyroxine 25 mcg tablet 25 mcg PO DAILY 01/31/21 01/06/24 trazodone 100 mg tablet 200 mg PO QHS 01/31/21 01/06/24 gabapentin 100 mg capsule 100 mg PO HS 03/11/23 01/06/24 hydrocodone 5 mg-acetaminophen 325 1 tablet PO Q4H PRN Pain (Scale 03/11/23 01/06/24 mg tablet Score 4-6) hydroxyzine pamoate 25 mg capsule 25 mg PO HS PRN Sleep 03/11/23 01/06/24 lisinopril 10 mg tablet 10 mg PO DAILY 03/11/23 01/06/24 calcium carbonate 1,000 mg PO PRN PRN Indigestion 04/30/23 01/06/24 fluoxetine 20 mg capsule 20 mg PO BID 04/30/23 01/06/24 docusate sodium 100 mg capsule 100 mg PO DAILY 08/28/23 01/06/24 furosemide 20 mg tablet 20 mg PO DAILY 08/28/23 01/06/24 metformin 500 mg tablet 500 mg PO DAILY 08/28/23 01/06/24 vitamin B complex 1 cap PO DAILY 08/28/23 01/06/24 Allergies Allergy/AdvReac Type Severity Reaction Status Date / Time aspirin Allergy Unknown Unknown Verified 01/06/24 09:41 erythromycin base Allergy Vomiting Verified 01/06/24 09:41 [From Erythrocin] Review of Systems Review of Systems: All systems reviewed & are unremarkable except as noted in HPI and below PMFSH Past Medical History Medical History Anxiety Bipolar II disorder Chronic anemia Effusion of knee joint right Essential hypertension Fracture Including fractures of the pelvis, right wrist, foot, and ankle. Gastroesophageal reflux disease Hiatal hernia History of deep venous thrombosis Hyperlipemia Hypothyroidism Irritable bowel syndrome with constipation Metabolic syndrome Mixed anxiety and depressive disorder Multiple nodules of lung Obese Recurrent urinary tract infection Right knee DJD Right knee pain Schizophrenia Type 2 diabetes mellitus Hemoglobin A1c was 6.8% in September 2019. Surgical History Surgical History History of section History of tubal ligation Family History Family History Grandparent Hypertension Father Diabetes mellitus Family history of alcoholism Family history of arthritis Family history of mental disorder Hypertension Mother Family history of arthritis Hypertension Daughter Family history of malignant neoplasm Other Family history of blood dyscrasia Social History Social History (Reviewe
[2024-02-25 16:45] LABS: Alanine Aminotransferase 26 U/L (6-35); Albumin Level 4.5 g/dL (3.5-5.1); Alkaline Phosphatase 98 U/L (38-126); Anion Gap 8 mmol/L (4-12); Aspartate Amino Transferase 42 U/L (14-36); Bilirubin,Total 0.5 mg/dL (0.2-1.3); Blood Urea Nitrogen 17 mg/dL (7-17); Calcium 9.3 mg/dL (8.4-10.2); Carbon Dioxide 24 mmol/L (22-30); Chloride 103 mmol/L (98-107); Estimated CRCL calculation 36 ml/min; Estimated Glomerular Filt Rate 37; Glucose 103 mg/dL (65-110); Lipase 79 U/L (23-300); Sodium 135 mmol/L (137-145)
[2024-02-25 16:56] LABS: Partial Thromboplastin Time 28.4 Seconds (22.3-36.8); Prothrombin Time 13.9 Seconds (11.1-14.7); Troponin I < 0.012 ng/mL (0.000-0.034)
[2024-02-25 18:01] LABS: D Dimer 0.45 ug/mL (<0.48)
[2024-02-25 18:03] LABS: NT Pro B Type Natriuretic Pept 2040 pg/mL (19.9-100)
[2024-02-25 19:37] LABS: Troponin I < 0.012 ng/mL (0.000-0.034)
--- NOTE | 2024-02-25 21:50 | PC.NURSE ---
patient is refusing to keep cords on for continuous vital monitoring. attempting to spot check vitals on a regular basis
--- NOTE | 2024-02-25 23:11 | PC.NURSE ---
care and report given to DAISY Archer. all questions answered.
[2024-02-26] VITALS (12 sets, daily range): BP systolic 144–183; BP diastolic 54–94; PULSE 65–82; RESP 15–22; TEMP 36.3; O2SAT 96–100; BMI 31.6
--- NOTE | 2024-02-26 | EST_ITS ---
Patient Info Name: Marcela Rayo Age: 73 years : 1950 Gender: Female Ht: 66 in Wt: 185 lbs BSA: 2.00 m2 HR: 73 bpm BP: 142 / 70 mmHg Heart Rhythm: Sinus Rhythm Exam Date: 02/26/2024 10:39 AM Exam Location: Echo Lab Patient Status: Outpatient Admit Date: 02/25/2024 Staff Ordering Physician: Rayne Hernandez MD Attending Provider: Triny Oakley DO Exercise Technologist: Patria Fitch CT Exercise Physician: Bro Cain MD Exam Type: CA stress cherry w NM Study Info Indications R07.89 - Other chest pain A regadenoson stress test was performed. Summary 1. Please correlate with nuclear medicine images, reported separately. 2. No abnormal ST-T wave changes with lexiscan. 3. Interpreting and Supervising physician is Bro Cain MD. Protocol: Lexiscan Stress ECG Details Stage: REST Duration (min): 1 min : 12 sec HR (bpm): 73 SBP (mmHg): 142 DBP (mmHg): 70 Stage: REST Duration (min): 28 min : 34 sec HR (bpm): 72 SBP (mmHg): 142 DBP (mmHg): 70 Stage: STAGE 1 Duration (min): 0 min : 59 sec HR (bpm): 80 SBP (mmHg): 163 DBP (mmHg): 69 Stage: RECOVERY Duration (min): 1 min : 0 sec HR (bpm): 83 SBP (mmHg): 163 DBP (mmHg): 69 Stage: RECOVERY Duration (min): 2 min : 0 sec HR (bpm): 83 SBP (mmHg): 163 DBP (mmHg): 69 Stage: RECOVERY Duration (min): 3 min : 0 sec HR (bpm): 82 SBP (mmHg): 163 DBP (mmHg): 69 Stage: RECOVERY Duration (min): 3 min : 26 sec HR (bpm): 78 SBP (mmHg): 139 DBP (mmHg): 55 Rest HR: 72 bpm Peak HR: 85 bpm Rest Sys BP: 142 mmHg Peak Sys BP: 163 mmHg Max Pred HR: 149 bpm % Max Pred HR: 57 % Target HR: 127 bpm Max RPP: 13,855 bpm*mmHg Target HR Summary: Hemodynamic response to exercise was normal BP Response: Normal blood pressure response Termination Reason: Completed protocol Cardiac Symptoms: None Total Time: 1 min : 0 sec Rest Simmons BP: 70 mmHg Peak Simmons BP: 69 mmHg Total Dose: 0.4 mg Resting ECG Normal sinus rhythm. PAC. Stress ECG No abnormal ST/T wave changes with exercise. Arrhythmias None. Report Signatures
[2024-02-26 02:46] LABS: Troponin I < 0.012 ng/mL (0.000-0.034)
--- NOTE | 2024-02-26 07:25 | PC.NURSE ---
Cardiology called to notify they plan to come get the patient or her stress test at aprox 1000. Pt aware to remain NPO.
--- NOTE | 2024-02-26 08:01 | PM.IMHP ---
H&P: HPI History of Present Illness Date/Time: 02/26/24 08:01 Chief Complaint: chest pain Narrative: 73-year-old female with history of CHF, HTN , hypothyroidism, diabetes, anxiety? presented to ED with a chief complaint of chest pain.? patient had a sudden onset shortness breath, chest pain, lightheadedness when patient was in the bathroom brushing her hair. EMS was called, patient received nitroglycerin, and patient was brought to for evaluation treatment. Patient need oxygen at night occasionally.. Upon arrival in the ED, patient temperature 99.2?, uncontrolled blood pressure 182/81, BNP 2040, CXR does not show evidence of fluid overload, O2 saturation 100% on room air. BUN 17 creatinine 1.4 troponin pending, EKG shows sinus rhythm no specific ST-T changes Review of Systems Review of Systems: ROS negative except above PMFSH Past Medical History Medical History (Updated 02/26/24 @ 15:49 by Keiko Darling MD) Anxiety Bipolar II disorder Chronic anemia Effusion of knee joint right Essential hypertension Fracture Including fractures of the pelvis, right wrist, foot, and ankle. Gastroesophageal reflux disease Hiatal hernia History of deep venous thrombosis Hyperlipemia Hypothyroidism Irritable bowel syndrome with constipation Metabolic syndrome Mixed anxiety and depressive disorder Multiple nodules of lung Obese Recurrent urinary tract infection Right knee DJD Right knee pain Schizophrenia Type 2 diabetes mellitus Hemoglobin A1c was 6.8% in September 2019. Surgical History Surgical History History of section History of tubal ligation Family History Family History Grandparent Hypertension Father Diabetes mellitus Family history of alcoholism Family history of arthritis Family history of mental disorder Hypertension Mother Family history of arthritis Hypertension Daughter Family history of malignant neoplasm Other Family history of blood dyscrasia Social History Social History Social History: The patient is a resident of [facility]. Lifelong nonsmoker. No alcohol or illicit substance use. Her daughter Jing Marinelli is her healthcare power of deputy county attorney and she wishes to be a full code. Smoking status: Never smoker Second hand tobacco smoke exposure: No Alcohol intake: never Substance use: never Do You Feel Safe in your Home?: Yes Lack of Transportation: No Lack of Food: Never True Current Housing: I Have Housing Concerned About Future Housing: No Difficulty Paying Gas/Electric Bills: No Difficulty Paying for Meds: No Currently Unemployed: No Education: High School Diploma/GED Difficulty w/ Childcare or Family Care: No Gender identity (if verbalized by the patient): Female Spiritual care concerns: No Meds Home Medications and Allergies Home Medications Medication Instructions Recorded Confirmed Type albuterol sulfate 90 mcg/actuation 2 puff inhalation Q4-6H PRN 06/06/20 02/26/24 History aerosol inhaler Wheezing amlodipine 5 mg tablet 5 mg PO DAILY 06/06/20 02/26/24 History fluoxetine 10 mg capsule 30 mg PO HS 06/06/20 02/26/24 History fluticasone furoate 50 1 inh inhalation BID 06/06/20 02/26/24 History mcg/actuation blister powder for inhalation hydralazine 50 mg tablet 50 mg PO TID 06/06/20 02/26/24 History oxybutynin chloride 5 mg tablet 10 mg PO DAILY 06/06/20 02/26/24 History pravastatin 40 mg tablet 40 mg PO HS 06/06/20 02/26/24 History atenolol 50 mg tablet 50 mg PO TID 01/31/21 02/26/24 History buspirone 15 mg tablet 15 mg PO BID 01/31/21 02/26/24 History levothyroxine 25 mcg tablet 25 mcg PO DAILY 01/31/21 02/26/24 History trazodone 100 mg tablet 200 mg PO QHS 01/31/21 02/26/24 History gabapentin 100 mg capsule 100 mg PO HS 03/11/23 02/26/24 History hydrox
[2024-02-26] MEDS: ASPIRIN 81 MG CHEWABLE TABLET 324 MG PO (08:34)
[2024-02-26 09:15] LABS: Cholesterol 132 mg/dL (0-200); HDL Direct 41 mg/dL; Triglycerides 213 mg/dL (<150)
[2024-02-26] MEDS: ENOXAPARIN 40 MG/0.4 ML SYRINGE SUB-Q (09:17)
[2024-02-26 09:24] LABS: LDL Cholesterol Direct 70 mg/dL
--- NOTE | 2024-02-26 09:37 | PC.NURSE ---
Per [facility] Dr Dawson, pt is to be given 20mg IVP Hydralazine for HTN, give additional 10mg qh if BP reading is 170 systolic, 100 diastolic.
[2024-02-26] MEDS: hydrALAZINE HCL 20 MG/ML VIAL IV PUSH (09:40)
--- NOTE | 2024-02-26 10:27 | PC.NURSE ---
Pt currently having stress test done.
--- NOTE | 2024-02-26 11:45 | PC.NURSE ---
corinna called and ordered a lunch tray for pt at this time
--- NOTE | 2024-02-26 13:19 | ADMGEN ---
This patient, Marcela Rayo, was admitted to IMU Room 204-01 at 1251. Patient/family oriented to hospital policies and general routines including ID bracelet, bed and alarms, visiting hours, pain management, procedures, bathroom and other care routines, personal items, smoking policy, room service/diet, and visiting hours. Information on how to activate the Rapid Response Team has been discussed. Patient/Family are encouraged to report perceived risks to care and to ask questions if they do not understand what they are told or what they should do.
[2024-02-26 14:27] LABS: Troponin I < 0.012 ng/mL (0.000-0.034)
[2024-02-26] MEDS: ACETAMINOPHEN 325 MG TABLET 650 MG PO (15:00)
--- NOTE | 2024-02-26 15:45 | PM.CNCAR ---
Assessment and Plan Assessment and plan (1) Chest pain: Qualifiers: Chest pain type: unspecified Qualified Code(s): R07.9 - Chest pain, unspecified Code(s): R07.9 - Chest pain, unspecified Status: Acute Assessment and Plan: Atypical. Lexiscan stress test is negative. Chest pain did occur shortly after eating lunch, and she does have a moderate-large hiatal hernia. Consider GI as etiology for her chest pain. No further cardiac workup at this time. (2) Essential hypertension: Code(s): I10 - Essential (primary) hypertension Status: Chronic Assessment and Plan: Continue home antihypertensive regimen. 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 (4) Chronic heart failure with preserved ejection fraction: Code(s): I50.32 - Chronic diastolic (congestive) heart failure Status: Acute Assessment and Plan: Stable. Compensated. Continue PO Lasix. Plan Patient can be discharged home from my standpoint. Will arrange follow-up in our office. We will sign off at this time. History of Present Illness History of Present Illness Consult date/time: 02/26/24 15:45 Requesting physician: Sylvie Dawson MD Consult reason: chest pain Reason For Visit: Chest pain Narrative: This is a 73 year old female with heart failure with preserved LVEF, hypertension, hyperlipidemia, severe pulmonary hypertension, type 2 diabetes mellitus who presented with chest pain, shortness of breath that occurred for about 10 minutes when she was brushing her hair in the bathroom. Had eaten lunch prior to that. Has not had recurrence of chest pain. Troponins are negative. EKG without ischemic changes. CXR shows mild emphysema, [id number] hiatal hernia. Review of Systems Review of Systems: All systems reviewed & are unremarkable except as noted in HPI and below (HPI) [facility] Past Medical History Medical History (Updated 02/26/24 @ 15:49 by Keiko Darling MD) Anxiety Bipolar II disorder Chronic anemia Effusion of knee joint right Essential hypertension Fracture Including fractures of the pelvis, right wrist, foot, and ankle. Gastroesophageal reflux disease Hiatal hernia History of deep venous thrombosis Hyperlipemia Hypothyroidism Irritable bowel syndrome with constipation Metabolic syndrome Mixed anxiety and depressive disorder Multiple nodules of lung Obese Recurrent urinary tract infection Right knee DJD Right knee pain Schizophrenia Type 2 diabetes mellitus Hemoglobin A1c was 6.8% in September 2019. Surgical History Surgical History History of section History of tubal ligation Family History Family History Grandparent Hypertension Father Diabetes mellitus Family history of alcoholism Family history of arthritis Family history of mental disorder Hypertension Mother Family history of arthritis Hypertension Daughter Family history of malignant neoplasm Other Family history of blood dyscrasia Social History Social History Social History: The patient is a resident of [facility]. Lifelong nonsmoker. No alcohol or illicit substance use. Her daughter Jing Marinelli is her healthcare power of cutter [employer] and she wishes to be a full code. Smoking status: Never smoker Second hand tobacco smoke exposure: No Alcohol intake: never Substance use: never Do You Feel Safe in your Home?: Yes Lack of
[2024-02-26] MEDS: MAG HYDROX/AL HYDROX/SIMETH 30 ML UDC PO (15:48)
--- NOTE | 2024-02-26 15:53 | PM.IMPN ---
Progress Note: A&P Assessment and Plan (1) Chest pain: Qualifiers: Chest pain type: unspecified Qualified Code(s): R07.9 - Chest pain, unspecified Code(s): R07.9 - Chest pain, unspecified Status: Acute (2) CHF (congestive heart failure): Qualifiers: Heart failure chronicity: chronic Heart failure type: combined systolic and diastolic Qualified Code(s): I50.42 - Chronic combined systolic (congestive) and diastolic (congestive) heart failure Code(s): I50.9 - Heart failure, unspecified Status: Acute (3) Bipolar II disorder: Code(s): F31.81 - Bipolar II disorder Status: Chronic (4) Type 2 diabetes mellitus: Qualifiers: Diabetes mellitus residential insulin use: with manager long term care use Diabetes mellitus complication status: without complication Qualified Code(s): E11.9 - Type 2 diabetes mellitus without complications; Z79.4 - predatory animal exterminator (current) use of insulin Code(s): E11.9 - Type 2 diabetes mellitus without complications Status: Chronic (5) GERD (gastroesophageal reflux disease): Code(s): K21.9 - Gastro-esophageal reflux disease without esophagitis Status: Acute (6) Pulmonary hypertension: Code(s): I27.20 - Pulmonary hypertension, unspecified Status: Acute Plan chest pain unclear etiologies, Need to rule out ACS Patient has history of diabetes, hypertension hyperlipidemia Follow serial troponin, EKG p.r.n., cardiac stress test is pending EKG shows sinus rhythm no specific ST-T changes Start aspirin 325 mg once, 81 mg daily p.o. pravastatin 0 mg daily p.o. Follow related panel consult last sawyer for evaluation treatment 3:50 p.m. cardiac stress test negative ischemia, troponin negative, patient has some acid reflux, suspecting GERD Start Protonix 40 mg daily p.o. Follow-up with primary care doctor in 1 week, COPD Stable Continue home medication : albuterol inhaler q.4 hours p.r.n. O2 therapy as needed essential hypertension Continue atenolol 50 mg t.i.d. p.o. hydralazine 50 mg t.i.d. p.o. lisinopril 10 mg daily p.o. Hypothyroidism Continue Synthroid 25 mcg daily p.o. psychiatric disorders Continue trazodone 200 mg q.h.s. Subjective Date/time seen: 02/26/24 15:53 Interval history: I saw exam patient, patient underwent cardiac stress test, patient denies chest pain, shortness breath abdomen pain, nausea vomiting. Patient was afebrile, hemodynamically stable Exam Narrative: GENERAL: Pleasant, in no acute distress. Well-nourished. - EYES: EOMI. Anicteric. - HENT: Moist mucous membranes. - LUNGS: Clear to auscultation bilaterally, no wheezing, rhonchi, or rales. - CARDIOVASCULAR: Regular rate and rhythm. No murmur. No JVD. - ABDOMEN: Soft, non-tender and non-distended. No palpable masses. - EXTREMITIES: No edema. Peripheral pulses 2+. Non-tender. - NEUROLOGIC: No focal neurological deficits. CN II-XII grossly intact. - PSYCHIATRIC: Awake, Alert and oriented x 3. Appropriate mood and affect. - SKIN: No rashes or lesions. Warm. - LYMPH: No cervical lymphadenopathy. Objective Data Vital Signs Vital Signs: Vital Signs - 24 hr 02/25/24 15:54 02/25/24 16:09 02/25/24 16:09 Temperature 99.2 F Pulse Rate 66 67 Respiratory Rate 19 Blood Pressure 182/81 H Pulse Oximetry 99 99 Oxygen Delivery Nasal Cannula Nasal Cannula Oxygen Flow Rate 3 3 02/25/24 15:57 02/25/24 17:56 02/25/24 18:15 Temperature Pulse Rate 68 72 Respiratory Rate 27 H 18 Blood Pressure 182/81 H Pulse Oximetry 97 98 Oxygen Delivery Oxygen Flow Rate 02/25/24 19:34 02/25/24 20:37 02/25/24 17:55 Temperature Pulse Rate 63 65 85 Respiratory Rate 20 22 H 18 Blood Pressure 172/86 H Pulse Oximetry 99 96 98 Oxygen Delivery Oxygen Flow Rate 02/25/24 19:50 02/25/24 21:46 02/25/24 19:50 Temperature Pulse Rate 71 69 71 Respiratory Rate 18 17 Blood Pres
--- NOTE | 2024-02-26 15:57 | PM.DS ---
DS: Admitting Diagnosis Discharge Date 02/26/24 Admitting Diagnosis chest pain DS: Discharge Diagnosis Discharge Diagnosis (1) Chest pain: Qualifiers: Chest pain type: unspecified Qualified Code(s): R07.9 - Chest pain, unspecified Code(s): R07.9 - Chest pain, unspecified Status: Acute (2) CHF (congestive heart failure): Qualifiers: Heart failure chronicity: chronic Heart failure type: combined systolic and diastolic Qualified Code(s): I50.42 - Chronic combined systolic (congestive) and diastolic (congestive) heart failure Code(s): I50.9 - Heart failure, unspecified Status: Acute (3) Bipolar II disorder: Code(s): F31.81 - Bipolar II disorder Status: Chronic (4) Type 2 diabetes mellitus: Qualifiers: Diabetes mellitus complication status: without complication Diabetes mellitus group home insulin use: with group home use Qualified Code(s): E11.9 - Type 2 diabetes mellitus without complications; Z79.4 - long term care phlebotomist (current) use of insulin Code(s): E11.9 - Type 2 diabetes mellitus without complications Status: Chronic (5) GERD (gastroesophageal reflux disease): Code(s): K21.9 - Gastro-esophageal reflux disease without esophagitis Status: Acute (6) Pulmonary hypertension: Code(s): I27.20 - Pulmonary hypertension, unspecified Status: Acute DS: Summary Hospital Course Hospital Course: 73-year-old female with history of CHF, HTN , hypothyroidism, diabetes, anxiety?? presented to ED with a chief complaint of chest pain.? patient had a sudden onset shortness breath, chest pain, lightheadedness when patient was in the bathroom brushing her hair. ? EMS was called, patient received nitroglycerin, and patient was brought to for evaluation treatment.? Patient need oxygen at night occasionally..? Upon arrival in the ED, patient? temperature 99.2?, uncontrolled blood pressure 182/81, BNP 2040, CXR does not show evidence of fluid overload, O2 saturation 100% on room air. BUN 17 creatinine 1.4 troponin pending, EKG shows sinus rhythm no specific ST-T changes the following med issues have been addressed during hospitalization chest pain unclear etiologies, Need to rule out ACS Patient has history of diabetes, hypertension hyperlipidemia Follow serial troponin, EKG p.r.n., cardiac stress test is pending EKG shows sinus rhythm no specific ST-T changes Start aspirin 325 mg once, 81 mg daily p.o. pravastatin 0 mg daily p.o. Follow related panel consult care technician for evaluation treatment 3:50 p.m. cardiac stress test negative ischemia, troponin negative, patient has some acid reflux, suspecting GERD Start Protonix 40 mg daily p.o. Follow-up with primary care doctor in 1 week, COPD Stable Continue home medication : albuterol inhaler q.4 hours p.r.n. O2 therapy as needed essential hypertension Continue atenolol 50 mg t.i.d. p.o. hydralazine 50 mg t.i.d. p.o. lisinopril 10 mg daily p.o. Hypothyroidism Continue Synthroid 25 mcg daily p.o. psychiatric disorders Continue trazodone 200 mg q.h.s. Time Spent with Patient Time attestation: Total time spent providing and/or coordinating discharge services: Exam Narrative: GENERAL: Pleasant, in no acute distress. Well-nourished. - EYES: EOMI. Anicteric. - HENT: Moist mucous membranes. - LUNGS: Clear to auscultation bilaterally, no wheezing, rhonchi, or rales. - CARDIOVASCULAR: Regular rate and rhythm. No murmur. No JVD. - ABDOMEN: Soft, non-tender and non-distended. No palpable masses. - EXTREMITIES: No edema. Peripheral pulses 2+. Non-tender. - NEUROLOGIC: No focal neurological deficits. CN II-XII grossly intact. - PSYCHIATRIC: Awake, Alert and oriented x 3. Appropriate mood and affect. - SKIN: No rashes or lesions. Warm. - LYMPH: No cervical lymphadenopathy. DS: Data Data Completed and Pending Labs on day of discharge: Labs from last 24 hour
== END 2024-02-26 16:30 | disposition home or self-care (01) ==
LOC: ANHED 16:51 → ANHIMU 22:12
PROVIDERS: Emergency Medicine; Admitting Provider Internal Medicine; Emergency Provider Student in an Organized Health Care Education/Training Program; PCP Internal Medicine; Visit Provider Hospitalist
DX: R07.9 Chest pain, unspecified (principal); I11.0 Hypertensive heart disease with heart failure; I50.42 Chronic combined systolic (congestive) and diastolic (congestive) heart failure; I27.20 Pulmonary hypertension, unspecified; J44.9 Chronic obstructive pulmonary disease, unspecified; E78.5 Hyperlipidemia, unspecified; E11.9 Type 2 diabetes mellitus without complications; E03.9 Hypothyroidism, unspecified; K58.1 Irritable bowel syndrome with constipation; D64.9 Anemia, unspecified; F31.81 Bipolar II disorder; F41.8 Other specified anxiety disorders; F20.9 Schizophrenia, unspecified; K21.9 Gastro-esophageal reflux disease without esophagitis; E66.9 Obesity, unspecified; Z68.31 Body mass index [BMI] 31.0-31.9, adult; Z86.718 Personal history of other venous thrombosis and embolism; Z99.81 Dependence on supplemental oxygen; Z79.51 Long term (current) use of inhaled steroids; Z79.891 Long term (current) use of opiate analgesic; Z79.84 Long term (current) use of oral hypoglycemic drugs; Z79.4 Long term (current) use of insulin
CPT/HCPCS: 36415; 71046; 78452; 80053; 80061; 83690; 83880; 84484; 85025; 85380; 85610; 85730; 93005; 93017; 96372; 96374; 99285; A9270; A9502; G0378; G0379; J0360; J1650